=== PATIENT | female | born 1930 | race Caucasian/White ===

== ENCOUNTER 2017-01-24 14:39 | Inpatient (IN) | payer BC, MEDICARE ==
[~2017-01-24 14:39] MED LIST: AMLO5TAB96 PO; ASPI81 PO; CALCIUM/MAG PO; COUM3TAB PO; FLOR250C PO; GLIM2TAB PO; GUAI600; METF-324 PO; METH1TAB29 PO; MONT10TA2 PO; TAB-TAB PO; TOPR50TA PO; VITA100017 PO
[2017-01-24 14:44] VITALS: BP 122/60; PULSE 67; RESP 16; TEMP 97.6; O2SAT 95
[2017-01-24] MEDS ORDERED: ASPI-516 CHEW (15:35)
[2017-01-24] MEDS ORDERED: CANA300T PO (15:35)
[2017-01-24] MEDS ORDERED: METO25TA3 PO (15:35)
[2017-01-24] MEDS ORDERED: [UNRECOGNIZED DRUG - REMARK] PO (15:35)
[2017-01-24] MEDS ORDERED: MULT1TAB46 PO (15:35)
[2017-01-24] MEDS ORDERED: SODI1TAB PO (15:35)
--- NOTE | 2017-01-24 15:47 | PD ---
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 Patient reports pain for the past 2 weeks. She is a poor historian. She denies any fever, chills, nausea, or vomiting. States she went to Dr. Harris's office today and was seen by a lady in the office who asked them to return a later time so that the doctor could see the wound. When he saw her, he recommended she come to the emergency room for admission to medical service and infectious disease consultation. Patient has history of diabetes and hypertension. 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 PFSH Past Medical History Arthritis: Yes Cancer: Yes (COLON) Cardiac Catheterization: Yes Cardiovascular Problems: Yes (CARDIAC STENT) Chemotherapy: No Chest Pain: Yes Diabetes: Yes Patient Takes Glucophage: Yes (metformin) Diminished Hearing: Yes Endocrine: Yes Gastrointestinal Disorders: Yes GERD: Yes Genitourinary: Yes (BLADDER INCONTINENCE) Hiatal Hernia: Yes Hypertension: Yes Immune Disorder: Yes Implanted Vascular Access Dvce: Yes Musculoskeletal: Yes Neurologic: Yes Psychiatric: No Reproductive: No Respiratory: No Migraines: Yes Radiation Therapy: No Ulcer: Yes (HX) PNEUMOCCOCAL Vaccine (Year): 1 Menopausal: Yes Past Surgical History Abdominal Surgery: Yes (COLON RESECTION ) Body Medical Devices: CARDIAC STENT Gynecologic Surgery: Yes ( ) Joint Replacement: Yes (BEATRIZ KNEE; BEATRIZ WRIST ) Oral Surgery: Yes (ADENOIDECTOMY) Other Surgery: Yes (NECK SURGERY 2007) Social History Alcohol Use: No Tobacco Use: No Substance Use: No Allergies-Medications (Allergen,Severity, Reaction): Coded Allergies: ipratropium (Unverified Allergy, Severe, MOUTH SWELLIN; ALLERGIC TO ALL NUTS, 01/24/17) latex (Unverified Allergy, Severe, CAN'T REMEMBER/SEVERE REACTION PER DOCTOR, 01/24/17) shellfish derived (Verified Allergy, Severe, Anaphylaxis, 01/24/17) lactose (Unverified Allergy, Mild, DIGESTION PROBLEMS, 01/24/17) penicillin G (Unverified Allergy, Mild, RASH, 01/24/17) iodine (Verified Allergy, Unknown, 01/24/17) Reported Meds & Prescriptions Reported Meds & Active Scripts Active Reported Invokana (Canagliflozin) 300 Mg Tab 300 Mg PO DAILY Take before 1st meal of day. [antithyroid] 30 Mg PO DAILY Sodium Chloride 1 Gram Tab 1 Gm PO BID Multi Vitamin Daily (Multiple Vitamin) 1 Tab Tab 1 Tab PO DAILY Aspirin 81 Mg Chew 81 Mg CHEW DAILY Metoprolol Tartrate 25 Mg Tab 25 Mg PO BID Review of Systems Except as stated in HPI: all other systems reviewed are Neg Physical Exam Narrative GENERAL: Well-nourished, well-developed female in acute distress. Afebrile. Ambulatory. SKIN: Focused skin assessment warm/dry. There is a 3-4 cm skin tear at the intergluteal cleft with barrier cream in place. No surrounding erythema. HEAD: Normocephalic. EYES: No scleral icterus. No injection or drainage. NECK: Supple, trachea midline. No JVD or lymphadenopathy. CARDIOVASCULAR: Regular rate and rhythm without murmurs, gallops, or rubs. RESPIRATORY: Breath sounds equal bilaterally. No accessory muscle use. GENITOURINARY: Examined in the presence of a nurse. Normal external genitalia. There is a 3 cm abscess that spontaneously draining to the right labia majora. It is tender to palpation. No obvious lymphangitis. Data Data Last Documented VS Vital Signs Date Time Temp Pulse Resp B/P (MAP) Pulse Ox O2 Delivery O2 Flow Rate FiO2 01/24/17 16:59 98 Nasal Cannula 2.00 01/24/17 16:59 01/24/17 14:53 18 01/24/17 14:44 97.6 67 Orders Orders Complete Blood Count With Diff (01/24/17 15:52) Comprehensive Metabolic Panel (01/24/17 15:52) Lactic Acid Sepsis Protocol (01/24/17 15:52) Blood Culture (01/24/17 15:52) Wound Culture And Gram Stain (01/24/17 15:52) Blood Glucose (01/24/17 15:52) Ecg Monitoring (01/24/17 15:52) Iv Access Insert/Monitor (01/24/17 15:52) Oximetry (01/24/17 15:52) Oxygen Administration (01/24/17 15:52) Aztreonam Inj (Azactam Inj) (01/24/17 15:52) Metronidazole 500 Mg Inj (Flagyl 500 Mg (01/24/17 15:52) Vancomycin Inj (Vancomycin Inj) (01/24/17 15:52) Admit Order (Ed Use Only) (01/24/17 ) Film Painter / Telemetry LOCO.Q8H (01/24/17 18:03) Vital Signs (Adult) Q4H (01/24/17 18:03) Activity Oob With Assistance (01/24/17 18:03) Notify Dr: Other (01/24/17 18:03) Place In Observation (01/24/17 ) Vital Signs (Adult) Q4H (01/24/17 18:04) Activity Oob With Assistance (01/24/17 18:04) Film Painter / Telemetry .CONTINUOUS (01/24/17 18:04) Diet 1800 Ada Cons Carb (01/24/17 Dinner) Diet Heart Healthy (01/24/17 Dinner) Sodium Chloride 0.9% Flush (Ns Flush) (01/24/17 18:15) Sodium Chloride 0.9% Flush (Ns Flush) (01/24/17 21:00) Basic Metabolic Panel (Bmp) (01/25/17 06:00) Complete Blood Count With Diff (01/25/17 06:00) Pt Request For Service (01/24/17 18:04) Case Management Consult (01/24/17 18:04) Naloxone Inj (Narcan Inj) (01/24/17 18:15) Labs Laboratory Tests Test 01/24/17 16:35 White Blood Count 6.5 TH/MM3 Red Blood Count 4.82 MIL/MM3 Hemoglobin 11.1 GM/DL Hematocrit 34.7 % Mean Corpuscular Volume 71.9 FL Mean Corpuscular Hemoglobin 23.1 PG Mean Corpuscular Hemoglobin Concent 32.1 % Red Cell Distribution Width 17.8 % Platelet Count 255 TH/MM3 Mean Platelet Volume 7.6 FL Neutrophils (%) (Auto) 69.3 % Lymphocytes (%) (Auto) 18.2 % Monocytes (%) (Auto) 10.2 % Eosinophils (%) (Auto) 1.9 % Basophils (%) (Auto) 0.4 % Neutrophils # (Auto) 4.5 TH/MM3 Lymphocytes # (Auto) 1.2 TH/MM3 Monocytes # (Auto) 0.7 TH/MM3 Eosinophils # (Auto) 0.1 TH/MM3 Basophils # (Auto) 0.0 TH/MM3 CBC Comment DIFF FINAL Differential Comment Blood Urea Nitrogen 14 MG/DL Creatinine 0.83 MG/DL Random Glucose 98 MG/DL Total Protein 7.0 GM/DL Albumin 3.0 GM/DL Calcium Level 8.7 MG/DL Alkaline Phosphatase 102 U/L Aspartate Amino Transf (AST/SGOT) 19 U/L Alanine Aminotransferase (ALT/SGPT) 12 U/L Total Bilirubin 0.3 MG/DL Sodium Level 129 MEQ/L Potassium Level 4.7 MEQ/L Chloride Level 95 MEQ/L Carbon Dioxide Level 28.2 MEQ/L Anion Gap 6 MEQ/L Estimat Glomerular Filtration Rate 65 ML/MIN Lactic Acid Level 0.9 mmol/L MDM Medical Decision Making Medical Screen Exam Complete: Yes Emergency Medical Condition: Yes Medical Record Reviewed: Yes Differential Diagnosis Abscess, cellulitis, Bartholin's cyst, folliculitis Narrative Course 86-year-old female with history of diabetes, hyponatremia, and hypertension presents to the emergency room for evaluation of right labial abscess that started an unknown amount of time ago. Patient reports pain for the past 2 weeks but is a poor historian. She denies history of fever, chills, nausea, or vomiting. States she went to her RECYCLE WORKER today, Dr. Harris, who recommended she come to the emergency room for IV antibiotics. Physical exam is reassuring. Patient is resting comfortably. Vital signs stable. There is a 3 cm spontaneously draining abscess to the right labia majora. It is extremely tender to palpation. CBC is essentially unremarkable. Shows mild anemia. CMP shows hyponatremia which is chronic for patient. Lactic acid is 0.9. Wound culture of the draining wound was collected. I spoke to patient's RECYCLE WORKER who states he would like to have the patient admitted for IV antibiotics and infectious disease consultation given her multiple comorbidities. He will be happy to consult. States he will not be taking her to to the OR for incision and drainage. Patient is agreeable to plan. I spoke to the hospitalist on-call , Dr. Carpio, who agrees to admit this patient to her service. Patient's primary care physician, Dr. Ortiz, will take over care in the morning. Diagnosis Primary Impression: Vulvar abscess Condition: Stable Abbey Sparrow Jan 24, 2017 15:47
[2017-01-24] MEDS ORDERED: VANCOMYCIN INJ 1,000 MG in SODIUM CHLOR 0.9% 250 ML INJ 250 ML IV STA (15:52)
[2017-01-24] MEDS ORDERED: metroNIDAZOLE 500 MG INJ 100 ML IV STA (15:52)
[2017-01-24] MEDS ORDERED: AZTREONAM INJ 2,000 MG in SODIUM CHLORIDE 0.9% INJ 100 ML IV STA (15:52)
[2017-01-24 16:59] VITALS: O2SAT 98
[2017-01-24 17:13] LABS: AUTOMATED NEUTROPHIL # 4.5 TH/MM3 (1.8-7.7); BASOPHIL % 0.4 % (0.0-2.0); EOSINOPHIL # 0.1 TH/MM3 (0-0.4); EOSINOPHIL % 1.9 % (0.0-4.0); HEMATOCRIT 34.7 % (35.0-46.0); HEMO FLAGS DIFF FINAL; LYMPH % 18.2 % (9.0-44.0); LYMPHOCYTE # 1.2 TH/MM3 (1.0-4.8); MEAN CELL VOLUME 71.9 FL (80.0-100.0); MEAN CORPUSCULAR HEMOGLOBIN 23.1 PG (27.0-34.0); MEAN CORPUSCULAR HGB CONC 32.1 % (32.0-36.0); MONO % 10.2 % (0.0-8.0); NEUT % 69.3 % (16.0-70.0); PLATELET COUNT 255 TH/MM3 (150-450); RED BLOOD COUNT 4.82 MIL/MM3 (4.00-5.30); RED CELL DISTRIBUTION WIDTH 17.8 % (11.6-17.2); WHITE BLOOD COUNT 6.5 TH/MM3 (4.0-11.0)
[2017-01-24 17:32] LABS: ALT (GPT) 12 U/L (10-53); ANION GAP 6 MEQ/L (5-15); AST (GOT) 19 U/L (15-37); BICARBONATE 28.2 MEQ/L (21.0-32.0); BLOOD UREA NITROGEN 14 MG/DL (7-18); CHLORIDE 95 MEQ/L (98-107); GLOMERULAR FILTRATION RATE 65 ML/MIN (>89); POTASSIUM 4.7 MEQ/L (3.5-5.1); SODIUM (NA) 129 MEQ/L (136-145)
[2017-01-24 17:35] LABS: ALKALINE PHOSPHATASE 102 U/L (45-117); TOTAL BILIRUBIN ADULT 0.3 MG/DL (0.2-1.0)
[2017-01-24] MEDS ORDERED: SODIUM CHLORIDE 0.9% FLUSH 10 ML FLUSH IV FLUSH PRN (18:15)
[2017-01-24] MEDS ORDERED: NALOXONE HCL 0.4 MG/ML AMP IV PUSH PRN (18:15)
--- NOTE | 2017-01-24 18:49 | HHI.HP ---
[facility] Unknown Admission Diagnosis Vulvar Abscess Diagnoses: Travel History International Travel<30 Days: No Contact w/Intl Traveler <30 Da: No Traveled to Known Affected Are: No History of Present Illness History from patient, ER physician, medication, interfere medical records. About 40 minutes into my interview with the patient, patient's daughter also presented at the bedside and provided further history. Patient herself is a poor historian. She does carry the diagnosis of dementia. The daughter is the power of criminal defense attorney. However patient is able to give me details of her symptoms though. Patient initially stated that she was "given funny tea at the place I live" --- - she then later reported that that was Metamucil. The daughter stated that it was also metformin. had diarrhea for 3-4 weeks lost weight 50lbs in past several months cant count how many times diarrhea very black stool no loss of appetite but was sick and tired of cooking since - thats why losing weight Today though, patient was sent by her dredge pumper Dr. Harris She was having some anemia abscess which is draining and patient thought that he was supposed to be done surgery. She reports she was not on any antibiotics as an outpatient at the assisted living facility where she lives. Per ER physician, they have discussed at length with patient's dredge pumper over the phone. He would like the patient to be admitted under medical service for IV antibiotics since patient is an elderly lady who lives at an assisted living facility without nursing care or ability to give IV antibiotics. She is also a diabetic. Review of Systems ROS Limitations: Poor Historian Except as stated in HPI: all other systems reviewed are Neg Past Family Social History Past Medical History Hypertension Diabetes CAD. Status post cardiac stent and angiogram History of CVA COPD History of colon cancer status post surgery. No chemotherapy. 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 Past Surgical History Colon resection Coronary angiogram and stenting Bilateral knee and wrist surgeries Adenoidectomy Neck surgery in 2007 Allergies: Coded Allergies: ipratropium (Unverified Allergy, Severe, MOUTH SWELLIN; ALLERGIC TO ALL NUTS, 01/24/17) latex (Unverified Allergy, Severe, CAN'T REMEMBER/SEVERE REACTION PER DOCTOR, 01/24/17) shellfish derived (Verified Allergy, Severe, Anaphylaxis, 01/24/17) lactose (Unverified Allergy, Mild, DIGESTION PROBLEMS, 01/24/17) penicillin G (Unverified Allergy, Mild, RASH, 01/24/17) iodine (Verified Allergy, Unknown, 01/24/17) Family History None that she knows of Social History Lives at [facility] Denies any smoking/alcohol abuse/drug abuse. Physical Exam Vital Signs Vital Signs Date Time Temp Pulse Resp B/P (MAP) Pulse Ox O2 Delivery O2 Flow Rate FiO2 01/24/17 16:59 98 Nasal Cannula 2.00 01/24/17 16:59 98 Nasal Cannula 2.00 01/24/17 14:53 18 01/24/17 14:44 97.6 67 16 122/60 (80) 95 Room Air Physical Exam GENERAL: This is a well-nourished, well-developed patient, in no apparent distress. Very pleasant, originally from [facility]. SKIN: No rashes, ecchymoses or lesions. Cool and dry. HEAD: Atraumatic. Normocephalic. No temporal or scalp tenderness. EYES: No scleral icterus. No injection or drainage. ENT: Nose without bleeding, purulent drainage or septal hematoma. Airway patent. NECK: Trachea midline. No JVD . Supple, nontender, no meningeal signs. CARDIOVASCULAR: Regular rate and rhythm without murmurs, gallops, or rubs. RESPIRATORY: Clear to auscultation. Breath sounds equal bilaterally. No wheezes , rales, or rhonchi. GASTROINTESTINAL: Abdomen soft, non-tender, nondistended. No guarding : right labia majora with spontaneous drainage MUSCULOSKELETAL: Extremities without clubbing, cyanosis, or edema. . No calf tenderness. NEUROLOGICAL: Awake and alert. Motor and sensory grossly within normal limits. Normal speech. Laboratory Laboratory Tests Test 01/24/17 16:35 White Blood Count 6.5 Red Blood Count 4.82 Hemoglobin 11.1 Hematocrit 34.7 Mean Corpuscular Volume 71.9 Mean Corpuscular Hemoglobin 23.1 Mean Corpuscular Hemoglobin Concent 32.1 Red Cell Distribution Width 17.8 Platelet Count 255 Mean Platelet Volume 7.6 Neutrophils (%) (Auto) 69.3 Lymphocytes (%) (Auto) 18.2 Monocytes (%) (Auto) 10.2 Eosinophils (%) (Auto) 1.9 Basophils (%) (Auto) 0.4 Neutrophils # (Auto) 4.5 Lymphocytes # (Auto) 1.2 Monocytes # (Auto) 0.7 Eosinophils # (Auto) 0.1 Basophils # (Auto) 0.0 CBC Comment DIFF FINAL Differential Comment Blood Urea Nitrogen 14 Creatinine 0.83 Random Glucose 98 Total Protein 7.0 Albumin 3.0 Calcium Level 8.7 Alkaline Phosphatase 102 Aspartate Amino Transf (AST/SGOT) 19 Alanine Aminotransferase (ALT/SGPT) 12 Total Bilirubin 0.3 Sodium Level 129 Potassium Level 4.7 Chloride Level 95 Carbon Dioxide Level 28.2 Anion Gap 6 Estimat Glomerular Filtration Rate 65 Lactic Acid Level 0.9 Date/Time Source Procedure Growth Status 01/24/17 16:40 Blood Peripheral Aerobic Blood Culture Pending Received 01/24/17 16:40 Blood Peripheral Anaerobic Blood Culture Pending Received 01/24/17 16:30 Wound Other Gram Stain - Final Resulted 01/24/17 16:30 Wound Other Wound Culture Pending Resulted Result Diagram: 01/24/17 1635 01/24/17 1635 Caprini VTE Risk Assessment Caprini VTE Risk Assessment: Mod/High Risk (score >= 2) Caprini Risk Assessment Model Point Value = 1 Point Value = 2 Point Value = 3 Point Value = 5 Age 41-60 Minor surgery BMI > 25 kg/m2 Swollen legs Varicose veins or History of unexplained or recurrent spontaneous Oral contraceptives or hormone replacement Sepsis (< 1 month) Serious lung disease, including pneumonia (< 1 month) Abnormal pulmonary function Acute myocardial infarction Congestive heart failure (< 1 month) History of inflammatory bowel disease Medical patient at bed rest Age 61-74 Arthroscopic surgery Major open surgery (> 45 min) Laparoscopic surgery (> 45 min) Malignancy Confined to bed (> 72 hours) Immobilizing plaster cast Central venous access Age >= 75 History of VTE Family history of VTE Factor V Leiden Prothrombin [id number] Lupus anticoagulant Anticardiolipin antibodies Elevated serum homocysteine Heparin-induced thrombocytopenia Other congenital or acquired thrombophilia Stroke (< 1 month) Elective arthroplasty Hip, pelvis, or leg fracture Acute spinal cord injury (< 1 month) Prophylaxis Regimen Total Risk Factor Score Risk Level Prophylaxis Regimen 0-1 Low Early ambulation 2 Moderate Order ONE of the following: *Sequential Compression Device (SCD) *Heparin 5000 units SQ BID 3-4 Higher Order ONE of the following medications: *Heparin 5000 units SQ TID *Enoxaparin/Lovenox 40 mg SQ daily (WT < 150 kg, CrCl > 30 mL/min) *Enoxaparin/Lovenox 30 mg SQ daily (WT < 150 kg, CrCl > 10-29 mL/min) *Enoxaparin/Lovenox 30 mg SQ BID (WT < 150 kg, CrCl > 30 mL/min) AND/OR *Sequential Compression Device (SCD) 5 or more Highest Order ONE of the following medications: *Heparin 5000 units SQ TID (Preferred with Epidurals) *Enoxaparin/Lovenox 40 mg SQ daily (WT < 150 kg, CrCl > 30 mL/min) *Enoxaparin/Lovenox 30 mg SQ daily (WT < 150 kg, CrCl > 10-29 mL/min) *Enoxaparin/Lovenox 30 mg SQ BID (WT < 150 kg, CrCl > 30 mL/min) AND *Sequential Compression Device (SCD) Assessment and Plan Assessment and Plan Impression: Spontaneous draining right labia or abscess Diabetic elderly patient with poor outpatient follow-up Diarrhea. Likely medications induced. However worsening her abscess issues. Hypertension Diabetes CAD. Status post cardiac stent and angiogram History of CVA COPD History of colon cancer status post surgery. No chemotherapy. 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 For now, patient was given vancomycin/azactam/Flagyl in the ER. We will continue with levofloxacin/Flagyl. Follow renal function. Resume home meds. Nursing orders have been written to check whether patient is still on steroids at home and whether she is taking thyroid supplements. Fingersticks monitoring with sliding scale coverage. DVT prophylaxis on Lovenox. Discussed Condition With patient, daughter, ER nurse, ER Ruth Cm MD Jan 24, 2017 18:49
[2017-01-24] MEDS: SODIUM CHLORIDE 0.9% FLUSH 10 ML FLUSH IV FLUSH SCH (21:00)
[2017-01-24] MEDS: METOPROLOL TARTRATE 25 MG TAB PO SCH (21:00)
[2017-01-24] MEDS: SODIUM CHLORIDE 1 GRAM TAB PO SCH (21:00)
[2017-01-24 21:18] VITALS: BP 164/75; PULSE 65; RESP 15; TEMP 97.4; O2SAT 99
[2017-01-24] MEDS: metroNIDAZOLE 500 MG INJ 100 ML IV SCH (23:00)
[2017-01-25] VITALS (7 sets, daily range): BP systolic 118–165; BP diastolic 57–90; PULSE 61–87; RESP 16–18; TEMP 97.5–98.2; O2SAT 92–97
[2017-01-25] MEDS: metroNIDAZOLE 500 MG INJ 100 ML IV SCH ×2 (06:28→11:55)
[2017-01-25] MEDS: MULTIVITAMIN TAB PO SCH (09:00)
[2017-01-25] MEDS: SODIUM CHLORIDE 0.9% FLUSH 10 ML FLUSH IV FLUSH SCH ×2 (09:00→22:17)
[2017-01-25] MEDS ORDERED: LEVOFLOXACIN 750 MG PREMIX INJ 150 ML IV SCH (09:00)
[2017-01-25] MEDS: SODIUM CHLORIDE 1 GRAM TAB PO SCH ×2 (09:00→22:16)
[2017-01-25] MEDS: METOPROLOL TARTRATE 25 MG TAB PO SCH ×2 (09:00→22:16)
[2017-01-25] MEDS: ASPIRIN 81 MG CHEW TAB CHEW SCH (09:00)
[2017-01-25 11:07] LABS: BASOPHIL % 0.5 % (0.0-2.0); EOSINOPHIL # 0.1 TH/MM3 (0-0.4); EOSINOPHIL % 2.9 % (0.0-4.0); HEMATOCRIT 33.8 % (35.0-46.0); HEMO FLAGS DIFF FINAL; LYMPH % 23.4 % (9.0-44.0); LYMPHOCYTE # 1.2 TH/MM3 (1.0-4.8); MEAN CORPUSCULAR HEMOGLOBIN 23.2 PG (27.0-34.0); MEAN CORPUSCULAR HGB CONC 32.3 % (32.0-36.0); MONO % 11.9 % (0.0-8.0); NEUT % 61.3 % (16.0-70.0); PLATELET COUNT 225 TH/MM3 (150-450); RED BLOOD COUNT 4.69 MIL/MM3 (4.00-5.30); WHITE BLOOD COUNT 4.9 TH/MM3 (4.0-11.0)
[2017-01-25 11:28] LABS: BICARBONATE 26.8 MEQ/L (21.0-32.0); POTASSIUM 4.1 MEQ/L (3.5-5.1)
--- NOTE | 2017-01-25 12:43 | HHI.HP ---
History of Present Illness Service Medicine Primary Care Physician Unknown Admission Diagnosis Vulvar Abscess Diagnoses: (1) Vulvar abscess History of Present Illness Patient is a 86 year old female who was sent to the ER per MANAGER LANGUAGE Dr. Harris for vulvar abscess. Patient is currently a resident at a assisted living facility. Per ER physician note, they have discussed at length with patient's paper cone drying machine operator over the phone. He would like the patient to be admitted under medical service for IV antibiotics since patient is an elderly lady who lives at an assisted living facility without nursing care or ability to give IV antibiotics. She is also a diabetic. Review of Systems Respiratory: DENIES: Cough, Snoring, Wheezing, Sputum production, Shortness of breath Cardiovascular: DENIES: Chest pain, Palpitations Gastrointestinal: DENIES: Constipation, Diarrhea, Nausea, Vomiting Genitourinary: COMPLAINS OF: Vaginal discharge (abcess noted with drainage) Psychiatric: DENIES: Anxiety, Depression Past Family Social History Allergies: Coded Allergies: ipratropium (Unverified Allergy, Severe, MOUTH SWELLIN; ALLERGIC TO ALL NUTS, 01/24/17) latex (Unverified Allergy, Severe, CAN'T REMEMBER/SEVERE REACTION PER DOCTOR, 01/24/17) shellfish derived (Verified Allergy, Severe, Anaphylaxis, 01/24/17) lactose (Unverified Allergy, Mild, DIGESTION PROBLEMS, 01/24/17) penicillin G (Unverified Allergy, Mild, RASH, 01/24/17) iodine (Verified Allergy, Unknown, 01/24/17) Past Medical History Past Medical History Hypertension Diabetes CAD. Status post cardiac stent and angiogram History of CVA COPD History of colon cancer status post surgery. No chemotherapy. 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 Past Surgical History Past Surgical History Colon resection Coronary angiogram and stenting Bilateral knee and wrist surgeries Adenoidectomy Neck surgery in 2007 Active Ordered Medications Current Medications Medications (Trade) Dose Ordered Sig/Maddie Route Start Time Stop Time Status Last Admin (NS Flush) 2 ml UNSCH PRN IV FLUSH 01/24/17 18:15 (NS Flush) 2 ml BID IV FLUSH 01/24/17 21:00 01/25/17 09:00 (Narcan Inj) 0.4 mg UNSCH PRN IV PUSH 01/24/17 18:15 Levofloxacin/ Dextrose 150 ml @ 100 mls/hr Q24H IV 12/20/17 09:00 01/25/17 09:00 Metronidazole 100 ml @ 100 mls/hr Q6H IV 01/24/17 23:00 01/25/17 11:55 (Aspirin Chew) 81 mg DAILY CHEW 01/25/17 09:00 01/25/17 09:00 (Lopressor) 25 mg BID PO 01/24/17 21:00 01/25/17 09:00 (Sodium Chloride) 1 gm BID PO 01/24/17 21:00 01/25/17 09:00 Patient Own Medication PT OWN MED: Canagliflozin (Invoka... DAILY PO 01/25/17 09:00 Future Hold (Theragran) 1 tab DAILY PO 01/25/17 09:00 01/25/17 09:00 Social History Past Medical History Hypertension Diabetes CAD. Status post cardiac stent and angiogram History of CVA COPD Social History Lives at [facility] Denies any smoking/alcohol abuse/drug abuse. Physical Exam Vital Signs Vital Signs Date Time Temp Pulse Resp B/P (MAP) Pulse Ox O2 Delivery O2 Flow Rate FiO2 01/25/17 08:16 98.1 87 18 165/73 (103) 97 01/25/17 06:54 87 01/25/17 03:40 98.1 86 18 141/65 (90) 95 01/25/17 00:19 97.5 68 16 143/70 (94) 95 01/24/17 21:18 97.4 65 15 164/75 (104) 99 01/24/17 19:45 01/24/17 16:59 98 Nasal Cannula 2.00 01/24/17 16:59 98 Nasal Cannula 2.00 01/24/17 14:53 18 01/24/17 14:44 97.6 67 16 122/60 (80) 95 Room Air Physical Exam GENERAL: This is a well-nourished, well-developed patient, in no apparent distress. Very pleasant, originally from [place]. SKIN: No rashes, ecchymoses or lesions. Cool and dry. HEAD: Atraumatic. Normocephalic. No temporal or scalp tenderness. EYES: No scleral icterus. No injection or drainage. ENT: Nose without bleeding, purulent drainage or septal hematoma. Airway patent. NECK: Trachea midline. No JVD . Supple, nontender, no meningeal signs. CARDIOVASCULAR: Regular rate and rhythm without murmurs, gallops, or rubs. RESPIRATORY: Clear to auscultation. Breath sounds equal bilaterally. No wheezes , rales, or rhonchi. GASTROINTESTINAL: Abdomen soft, non-tender, nondistended. No guarding : right labia majora with spontaneous drainage MUSCULOSKELETAL: Extremities without clubbing, cyanosis, or edema. . No calf tenderness. NEUROLOGICAL: Awake and alert. Motor and sensory grossly within normal limits. Normal speech Laboratory Laboratory Tests Test 01/24/17 16:35 01/25/17 10:33 White Blood Count 6.5 4.9 Red Blood Count 4.82 4.69 Hemoglobin 11.1 10.9 Hematocrit 34.7 33.8 Mean Corpuscular Volume 71.9 72.0 Mean Corpuscular Hemoglobin 23.1 23.2 Mean Corpuscular Hemoglobin Concent 32.1 32.3 Red Cell Distribution Width 17.8 18.0 Platelet Count 255 225 Mean Platelet Volume 7.6 7.4 Neutrophils (%) (Auto) 69.3 61.3 Lymphocytes (%) (Auto) 18.2 23.4 Monocytes (%) (Auto) 10.2 11.9 Eosinophils (%) (Auto) 1.9 2.9 Basophils (%) (Auto) 0.4 0.5 Neutrophils # (Auto) 4.5 3.0 Lymphocytes # (Auto) 1.2 1.2 Monocytes # (Auto) 0.7 0.6 Eosinophils # (Auto) 0.1 0.1 Basophils # (Auto) 0.0 0.0 CBC Comment DIFF FINAL DIFF FINAL Differential Comment Blood Urea Nitrogen 14 16 Creatinine 0.83 0.79 Random Glucose 98 141 Total Protein 7.0 Albumin 3.0 Calcium Level 8.7 8.3 Alkaline Phosphatase 102 Aspartate Amino Transf (AST/SGOT) 19 Alanine Aminotransferase (ALT/SGPT) 12 Total Bilirubin 0.3 Sodium Level 129 131 Potassium Level 4.7 4.1 Chloride Level 95 98 Carbon Dioxide Level 28.2 26.8 Anion Gap 6 6 Estimat Glomerular Filtration Rate 65 69 Lactic Acid Level 0.9 Date/Time Source Procedure Growth Status 01/24/17 16:40 Blood Peripheral Aerobic Blood Culture - Preliminary NO GROWTH IN 1 DAY Resulted 01/24/17 16:40 Blood Peripheral Anaerobic Blood Culture - Preliminary NO GROWTH IN 1 DAY Resulted 01/24/17 16:30 Wound Other Gram Stain - Final Resulted 01/24/17 16:30 Wound Culture - Preliminary S. Aureus Mrsa Gram Negative Aaron Resulted Result Diagram: 01/25/17 1033 01/25/17 1033 Caprinrosas VTE Risk Assessment Caprini VTE Risk Assessment: Mod/High Risk (score >= 2) Caprini Risk Assessment Model Point Value = 1 Point Value = 2 Point Value = 3 Point Value = 5 Age 41-60 Minor surgery BMI > 25 kg/m2 Swollen legs Varicose veins or History of unexplained or recurrent spontaneous Oral contraceptives or hormone replacement Sepsis (< 1 month) Serious lung disease, including pneumonia (< 1 month) Abnormal pulmonary function Acute myocardial infarction Congestive heart failure (< 1 month) History of inflammatory bowel disease Medical patient at bed rest Age 61-74 Arthroscopic surgery Major open surgery (> 45 min) Laparoscopic surgery (> 45 min) Malignancy Confined to bed (> 72 hours) Immobilizing plaster cast Central venous access Age >= 75 History of VTE Family history of VTE Factor V Leiden Prothrombin [id number] Lupus anticoagulant Anticardiolipin antibodies Elevated serum homocysteine Heparin-induced thrombocytopenia Other congenital or acquired thrombophilia Stroke (< 1 month) Elective arthroplasty Hip, pelvis, or leg fracture Acute spinal cord injury (< 1 month) Prophylaxis Regimen Total Risk Factor Score Risk Level Prophylaxis Regimen 0-1 Low Early ambulation 2 Moderate Order ONE of the following: *Sequential Compression Device (SCD) *Heparin 5000 units SQ BID 3-4 Higher Order ONE of the following medications: *Heparin 5000 units SQ TID *Enoxaparin/Lovenox 40 mg SQ daily (WT < 150 kg, CrCl > 30 mL/min) *Enoxaparin/Lovenox 30 mg SQ daily (WT < 150 kg, CrCl > 10-29 mL/min) *Enoxaparin/Lovenox 30 mg SQ BID (WT < 150 kg, CrCl > 30 mL/min) AND/OR *Sequential Compression Device (SCD) 5 or more Highest Order ONE of the following medications: *Heparin 5000 units SQ TID (Preferred with Epidurals) *Enoxaparin/Lovenox 40 mg SQ daily (WT < 150 kg, CrCl > 30 mL/min) *Enoxaparin/Lovenox 30 mg SQ daily (WT < 150 kg, CrCl > 10-29 mL/min) *Enoxaparin/Lovenox 30 mg SQ BID (WT < 150 kg, CrCl > 30 mL/min) AND *Sequential Compression Device (SCD) Assessment and Plan Problem List: (1) Vulvar abscess ICD Codes: N76.4 - Abscess of vulva Status: Acute (2) Diabetes ICD Codes: E11.9 - Type 2 diabetes mellitus without complications (3) Hyponatremia ICD Codes: E87.1 - Hypo-osmolality and hyponatremia (4) HTN (hypertension) ICD Codes: I10 - Essential (primary) hypertension Assessment and Plan 01/25/17 Vulvar abscess; Wound culture positive for MRSA will consult ID. MANAGER LANGUAGE consulted Diabetes: BS AC and HS on invokona will add SS Hyponatremia: NA131 on replacement will monitor HTN: continue metoprolol I and the SENIOR SYSTEMS ARCHITECT have both examined this patient and reviewed this note and I agree with these findings and plan of care. Juan Ortiz DO Discharge Planning bettie Aissatou Mcneal Jan 25, 2017 12:43
--- NOTE | 2017-01-25 15:10 | PD.ID.CON ---
History of Present Illness Service ID Consult Requested By Dr Harris Reason for Consult R labial abscess, MRSA Primary Care Physician Unknown Diagnoses: History of Present Illness Patient is a 86 year old female who was sent to the ER per WASHTUB WORKER HELPER Dr. Harris for vulvar abscess. Patient is currently a resident at a assisted living facility with multiple med problems including DM Pt is afebrile and her vss are normal Her WBC is within nl limits Pt is a quite poor historian, she thinks the tender lump was boothering her for couple month Dr Ba unroofed the abscess and sent for clx, she thinks pain improved after I dw Dr Harris - office clx is growing MRSA Surfice clx was obtained [facility] and its growing MRSA and a GNB Past Family Social History Allergies: Coded Allergies: ipratropium (Unverified Allergy, Severe, MOUTH SWELLIN; ALLERGIC TO ALL NUTS, 01/24/17) latex (Unverified Allergy, Severe, CAN'T REMEMBER/SEVERE REACTION PER DOCTOR, 01/24/17) shellfish derived (Verified Allergy, Severe, Anaphylaxis, 01/24/17) lactose (Unverified Allergy, Mild, DIGESTION PROBLEMS, 01/24/17) penicillin G (Unverified Allergy, Mild, RASH, 01/24/17) iodine (Verified Allergy, Unknown, 01/24/17) Past Medical History Hypertension Diabetes CAD. Status post cardiac stent and angiogram History of CVA COPD History of colon cancer status post surgery. No chemotherapy. 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 Physical Exam Vital Signs Vital Signs Date Time Temp Pulse Resp B/P (MAP) Pulse Ox O2 Delivery O2 Flow Rate FiO2 01/25/17 14:23 97.5 61 16 120/60 (80) 93 01/25/17 12:30 97.5 61 18 118/57 (77) 92 01/25/17 08:16 98.1 87 18 165/73 (103) 97 01/25/17 06:54 87 01/25/17 03:40 98.1 86 18 141/65 (90) 95 01/25/17 00:19 97.5 68 16 143/70 (94) 95 01/24/17 21:18 97.4 65 15 164/75 (104) 99 01/24/17 19:45 01/24/17 16:59 98 Nasal Cannula 2.00 01/24/17 16:59 98 Nasal Cannula 2.00 Physical Exam CONSTITUTIONAL/GENERAL: This is an aelderly frail female patient, in no apparent distress. TUBES/LINES/DRAINS: SKIN: No jaundice, rashes, or lesions. Skin temperature appropriate. Not diaphoretic. HEAD: Atraumatic. Normocephalic. EYES: Pupils equal and round and reactive. Extraocular motions intact. No scleral icterus. No injection or drainage. Fundi not examined. ENT: Hearing grossly normal. Nose without bleeding or purulent drainage. Throat without visible erythema, exudates, masses, or lesions. NECK: Trachea midline. Supple, nontender. CARDIOVASCULAR: Regular rate and rhythm without murmurs, gallops, or rubs. No JVD. Peripheral pulses symmetric. RESPIRATORY/CHEST: Symmetric, unlabored respirations. Clear to auscultation. Breath sounds equal bilaterally. No wheezes, rales, or rhonchi. GASTROINTESTINAL: Abdomen soft, non-tender, nondistended. No hepato-splenomegaly , or palpable masses. No guarding. Bowel sounds present. GENITOURINARY: Without palpable bladder distension. Mildly edematous R labia with small temnder unroofed lesion, no purulence, white devitalised tissue in the wound bed MUSCULOSKELETAL: Extremities without clubbing, cyanosis, or edema. No joint tenderness or effusion noted. No calf tenderness. No mottling or clubbing. LYMPHATICS: No palpable cervical or supraclavicular adenopathy. Mildly assymteric inguinal nodes, with R> L NEUROLOGICAL: Awake and alert. Motor and sensory grossly within normal limits. Follows commands. Clear speech . Moves all extremities. PSYCHIATRIC: No obvious anxiety/depression. no apparent hallucinations or other psychotic thought process. Laboratory Laboratory Tests Test 01/24/17 16:35 01/25/17 10:33 White Blood Count 6.5 4.9 Red Blood Count 4.82 4.69 Hemoglobin 11.1 10.9 Hematocrit 34.7 33.8 Mean Corpuscular Volume 71.9 72.0 Mean Corpuscular Hemoglobin 23.1 23.2 Mean Corpuscular Hemoglobin Concent 32.1 32.3 Red Cell Distribution Width 17.8 18.0 Platelet Count 255 225 Mean Platelet Volume 7.6 7.4 Neutrophils (%) (Auto) 69.3 61.3 Lymphocytes (%) (Auto) 18.2 23.4 Monocytes (%) (Auto) 10.2 11.9 Eosinophils (%) (Auto) 1.9 2.9 Basophils (%) (Auto) 0.4 0.5 Neutrophils # (Auto) 4.5 3.0 Lymphocytes # (Auto) 1.2 1.2 Monocytes # (Auto) 0.7 0.6 Eosinophils # (Auto) 0.1 0.1 Basophils # (Auto) 0.0 0.0 CBC Comment DIFF FINAL DIFF FINAL Differential Comment Blood Urea Nitrogen 14 16 Creatinine 0.83 0.79 Random Glucose 98 141 Total Protein 7.0 Albumin 3.0 Calcium Level 8.7 8.3 Alkaline Phosphatase 102 Aspartate Amino Transf (AST/SGOT) 19 Alanine Aminotransferase (ALT/SGPT) 12 Total Bilirubin 0.3 Sodium Level 129 131 Potassium Level 4.7 4.1 Chloride Level 95 98 Carbon Dioxide Level 28.2 26.8 Anion Gap 6 6 Estimat Glomerular Filtration Rate 65 69 Lactic Acid Level 0.9 Date/Time Source Procedure Growth Status 01/24/17 16:40 Blood Peripheral Aerobic Blood Culture - Preliminary NO GROWTH IN 1 DAY Resulted 01/24/17 16:40 Blood Peripheral Anaerobic Blood Culture - Preliminary NO GROWTH IN 1 DAY Resulted 01/24/17 16:30 Wound Other Gram Stain - Final Resulted 01/24/17 16:30 Wound Culture - Preliminary S. Aureus Mrsa Gram Negative Aaron Resulted Result Diagram: 01/25/17 1033 01/25/17 1033 Assessment and Plan Assessment and Plan L labia abscess, MRSA - also growing GNB in surface clx from unroofed abscess, but not in office clx ? contam. Multiple med prob Frail Advanced age chanfe abx to teflaro dc flagyl, azacta, levaquine, vanco Discussed Condition With dalia RN Cheryl Baca Dr, MD Jan 25, 2017 15:10
--- NOTE | 2017-01-25 16:17 | MB ---
cc: RUTHANN WERNER D.O., R. JOHN MD DATE OF CONSULTATION 01/25/2017 REASON FOR CONSULTATION Vulvar abscess. HISTORY OF THE PRESENT ILLNESS Ms. Caballero is an 86-year-old white female para 1-0-1-1 who came to the office yesterday with a vulvar bump. On examination she had a right vulvar abscess that was mildly indurated, draining pus. She is also diabetic and living in an assisted living facility and it was felt she needed to be hospitalized. Because of her multiple medical problems I felt she needed to be managed by her medical doctor and I could consult, so they could take care of her hypertension, her diabetes. She was admitted to the hospital for IV antibiotics and culture of this abscess which this morning grew out MRSA. I have asked the infectious disease specialist, Dr. Otto to see her as well and help with the management of her antibiotics. PAST COMMERCIAL LEASING MANAGER HISTORY She is para 1-0-1-1. She has been menopausal for many years. Her last Pap was 10/2012 and it was negative. PAST MEDICAL HISTORY Remarkable for: 1. Crohn disease. 2. Rheumatoid arthritis. 3. Tuberculosis. 4. Hypertension. 5. Herpes. 6. Colon cancer. PAST SURGICAL HISTORY Remarkable for: 1. Partial colectomy in 1999. 2. Bilateral knee replacements. 3. Bilateral wrist replacements. 4. Bilateral hip replacement. SOCIAL HISTORY She is a . She does not drink alcohol, smoke cigarettes or use recreational drugs. FAMILY HISTORY Her family history, her mother, father had high cholesterol. Her mother had diabetes. ALLERGIES PENICILLIN AND LATEX, LACTOSE, SHELLFISH AND IODINE. REVIEW OF SYSTEMS She denies any headache. No shortness of breath. No chest pain. No abdominal pain. Her bowel function is normal. She has had this lump in her vulva for several weeks. It is not so painful. PHYSICAL EXAMINATION GENERAL: Well-developed, well-nourished female in no acute distress. She looks very comfortable. VITAL SIGNS: Her blood pressure is 118/57. Her temperature is 97.5. She has been afebrile the entire time. Her pulse is 61, respirations are 18. HEENT: Normocephalic, atraumatic. NECK: Supple. Trachea is midline. CHEST: Clear to auscultation and percussion. CARDIOVASCULAR: Heart has regular rate and rhythm without murmur. ABDOMEN: Her abdomen is soft and nontender. She has got a vertical abdominal scar which is well-healed. PELVIC: Her external genitalia, the right vulva has a small area of induration 1 cm x 1 cm. It is draining pus. There is a nice large hole into this abscess. It is not sure so tender. EXTREMITIES: No clubbing, cyanosis or edema. ASSESSMENT/PLAN 1. Vulvar abscess. This represents MRSA infection and she needs to be on adequate coverage. The hospitalist has already started her on antibiotics. I have asked Dr. Otto to see her, to manage the antibiotics. The sensitivity should be ready tomorrow. 2. Diabetes mellitus. We got to make sure that her blood sugar stays under control and that she does not get out of control due to this abscess. 3. Hypertension. Her blood pressure looks excellent today. I do not have her current list of medications, but hopefully her daughter will bring them into the hospital so we can continue her medications as directed. She is in the assisted living facility. I would advise we will check her sensitivities to the MRSA infection and send her home with p.o. antibiotics until that lesion has healed, as long as her diabetes and hypertension are under control. R. Nikhil Harris MD RJV/KK /2:20 PM /3:33 PM
[2017-01-25] MEDS: CEFTAROLINE INJ 600 MG in SODIUM CHLORIDE 0.9% INJ 100 ML IV SCH (17:51)
[2017-01-26] VITALS (10 sets, daily range): BP systolic 109–184; BP diastolic 57–90; PULSE 61–89; RESP 17–24; TEMP 97.5–98.5; O2SAT 97–99
[2017-01-26] MEDS: CEFTAROLINE INJ 600 MG in SODIUM CHLORIDE 0.9% INJ 100 ML IV SCH ×2 (06:48→19:37)
[2017-01-26 09:33] LABS: HEMATOCRIT 36.9 % (35.0-46.0); MEAN CELL VOLUME 71.7 FL (80.0-100.0); MEAN CORPUSCULAR HEMOGLOBIN 23.6 PG (27.0-34.0); MEAN CORPUSCULAR HGB CONC 32.9 % (32.0-36.0); PLATELET COUNT 247 TH/MM3 (150-450); RED BLOOD COUNT 5.15 MIL/MM3 (4.00-5.30); RED CELL DISTRIBUTION WIDTH 17.6 % (11.6-17.2); REVIEW FLAG FINAL
[2017-01-26] MEDS: SODIUM CHLORIDE 0.9% FLUSH 10 ML FLUSH IV FLUSH SCH ×2 (09:36→21:40)
[2017-01-26] MEDS: ASPIRIN 81 MG CHEW TAB CHEW SCH (09:37)
[2017-01-26] MEDS: METOPROLOL TARTRATE 25 MG TAB PO SCH ×2 (09:37→21:39)
[2017-01-26] MEDS: MULTIVITAMIN TAB PO SCH (09:38)
[2017-01-26] MEDS: SODIUM CHLORIDE 1 GRAM TAB PO SCH ×2 (09:38→21:39)
[2017-01-26 09:56] LABS: ANION GAP 9 MEQ/L (5-15); BICARBONATE 25.8 MEQ/L (21.0-32.0); BLOOD UREA NITROGEN 17 MG/DL (7-18); CHLORIDE 96 MEQ/L (98-107); GLOMERULAR FILTRATION RATE 73 ML/MIN (>89); POTASSIUM 3.9 MEQ/L (3.5-5.1); SODIUM (NA) 131 MEQ/L (136-145)
[2017-01-26 10:08] LABS: FREE T4 1.31 NG/DL (0.76-1.46)
--- NOTE | 2017-01-26 12:35 | HHI.PR ---
Subjective Remarks In bed, nurse at bedside, voices she does not want to take her medications. Objective Vital Signs Date Time Temp Pulse Resp B/P (MAP) Pulse Ox O2 Delivery O2 Flow Rate FiO2 01/26/17 12:25 98.4 66 22 129/64 (85) 97 01/26/17 08:38 97.5 74 24 136/83 (100) 97 01/26/17 05:45 97.9 74 20 184/90 (121) 97 01/26/17 01:36 97.8 72 18 165/86 (112) 97 01/25/17 23:01 98.2 75 18 153/90 (111) 96 01/25/17 14:23 97.5 61 16 120/60 (80) 93 Vital Signs Date Time Temp Pulse Resp B/P (MAP) Pulse Ox O2 Delivery O2 Flow Rate FiO2 01/26/17 12:25 98.4 66 22 129/64 (85) 97 01/26/17 08:38 97.5 74 24 136/83 (100) 97 01/26/17 05:45 97.9 74 20 184/90 (121) 97 01/26/17 01:36 97.8 72 18 165/86 (112) 97 01/25/17 23:01 98.2 75 18 153/90 (111) 96 01/25/17 14:23 97.5 61 16 120/60 (80) 93 I/O 01/25/17 01/25/17 01/25/17 01/26/17 01/26/17 01/26/17 07:00 15:00 23:00 07:00 15:00 23:00 Intake Total 480 ml Balance 480 ml Intake Oral 480 ml # Voids 2 Result Diagram: 01/26/17 0850 01/26/17 0850 Objective Remarks Physical Exam GENERAL: This is a well-nourished, well-developed patient, in no apparent distress. Very pleasant, originally from [place]. SKIN: No rashes, ecchymoses or lesions. Cool and dry. HEAD: Atraumatic. Normocephalic. No temporal or scalp tenderness. EYES: No scleral icterus. No injection or drainage. ENT: Nose without bleeding, purulent drainage or septal hematoma. Airway patent. NECK: Trachea midline. No JVD . Supple, nontender, no meningeal signs. CARDIOVASCULAR: Regular rate and rhythm without murmurs, gallops, or rubs. RESPIRATORY: Clear to auscultation. Breath sounds equal bilaterally. No wheezes , rales, or rhonchi. GASTROINTESTINAL: Abdomen soft, non-tender, nondistended. No guarding : right labia majora with spontaneous drainage MUSCULOSKELETAL: Extremities without clubbing, cyanosis, or edema. . No calf tenderness. NEUROLOGICAL: Awake and alert. Motor and sensory grossly within normal limits. Normal speech Medications and IVs Teflaro Iv q12 Assessment and Plan Assessment and Plan 03/28/16 Vulvar abscess; Wound culture positive for MRSA will consult ID. PAVER consulted Diabetes: BS AC and HS on invokona will add SS Hyponatremia: NA131 on replacement will monitor HTN: continue metoprolol 01/26/17- Vulvar abscess - Followed By ID, MRSA, contact isolation, Tefalor Q12 DM- BS controlled, A1c pending Hyponatremia- Na 131 today, on Na tab HTN- On metoprolol will add prn. Mariel Luque Jan 26, 2017 12:35
--- NOTE | 2017-01-26 12:49 | HHI.IDPN ---
Subjective Subjective Remarks pt is doing good no c/o Grew MRSA, Proteus both S to Bactrim Allergies: Coded Allergies: ipratropium (Unverified Allergy, Severe, MOUTH SWELLIN; ALLERGIC TO ALL NUTS, 01/24/17) latex (Unverified Allergy, Severe, CAN'T REMEMBER/SEVERE REACTION PER DOCTOR, 01/24/17) shellfish derived (Verified Allergy, Severe, Anaphylaxis, 01/24/17) lactose (Unverified Allergy, Mild, DIGESTION PROBLEMS, 01/24/17) penicillin G (Unverified Allergy, Mild, RASH, 01/24/17) iodine (Verified Allergy, Unknown, 01/24/17) Objective . Vital Signs Date Time Temp Pulse Resp B/P (MAP) Pulse Ox O2 Delivery O2 Flow Rate FiO2 01/26/17 12:25 98.4 66 22 129/64 (85) 97 01/26/17 08:38 97.5 74 24 136/83 (100) 97 01/26/17 05:45 97.9 74 20 184/90 (121) 97 01/26/17 01:36 97.8 72 18 165/86 (112) 97 01/25/17 23:01 98.2 75 18 153/90 (111) 96 01/25/17 14:23 97.5 61 16 120/60 (80) 93 . Laboratory Tests Test 01/24/17 16:35 01/25/17 10:33 01/26/17 08:50 White Blood Count 6.5 TH/MM3 4.9 TH/MM3 6.0 TH/MM3 Red Blood Count 4.82 MIL/MM3 4.69 MIL/MM3 5.15 MIL/MM3 Hemoglobin 11.1 GM/DL 10.9 GM/DL 12.1 GM/DL Hematocrit 34.7 % 33.8 % 36.9 % Mean Corpuscular Volume 71.9 FL 72.0 FL 71.7 FL Mean Corpuscular Hemoglobin 23.1 PG 23.2 PG 23.6 PG Mean Corpuscular Hemoglobin Concent 32.1 % 32.3 % 32.9 % Red Cell Distribution Width 17.8 % 18.0 % 17.6 % Platelet Count 255 TH/MM3 225 TH/MM3 247 TH/MM3 Mean Platelet Volume 7.6 FL 7.4 FL 7.4 FL Neutrophils (%) (Auto) 69.3 % 61.3 % Lymphocytes (%) (Auto) 18.2 % 23.4 % Monocytes (%) (Auto) 10.2 % 11.9 % Eosinophils (%) (Auto) 1.9 % 2.9 % Basophils (%) (Auto) 0.4 % 0.5 % Neutrophils # (Auto) 4.5 TH/MM3 3.0 TH/MM3 Lymphocytes # (Auto) 1.2 TH/MM3 1.2 TH/MM3 Monocytes # (Auto) 0.7 TH/MM3 0.6 TH/MM3 Eosinophils # (Auto) 0.1 TH/MM3 0.1 TH/MM3 Basophils # (Auto) 0.0 TH/MM3 0.0 TH/MM3 CBC Comment DIFF FINAL DIFF FINAL Differential Comment Laboratory Tests Test 01/24/17 16:35 01/25/17 10:33 01/26/17 08:50 Blood Urea Nitrogen 14 MG/DL 16 MG/DL 17 MG/DL Creatinine 0.83 MG/DL 0.79 MG/DL 0.76 MG/DL Random Glucose 98 MG/DL 141 MG/DL 82 MG/DL Total Protein 7.0 GM/DL Albumin 3.0 GM/DL Calcium Level 8.7 MG/DL 8.3 MG/DL 8.7 MG/DL Alkaline Phosphatase 102 U/L Aspartate Amino Transf (AST/SGOT) 19 U/L Alanine Aminotransferase (ALT/SGPT) 12 U/L Total Bilirubin 0.3 MG/DL Sodium Level 129 MEQ/L 131 MEQ/L 131 MEQ/L Potassium Level 4.7 MEQ/L 4.1 MEQ/L 3.9 MEQ/L Chloride Level 95 MEQ/L 98 MEQ/L 96 MEQ/L Carbon Dioxide Level 28.2 MEQ/L 26.8 MEQ/L 25.8 MEQ/L Anion Gap 6 MEQ/L 6 MEQ/L 9 MEQ/L Estimat Glomerular Filtration Rate 65 ML/MIN 69 ML/MIN 73 ML/MIN Lactic Acid Level 0.9 mmol/L 25-Hydroxy Vitamin D Total 50.5 ng/ML Free Thyroxine 1.31 NG/DL Free Triiodothyronine (T3) pg/dL 2.10 PG/ML Thyroid Stimulating Hormone 3rd Gen 1.250 uIU/ML Microbiology Date/Time Source Procedure Growth Status 01/24/17 16:40 Blood Peripheral Aerobic Blood Culture - Preliminary NO GROWTH IN 2 DAYS Resulted 01/24/17 16:40 Blood Peripheral Anaerobic Blood Culture - Preliminary NO GROWTH IN 2 DAYS Resulted 01/24/17 16:35 Blood Peripheral Aerobic Blood Culture - Preliminary NO GROWTH IN 2 DAYS Resulted 01/24/17 16:35 Blood Peripheral Anaerobic Blood Culture - Preliminary NO GROWTH IN 2 DAYS Resulted 01/24/17 16:30 Wound Other Gram Stain - Final Complete 01/24/17 16:30 Wound Culture - Final S. Aureus Mrsa Proteus Mirabilis Complete Physical Exam CONSTITUTIONAL/GENERAL: no apparent distress. TUBES/LINES/DRAINS: SKIN: No jaundice, rashes, or lesions. GASTROINTESTINAL: Abdomen soft, non-tender, nondistended. No hepato- splenomegaly, or palpable masses. No guarding. Bowel sounds present. GENITOURINARY: Without palpable bladder distension. R labia with minimal edema, no erythema or pain Minimal drainage MUSCULOSKELETAL: Extremities without clubbing, cyanosis, or edema. NEUROLOGICAL: Awake and alert. Motor and sensory grossly within normal limits. Follows commands. Clear speech . Moves all extremities. PSYCHIATRIC: No obvious anxiety/depression. no apparent hallucinations or other psychotic thought process. Assessment & Plan Remarks L labia abscess, MRSA and Proteus - also growing GNB in surface clx from unroofed abscess, but not in office clx ? contam. Multiple med prob Frail Advanced age chanfe abx to Bactrim DS 1 PO BID x7 days OK to dc home dw Dr Steven Otto,Cheryl Holden MD Jan 26, 2017 12:49
[2017-01-26] MEDS ORDERED: BACT800T5 PO (12:59)
[2017-01-26 14:16] LABS: HEMOGLOBIN A1a 1.4 %; HEMOGLOBIN A1b 0.9 %; HEMOGLOBIN Ao 84.9 %; HEMOGLOBIN LA1C 1.9 %; HEMOGLOBIN P3 3.9 %
--- NOTE | 2017-01-26 17:55 | HHI.PR ---
Subjective Remarks Pt is sleeping now Objective Vital Signs Date Time Temp Pulse Resp B/P (MAP) Pulse Ox O2 Delivery O2 Flow Rate FiO2 01/26/17 16:02 98.5 62 22 139/67 (91) 97 01/26/17 12:25 98.4 66 22 129/64 (85) 97 01/26/17 08:38 97.5 74 24 136/83 (100) 97 01/26/17 05:45 97.9 74 20 184/90 (121) 97 01/26/17 01:36 97.8 72 18 165/86 (112) 97 01/25/17 23:01 98.2 75 18 153/90 (111) 96 I/O 01/25/17 01/25/17 01/25/17 01/26/17 01/26/17 01/26/17 07:00 15:00 23:00 07:00 15:00 23:00 Intake Total 480 ml Balance 480 ml Intake Oral 480 ml # Voids 2 Result Diagram: 01/26/17 0850 01/26/17 0850 Other Results resting comfortably in bed..sleeping Assessment and Plan Problem List: (1) Vulvar abscess ICD Codes: N76.4 - Abscess of vulva Status: Acute Assessment and Plan Vulvar abscess with MRSA. ID suggested bactrim and I will order this. May go home tomorrow if tolerating Bactrim. Will d/c IV antibiotics tomorrow if doing well. Tate Harris MD Jan 26, 2017 17:55
[2017-01-26] MEDS: SULFAMETHOXAZOLE-TRIMETHOPRIM DS 800-160 MG TAB PO SCH (21:39)
[2017-01-27 03:30] VITALS: BP 133/62; PULSE 68; RESP 16; TEMP 97.7; O2SAT 97
[2017-01-27 04:00] VITALS: PULSE 75
[2017-01-27] MEDS: CEFTAROLINE INJ 600 MG in SODIUM CHLORIDE 0.9% INJ 100 ML IV SCH (05:01)
[2017-01-27 07:06] VITALS: PULSE 75
[2017-01-27 07:55] VITALS: BP 151/72; PULSE 73; RESP 22; TEMP 98.6; O2SAT 96
[2017-01-27] MEDS: SODIUM CHLORIDE 0.9% FLUSH 10 ML FLUSH IV FLUSH SCH (09:13)
[2017-01-27] MEDS: SODIUM CHLORIDE 1 GRAM TAB PO SCH (09:14)
[2017-01-27] MEDS: ASPIRIN 81 MG CHEW TAB CHEW SCH (09:14)
[2017-01-27] MEDS: MULTIVITAMIN TAB PO SCH (09:14)
[2017-01-27] MEDS: SULFAMETHOXAZOLE-TRIMETHOPRIM DS 800-160 MG TAB PO SCH (09:14)
[2017-01-27] MEDS: METOPROLOL TARTRATE 25 MG TAB PO SCH (09:18)
--- NOTE | 2017-01-27 11:07 | HHI.DS ---
Discharge Summary Admission Date Jan 24, 2017 at 18:05 Admitting Diagnosis Vulvar Abscess CBC/BMP: 01/26/17 0850 01/26/17 0850 Significant Findings Laboratory Tests Test 01/24/17 16:35 01/25/17 10:33 01/26/17 08:50 Hemoglobin 11.1 GM/DL (11.6-15.3) 10.9 GM/DL (11.6-15.3) Hematocrit 34.7 % (35.0-46.0) 33.8 % (35.0-46.0) Mean Corpuscular Volume 71.9 FL (80.0-100.0) 72.0 FL (80.0-100.0) 71.7 FL (80.0-100.0) Mean Corpuscular Hemoglobin 23.1 PG (27.0-34.0) 23.2 PG (27.0-34.0) 23.6 PG (27.0-34.0) Red Cell Distribution Width 17.8 % (11.6-17.2) 18.0 % (11.6-17.2) 17.6 % (11.6-17.2) Monocytes (%) (Auto) 10.2 % (0.0-8.0) 11.9 % (0.0-8.0) Albumin 3.0 GM/DL (3.4-5.0) Sodium Level 129 MEQ/L (136-145) 131 MEQ/L (136-145) 131 MEQ/L (136-145) Chloride Level 95 MEQ/L (98-107) 96 MEQ/L (98-107) Estimat Glomerular Filtration Rate 65 ML/MIN (>89) 69 ML/MIN (>89) 73 ML/MIN (>89) Random Glucose 141 MG/DL (74-106) Calcium Level 8.3 MG/DL (8.5-10.1) Free Triiodothyronine (T3) pg/dL 2.10 PG/ML (2.18-3.98) PE at Discharge GENERAL: Well-nourished, well-developed patient. SKIN: Warm and dry. HEAD: Normocephalic. EYES: No scleral icterus. No injection or drainage. NECK: Supple, trachea midline. No JVD or lymphadenopathy. CARDIOVASCULAR: Regular rate and rhythm without murmurs, gallops, or rubs. RESPIRATORY: Breath sounds equal bilaterally. No accessory muscle use. GASTROINTESTINAL: Abdomen soft, non-tender, nondistended. EXTREMITIES: No cyanosis, or edema. NEUROLOGICAL: Awake, alert, and oriented x 3. Non-focal. Labia erythematous but immproved Hospital Course pt admitted with vulvar abscess open and draining , MRSA cultured, ID and FLOW SPECIALIST consulted pt ultimately treated with bactrim ds vulva improved will dc home fu clyde xenia and myself julianne Discharge Disposition: [facility] Discharge Instructions DIET: Follow Instructions for: As Tolerated, No Restrictions Activities you can perform: Regular-No Restrictions New Medications: Sulfamethoxazole-Trimethoprim (Bactrim DS) 800-160 Mg Tab 1 TAB PO BID for Infection for 7 Days, #14 TAB 0 Refills Additional Information Inpatient Medications Aspirin (Aspirin Chew) 81 mg DAILY CHEW Last administered on 01/27/17 09:14; Start 01/25/17 at 09:00 Aztreonam 2000 mg/ Sodium Chloride 100 ml @ 200 mls/hr ONCE STAT IV Last administered on 01/24/17 17:59; Start 01/24/17 at 15:52; Stop 01/25/17 at 15 :01; Status DC Ceftaroline Fosamil 600 mg/ Sodium Chloride 100 ml @ 100 mls/hr Q12H IV Last administered on 01/27/17 05:01; Start 01/25/17 at 18:00 Levofloxacin/ Dextrose 150 ml @ 100 mls/hr Q24H IV Last administered on 09:00; Start 01/25/17 at 09:00; Stop 01/25/17 at 15:01; Status DC Metoprolol Tartrate (Lopressor) 25 mg BID PO Last administered on 01/27/17 09 :18; Start 01/24/17 at 21:00 Metronidazole 100 ml @ 100 mls/hr Q6H IV Last administered on 01/25/17 11:55 ; Start 01/24/17 at 23:00; Stop 01/25/17 at 15:01; Status DC Multivitamins (Theragran) 1 tab DAILY PO Last administered on 01/27/17 09:14 ; Start 01/25/17 at 09:00 Naloxone HCl (Narcan Inj) 0.4 mg UNSCH PRN IV PUSH SEE LABEL COMMENTS; Start 01/24/17 at 18:15 Patient Own Medication PT OWN MED: Canagliflozin (Invoka... DAILY PO ; Start at 09:00; Status Future Hold Sodium Chloride (NS Flush) 2 ml BID IV FLUSH Last administered on 01/27/17 09 :13; Start 01/24/17 at 21:00 Sodium Chloride (Sodium Chloride) 1 gm BID PO Last administered on 01/27/17 09:14; Start 01/24/17 at 21:00 Trimethoprim/ Sulfamethoxazole (Bactrim Ds 800-160 Mg) 1 tab Q12HR PO Last administered on 01/27/17 09:14; Start 01/26/17 at 21:00 Vancomycin HCl 1000 mg/Sodium Chloride 250 ml @ 250 mls/hr ONCE STAT IV Last administered on 01/24/17 17:30; Start 01/24/17 at 15:52; Stop 01/24/17 at 16 :51; Status DC Juan Ortiz DO Jan 27, 2017 11:07
[2017-01-27 11:45] VITALS: BP 107/64; PULSE 66; RESP 24; TEMP 98.3; O2SAT 96
== END 2017-01-27 14:16 | DRG 758 ==
LOC: NEPC 14:39 → NEDA 18:05 → NEPFCDU 20:03 → OBSVTOIN 01-25 15:08
PROVIDERS: ADMIT Family Medicine; ATTEND Family Medicine
DX: N76.4 Abscess of vulva (principal); E27.40 Unspecified adrenocortical insufficiency; F03.90 Unspecified dementia, unspecified severity, without behavioral disturbance, psychotic disturbance, mood disturbance, and anxiety; B95.62 Methicillin resistant Staphylococcus aureus infection as the cause of diseases classified elsewhere; I10 Essential (primary) hypertension; E11.9 Type 2 diabetes mellitus without complications; E87.1 Hypo-osmolality and hyponatremia; Z79.84 Long term (current) use of oral hypoglycemic drugs; I25.10 Atherosclerotic heart disease of native coronary artery without angina pectoris; Z95.5 Presence of coronary angioplasty implant and graft; R32 Unspecified urinary incontinence; J44.9 Chronic obstructive pulmonary disease, unspecified; Z85.038 Personal history of other malignant neoplasm of large intestine; Z86.73 Personal history of transient ischemic attack (TIA), and cerebral infarction without residual deficits; H91.90 Unspecified hearing loss, unspecified ear; Z79.82 Long term (current) use of aspirin; Z96.653 Presence of artificial knee joint, bilateral; Z96.643 Presence of artificial hip joint, bilateral; Z96.632 Presence of left artificial wrist joint; Z96.631 Presence of right artificial wrist joint
CPT/HCPCS: 80048; 80053; 82306; 83036; 83605; 84439; 84443; 84481; 85025; 85027; 86403; 87040; 87070; 87077; 87147; 87186; 96365; 96376; G0378; G8987-GP; G8988-GP; J0712; J1956; J3370; J7050

== ENCOUNTER 2017-10-27 16:42 | Inpatient (IN) ==
--- NOTE | 2017-10-27 17:44 | ED ---
HPI General Chief complaint: Recheck/Abnormal Lab/Rx Stated complaint: Left foot doctor sent Time Seen by Provider: 10/27/17 17:08 Source: patient, family and old records reviewed Mode of arrival: ambulatory Limitations: no limitations History of Present Illness HPI narrative: 87-year-old woman presents emergency department sent from her electric meter installer helper for evaluation and admission for diabetic foot wound. She saw her electric meter installer helper today. She has had a wound on her left foot for the past week or so. Worsening pain redness and swelling. Saw a electric meter installer helper today and states that it was probing to bone, was sent for admission, labs, IV antibiotics, MRI. No fevers. No nausea vomiting. No chest pain or trouble breathing. She otherwise had been feeling generally well and healthy. Is no aggravating or alleviating factors. Pain is confined to the foot and the toe, with no radiation up into theleg. Related Data Home Medications Medication Instructions Recorded Confirmed Unable to Obtain Home Meds 10/27/17 10/27/17 Allergies Allergy/AdvReac Type Severity Reaction Status Date / Time ipratropium Allergy Severe MOUTH Verified 10/27/17 17:39 SWELLIN; ALLERGIC TO ALL NUTS latex Allergy Severe CAN'T Verified 10/27/17 17:39 REMEMBER/SEVERE REACTION PER DOCTOR shellfish derived Allergy Severe Anaphylaxis Verified 10/27/17 17:39 lactose Allergy Mild DIGESTION Verified 10/27/17 17:39 PROBLEMS penicillin G Allergy Mild RASH Verified 10/27/17 17:39 iodine Allergy Unknown Anaphylaxis Verified 10/27/17 17:39 Review of Systems ROS: all other systems reviewed are negative [facility] Medical History Medical History Diabetes type 2, controlled (Acute) HTN (hypertension) (Acute) Rheumatoid arthritis (Acute) Surgical History Surgical History History of bilateral knee replacement (Acute) History of hip surgery (Acute) Social History Social History Smoking Status: Never smoker How Often Do You Have a Drink Containing Alcohol: Never Recent Out of Country Travel within the Last 8 Weeks: No Immunization History Tetanus Immunization: Unsure Hx Influenza Vaccine This Season: No Exam Narrative Exam Narrative: GENERAL: 87-year-old woman, well-appearing, nontoxic. SKIN: Focused skin assessment warm/dry. HEAD: Atraumatic. Normocephalic. EYES: Pupils equal and round. No scleral icterus. No injection or drainage. ENT: No nasal bleeding or discharge. Mucous membranes pink and moist. NECK: Trachea midline. No JVD. CARDIOVASCULAR: Regular rate and rhythm. No murmur appreciated. RESPIRATORY: No accessory muscle use. Clear to auscultation. Breath sounds equal bilaterally. GASTROINTESTINAL: Abdomen soft, non-tender, nondistended. Hepatic and splenic margins not palpable. MUSCULOSKELETAL: No obvious deformities. Left foot is erythematous and red especially about the dorsum up to about the midfoot. Small ulcer on the dorsum of the left third toe. Purulent drainage coming from the ulceration. NEUROLOGICAL: Awake and alert. No obvious cranial nerve deficits. Motor grossly within normal limits. Normal speech. PSYCHIATRIC: Appropriate mood and affect; insight and judgment normal. Course Initial Documented Vital Signs Temperature 97.3 F L 10/27/17 16:51 Pulse Rate 86 10/27/17 16:51 Respiratory Rate 17 10/27/17 16:51 Blood Pressure 143/71 H 10/27/17 16:51 Pulse Oximetry 97 10/27/17 16:51 Last Documented Vital Signs Temperature 97.3 F L 10/27/17 16:51 Pulse Rate 86 10/27/17 16:51 Respiratory Rate 17 10/27/17 16:51 Blood Pressure 143/71 H 10/27/17 16:51 Pulse Oximetry 97 10/27/17 16:51 Medical Decision Making [facility] Narrative Medical decision making narrative: 87-year-old woman with diabetic foot infection, reportedly probing to bone, sent by podiatry for admission IV antibiotics MRI. We will plan on admission to medicine, labs ordered, antibiotics ordered. Patient is penicillin allergic. MRI ordered. Spoke with Dr. Abad. Will consult on patient. Spoke with Dr. Eldridge. Will admit patient. Medical Screen Exam Complete: Yes Emergency Medical Condition: Yes Lab Data Result diagrams: 10/27/17 17:30 10/27/17 17:30 Lab Results 10/27/17 Range/Units 17:30 WBC 6.8 (4.0-11.0) th/mm3 RBC 5.31 H (4.00-5.30) mil/mm3 Hgb 14.1 (11.6-15.3) gm/dL Hct 42.2 (35.0-46.0) % MCV 79.5 L (80.0-100.0) fL MCH 26.6 L (27.0-34.0) pg MCHC 33.5 (32.0-36.0) % RDW 15.6 (11.6-17.2) % Plt Count 245 (150-450) th/mm3 MPV 7.8 (7.0-11.0) fL Neut % (Auto) 71.2 H (16.0-70.0) % Lymph % (Auto) 15.3 (9.0-44.0) % Pacific % (Auto) 11.2 H (0.0-8.0) % Eos % (Auto) 1.9 (0.0-4.0) % Baso % (Auto) 0.4 (0.0-2.0) % Neut # (Auto) 4.8 (1.8-7.7) th/mm3 Lymph # (Auto) 1.0 (1.0-4.8) th/mm3 [place] # (Auto) 0.8 (0.0-0.9) th/mm3 Eos # (Auto) 0.1 (0.0-0.4) th/mm3 Baso # (Auto) 0.0 (0.0-0.2) th/mm3 WBC Differential . Differential Comment Auto diff final Discharge Plan Discharge Disposition Patient Disposition: 30 Still Patient Physicians Team ED Provider: Amadeo Adams Rxs /Orders / Referrals /Forms Prescriptions: No Action Unable to Obtain Home Meds RF: 0 Discharge Interventions Interventions: Vital Signs Last Done: 10/27/17 16:51 Status ED Status: With Doctor
[2017-10-27] MEDS ORDERED: Vancomycin Inj 1 GM/200 ML PIGGYBACK IV.SIG SCH (18:00)
[2017-10-27 18:03] LABS: Baso % (Auto) 0.4 % (0.0-2.0); Eos # (Auto) 0.1 th/mm3 (0.0-0.4); Eos % (Auto) 1.9 % (0.0-4.0); Hematocrit 42.2 % (35.0-46.0); Hemoglobin 14.1 gm/dL (11.6-15.3); Lymph % (Auto) 15.3 % (9.0-44.0); Mean Corpuscular HGB Conc 33.5 % (32.0-36.0); Mean Corpuscular Hemoglobin 26.6 pg (27.0-34.0); Mean Corpuscular Volume 79.5 fL (80.0-100.0); Mean Platelet Volume 7.8 fL (7.0-11.0); Mono # (Auto) 0.8 th/mm3 (0.0-0.9); Mono % (Auto) 11.2 % (0.0-8.0); Neut # (Auto) 4.8 th/mm3 (1.8-7.7); Neut % (Auto) 71.2 % (16.0-70.0); Platelet Count 245 th/mm3 (150-450); Red Blood Count 5.31 mil/mm3 (4.00-5.30); Red Cell Distribution Width 15.6 % (11.6-17.2); White Blood Count 6.8 th/mm3 (4.0-11.0)
[2017-10-27] MEDS ORDERED: Vancomycin Consult Pharmacy OTHER PRN (18:20)
[2017-10-27] MEDS ORDERED: Dextrose 50% in Water 50 ML Vial IV.PUSH PRN (18:22)
[2017-10-27] MEDS ORDERED: Naloxone Inj 0.4 MG/ML Vial IV.PUSH PRN (18:23)
[2017-10-27] MEDS ORDERED: Morphine Sulfate Inj 2 MG/ML Vial IV.PUSH PRN (18:23)
[2017-10-27] MEDS ORDERED: Morphine Inj 4 MG/ML Vial IV.PUSH PRN ×2 (18:23)
[2017-10-27] MEDS ORDERED: Bisacodyl 10 MG Supp RECTAL PRN (18:24)
[2017-10-27] MEDS ORDERED: Vancomycin Consult Pharmacy 1 EACH OTHER SCH (18:30)
[2017-10-27 18:39] LABS: Erythrocyte Sedimentation Rate 25 mm/hr (0-30)
[2017-10-27 18:49] LABS: Albumin 3.5 g/dL (3.4-5.0); Anion Gap 10 meq/L (5-15); Aspartate Aminotransferase 28 U/L (15-37); Blood Urea Nitrogen 18 mg/dL (7-18); Carbon Dioxide 26.3 meq/L (21.0-32.0); Chloride 96 meq/L (98-107); Glomerular Filtration Rate 75 mL/min (>89); Glucose,Random 97 mg/dL (74-106); Potassium 4.3 meq/L (3.5-5.1); Sodium 132 meq/L (136-145)
[2017-10-27 18:52] LABS: Alanine Aminotransferase 19 U/L (10-53); Alkaline Phosphatase 120 U/L (45-117)
[2017-10-27 18:53] LABS: Bilirubin,Urine Negative (Negative); Clarity,Urine Clear (Clear); Color,Urine Yellow (Yellw/Straw); Glucose,Urine (UA) 500 or Greater mg/dL (Negative); Leukocyte Esterase,Urine Negative (Negative); Nitrite,Urine Negative (Negative); Specific Gravity,Urine 1.022 (1.002-1.035)
--- NOTE | 2017-10-27 19:09 | XR ---
EXAM DATE: 10/27/2017 6:31 PM EDT AGE/SEX: 87 years / Female INDICATIONS: Fever. CLINICAL DATA: This is the patient's initial encounter. Patient reports that signs and symptoms have been present for 1 day and indicates a pain score of 0/10. MEDICAL/SURGICAL HISTORY: None. None. COMPARISON: [facility] – [place], 04/14/2011. . FINDINGS: No lung consolidation. Minimal basilar atelectasis. Cardiomegaly. Tortuous aorta. No pneumothorax. CONCLUSION: Minimal basilar atelectasis or scarring. No effusion or pneumothorax. Electronically signed by: Juan Carlos Troy MD 10/27/2017 7:08 PM EDT
--- NOTE | 2017-10-27 19:58 | MR ---
EXAM DATE: 10/27/2017 7:53 PM EDT AGE/SEX: 87 years / Female INDICATIONS: Osteomyelitis. Second toe swelling for three weeks. CLINICAL DATA: This is the patient's initial encounter. Patient reports that signs and symptoms have been present for 3 weeks and indicates a pain score of 9/10. MEDICAL/SURGICAL HISTORY: Carcinoma, colon. Hypertension. Diabetes mellitus type II. Coronary artery stent. Knee sx, Wrist sx. COMPARISON: No prior exams available for comparison. TECHNIQUE: Multiplanar, multisequence MRI examination was performed without contrast and after th e intravenous administration of 6 ml Gadavist (gadobutrol) single exam dose. FINDINGS: There is marrow edema and marrow enhancement in the proximal and middle phalanx predominantly of the second toe with surrounding cellulitis, characteristic of osteomyelitis. No discrete or drainable abs cess. Edematous changes present in the forefoot. No other areas of osteomyelitis identified. CONCLUSION: 1. Osteomyelitis of the second toe, predominantly involving the proximal and middle phalanx. Angie ding cellulitis. Electronically signed by: Juan Carlos Troy MD 10/27/2017 7:57 PM EDT
[2017-10-27] MEDS ORDERED: Vancomycin Inj 1,500 MG in Sodium Chlor 0.9% Inj 500 ML IV.SIG ONE (20:00)
[2017-10-27] MEDS: Senna/Docusate Sodium 8.6/50 MG Tablet PO SCH (21:44)
[2017-10-27] MEDS: Sod Chloride 0.9% Inj 1,000 ML IV.CONT SCH (21:45)
[2017-10-27] MEDS: Insulin NovoLOG Aspart Correctional Sugar Inj SQ SCH (21:51)
[2017-10-27] MEDS ORDERED: Gadobutrol PF 7.5 MMOL/7.5 ML Vial (for RAD) IV.SIG ONE (22:18)
--- NOTE | 2017-10-27 22:31 | MP ---
cc: Mer Waterman DPM DATE OF OPERATION: 10/27/2017 REASON FOR CONSULTATION: Left second digit osteomyelitis. HISTORY OF PRESENT ILLNESS: The patient is an 87-year-old female who was seen by Dr. Hay on 10/27/2017 for a left foot wound which demonstrated probing and was sent to the ER for admission. Denies nausea, vomiting, fever, diarrhea or chills. REVIEW OF SYSTEMS: Negative as per HPI. PAST MEDICAL HISTORY: DM, HTN, RA. PAST SURGICAL HISTORY: Bilateral knees, history of hip surgery. SOCIAL HISTORY: Denies smoking, alcohol or illicit drugs. PHYSICAL EXAMINATION: Left foot is erythematous, red. The left dorsal PIP joint is ulcerated, probes to bone. There is some forefoot erythema. LABORATORY DATA: WBC 6.8, RBC 5.31, H and H 14.1 and 42.2. ESR 25. Left foot MRI which indicates osteomyelitis of the left second digit involving the proximal and middle phalanx of the left foot . ASSESSMENT: 1. Diabetes mellitus. 2. Left second digit osteomyelitis. PLAN: My plan is to complete a blood flow study with this patient and discuss with the patient and her family members consideration for a left second digit amputation versus IV antibiotics. We will possibly plan for surgical intervention of the second digit amputation on 10/29/2017, but we will obviously discuss this with both the patient and her family in detail on 10/28/2017. Mer Waterman DPM SR/lashanda , 09:52 PM , 09:59 PM
--- NOTE | 2017-10-27 23:30 | P.HPIM ---
History of Present Illness Service: [facility] . Primary Care Physician: Dr. Juan Ortiz Chief Complaint: Sent by podiatry for suspected left foot osteomyelitis History of Present Illness: Ms. Caballero is an 87 year-old female with type 2 diabetes mellitus, hypertension, and rheumatoid arthritis who was sent to the ER following an office visit with Dr. Hay, mottler machine feeder, for evaluation of suspected osteomyelitis. Left foot MRI performed in the ER shows osteomyelitis of the left second toe involving the proximal and middle phalanx with surrounding cellulitis. The patient was initially admitted to [facility] as there was some confusion or misinformation regarding the patient's primary care physician (who is actually Dr. Ortiz). I placed a call to Dr. Ortiz to notify him of the patient's admission. He states he will assume care in the morning. I saw the patient in her hospital room. She is complaining of pain "all over". She was medicated for pain immediately prior to my arrival and, therefore, the medication has not had time to be effective. She will alert her nurse if it is not. The wound on her left foot has been present for the past week and has developed worsening erythema and edema. The patient denies any fevers, chills, chest pain, shortness of breath, nausea, vomiting, or diarrhea. . Inpatient Certification: I certify that the inpatient services were ordered in accordance with Medicare regulations governing the order. This includes certification that hospital inpatient services are reasonable and necessary and in the case of services not specified as inpatient-only under 42 CFR 419.22(n), that they are appropriately provided as inpatient services in accordance to with the 2-midnight benchmark under 43 CFR 412.3(e) Estimated Total Length of Stay (Days): 5 Plans for Post Hospital Care: Not yet determined Review of Systems All other systems reviewed negative except as stated in HPI PMFSH - History History Provided By: Patient - Medical History Medical History: Medical History (Last Reviewed 10/27/17 @ 23:06 by MAXWELL Mathew) Diabetes type 2, controlled HTN (hypertension) Rheumatoid arthritis - Surgical History Surgical History: Surgical History (Last Reviewed 10/27/17 @ 23:27 by MAXWELL Mathew) History of bilateral knee replacement History of hip surgery - Family History Family History: Family History (Last Updated 10/27/17 @ 23:24 by MAXWELL Mathew) Other Family history unobtainable - Tobacco History Second Hand Smoke Exposure: No Smoking Status: Never smoker - Alcohol History How Often Do You Have a Drink Containing Alcohol: Never - Substance Use History Substance History: No History of Abuse - Travel History Recent Travel Out of the Country Within the Last 8 Weeks: No - Immunization History Tetanus Immunization: Unsure Hx Influenza Vaccine This Season: Yes Medications and Allergies Active Medications: Active Medications Acetaminophen (Tylenol) 650 mg PO Q6H PRN PRN Reason: PAIN SCALE 1 TO 2 Hydrocodone Bitart/Acetaminophen (Barnett 5/325) 1 tab PO Q4H PRN PRN Reason: PAIN SCALE 3 TO 5 Hydrocodone Bitart/Acetaminophen (Barnett 10/325) 1 tab PO Q4H PRN PRN Reason: PAIN SCALE 6 TO 10 Last Admin: 10/27/17 21:12 Dose: 1 tab Al Hydroxide/Mg Hydroxide (Milk Of Magnesia Liq) 30 ml PO Q12H PRN PRN Reason: Mild Constipation Bisacodyl (Dulcolax Supp) 10 mg RECTAL DAILY PRN PRN Reason: SEVERE CONSITIPATION Clonidine HCl (Catapres) 0.1 mg PO Q6H PRN PRN Reason: HYPERTENSION Dextrose (D50w Vial) 50 ml IV.PUSH UNSCH PRN PRN Reason: PER HYPOGLYCEMIA PROTOCOL Glucagon (Glucagon Inj) 1 mg OTHER PRN PRN PRN Reason: for Hypoglycemia Protocol Levofloxacin/Dextrose (Levaquin 750 Mg Premix Inj) 150 mls @ 100 mls/hr IV.SIG Q24H [facility] Metronidazole/Sodium Chloride (Flagyl 500 Mg Inj) 100 mls @ 100 mls/hr IV.SIG Q8H [facility] Pharmacy Profile Note (Vancomycin Consult Pharmacy) 0 mls @ 0 mls/hr OTHER UNSCH [facility] Sodium Chloride (Ns Inj) 1,000 mls @ 75 mls/hr IV.CONT .[id number] [facility] Last Admin: 10/27/17 21:45 Dose: Not Given Insulin Aspart (Novolog Insulin Correctional Sugar Inj) 0 unit SQ ACHS AND 3AM [facility]; Protocol Last Admin: 10/27/17 21:51 Dose: Not Given Lactulose (Lactulose Liq) 30 ml PO DAILY PRN PRN Reason: SEVERE CONSITIPATION Morphine Sulfate (Morphine Inj) 2 mg IV.PUSH Q3H PRN PRN Reason: PAIN 3-5; IF UABLE TO TAKE PO Morphine Sulfate (Morphine Inj) 4 mg IV.PUSH Q3H PRN PRN Reason: PAIN 6-10;IF UNABLE TO TAKE PO Morphine Sulfate (Morphine Inj) 4 mg IV.PUSH Q3H PRN PRN Reason: BREAKTHROUGH PAIN Naloxone HCl (Narcan Inj) 0.4 mg IV.PUSH UNSCH PRN PRN Reason: SEE LABEL COMMENTS Ondansetron HCl (Zofran Inj) 4 mg IV.PUSH Q6H PRN PRN Reason: NAUSEA OR VOMITING Senna/Docusate Sodium (Mariia-Colace) 1 tab PO BID [facility] Last Admin: 10/27/17 21:44 Dose: Not Given Sennosides (Senokot) 17.2 mg PO Q12H PRN PRN Reason: Moderate Constipation Allergies Allergy/AdvReac Type Severity Reaction Status Date / Time ipratropium Allergy Severe MOUTH Verified 10/27/17 17:39 SWELLIN; ALLERGIC TO ALL NUTS latex Allergy Severe CAN'T Verified 10/27/17 17:39 REMEMBER/SEVERE REACTION PER DOCTOR shellfish derived Allergy Severe Anaphylaxis Verified 10/27/17 17:39 lactose Allergy Mild DIGESTION Verified 10/27/17 17:39 PROBLEMS penicillin G Allergy Mild RASH Verified 10/27/17 17:39 iodine Allergy Unknown Anaphylaxis Verified 10/27/17 17:39 Home Medications Medication Instructions Recorded Confirmed Type Jardiance 10 mg DAILY 10/27/17 10/27/17 History Vitamin C 1,000 mg DAILY 10/27/17 10/27/17 History Vitamin D3 Complete 2,000 mcg BID 10/27/17 10/27/17 History aspirin 8 mg DAILY 10/27/17 10/27/17 History metoprolol tartrate 12.5 mg HS 10/27/17 10/27/17 History multivitamin DAILY 10/27/17 History sodium chloride 1 gm BID 10/27/17 10/27/17 History thyroid (pork) 30 mg BID 10/27/17 10/27/17 History Exam Vital signs: Vital Signs 10/27/17 16:51 Temperature 97.3 F L Pulse Rate 86 Respiratory Rate 17 Blood Pressure 143/71 H Pulse Oximetry 97 Intake & Output 10/27/17 10/27/17 10/28/17 06:59 18:59 06:59 Intake Total 150 / 150 Balance 150 / 150 Weight 61.235 kg 58.2 kg Intake: IV 150 / 150 Levaquin 750 mg Premix Inj 150 150 / 150 ML @ 100 mls/hr IV.SIG ONCE ONE Rx#:[id number] Other: Weight On Admission 58.2 kg Narrative: GENERAL: This is a well-nourished, well-developed elderly female patient, in no apparent distress. SKIN: Left second toe pink with small yellow area of erosion on middle phalanx. HEAD: Atraumatic. Normocephalic. EYES: No scleral icterus. No injection or drainage. ENT: Nose without bleeding, purulent drainage. NECK: Trachea midline. No JVD. CARDIOVASCULAR: Regular rate and rhythm without murmurs, gallops, or rubs. RESPIRATORY: Breath sounds diminished at bases but equal bilaterally. No wheezes , rales, or rhonchi. GASTROINTESTINAL: Abdomen soft, non-tender, nondistended. No guarding. MUSCULOSKELETAL: Extremities without clubbing, cyanosis, or edema. No calf tenderness. NEUROLOGICAL: Awake and alert. Normal speech. . Results - Labs CBC & Chem 7: 10/27/17 17:30 10/27/17 17:30 Labs: Short CBC 10/27/17 Range/Units 17:30 WBC 6.8 (4.0-11.0) th/mm3 Hgb 14.1 (11.6-15.3) gm/dL Hct 42.2 (35.0-46.0) % Plt Count 245 (150-450) th/mm3 BMP 10/27/17 17:30 Sodium 132 L Potassium 4.3 Chloride 96 L Carbon Dioxide 26.3 BUN 18 Creatinine 0.74 Calcium 9.0 Liver Function 10/27/17 Range/Units 17:30 Total Bilirubin 0.4 (0.2-1.0) mg/dL AST 28 (15-37) U/L ALT 19 (10-53) U/L Alkaline Phosphatase 120 H (45-117) U/L Albumin 3.5 (3.4-5.0) g/dL Urine 10/27/17 Range/Units 18:15 Urine Color Yellow (Yellw/Straw) Urine Clarity Clear (Clear) Urine pH 5.0 (5.0-8.5) Ur Specific [place] 1.022 (1.002-1.035) Urine Protein Negative (Neg-Trace) mg/dL Urine Glucose (UA) 500 or greater (Negative) mg/dL - Imaging Impressions Foot MRI 10/27/17 17:28 CONCLUSION: 1. Osteomyelitis of the second toe, predominantly involving the proximal and middle phalanx. Surrounding cellulitis. Chest X-Ray 10/27/17 17:30 CONCLUSION: Minimal basilar atelectasis or scarring. No effusion or pneumothorax. Caprini VTE Risk Assessment Caprini VTE Risk Assessment: Moderate/High Risk (score >= 2) Caprini Risk Assessment Model: Point Value = 1 Point Value = 2 Point Value = 3 Point Value = 5 Age 41-60 Minor surgery BMI > 25 kg/m2 Swollen legs Varicose veins or History of unexplained or recurrent spontaneous Oral contraceptives or hormone replacement Sepsis (< 1 month) Serious lung disease, including pneumonia (< 1 month) Abnormal pulmonary function Acute myocardial infarction Congestive heart failure (< 1 month) History of inflammatory bowel disease Medical patient at bed rest Age 61-74 Arthroscopic surgery Major open surgery (> 45 min) Laparoscopic surgery (> 45 min) Malignancy Confined to bed (> 72 hours) Immobilizing plaster cast Central venous access Age >= 75 History of VTE Family history of VTE Factor V Leiden Prothrombin [id number] Lupus anticoagulant Anticardiolipin antibodies Elevated serum homocysteine Heparin-induced thrombocytopenia Other congenital or acquired thrombophilia Stroke (< 1 month) Elective arthroplasty Hip, pelvis, or leg fracture Acute spinal cord injury (< 1 month) Prophylaxis Regimen: Total Risk Factor Score Risk Level Prophylaxis Regimen 0-1 Low Early ambulation 2 Moderate Order ONE of the following: *Sequential Compression Device (SCD) *Heparin 5000 units SQ BID 3-4 Higher Order ONE of the following medications: *Heparin 5000 units SQ TID *Enoxaparin/Lovenox 40 mg SQ daily (WT < 150 kg, CrCl > 30 mL/min) *Enoxaparin/Lovenox 30 mg SQ daily (WT < 150 kg, CrCl > 10-29 mL/min) *Enoxaparin/Lovenox 30 mg SQ BID (WT < 150 kg, CrCl > 30 mL/min) AND/OR *Sequential Compression Device (SCD) 5 or more Highest Order ONE of the following medications: *Heparin 5000 units SQ TID (Preferred with Epidurals) *Enoxaparin/Lovenox 40 mg SQ daily (WT < 150 kg, CrCl > 30 mL/min) *Enoxaparin/Lovenox 30 mg SQ daily (WT < 150 kg, CrCl > 10-29 mL/min) *Enoxaparin/Lovenox 30 mg SQ BID (WT < 150 kg, CrCl > 30 mL/min) AND *Sequential Compression Device (SCD) Assessment and Plan - Plan Ms. Caballero is an 87 year-old female with type 2 diabetes mellitus, hypertension, and rheumatoid arthritis who was sent to the ER following an office visit with Dr. Hay, mottler machine feeder, for evaluation of suspected osteomyelitis. Left foot MRI performed in the ER shows osteomyelitis of the left second toe involving the proximal and middle phalanx with surrounding cellulitis. The patient was initially admitted to [facility] as there was some confusion or misinformation regarding the patient's primary care physician (who is actually Dr. Ortiz). Left second toe osteomyelitis and cellulitis -Antibiotics: IV Levaquin, Metronidazole, and Vancomycin -Podiatry consulted - patient seen by Dr. Olivia, appreciate recommendations - plans to discuss surgical options with family tomorrow -Analgesia: As needed Barnett 5/325-10/325 p.o. per pain scale and as needed IV morphine for breakthrough pain and per pain scale if unable to take oral medications - prn bowel regimen ordered for constipation Type 2 Diabetes Mellitus -We will hold home Jardiance for now -Accu-Cheks before meals and at bedtime with low-dose NovoLog sliding scale coverage -PRN Hypoglycemia protocol -Monitor trends and blood glucose readings and adjust treatments as indicated Hypothyroidism -Continue home [place] Thyroid -check TSH in a.m., follow results Hyponatremia, chronic -Sodium 132 on admission, appears stable when compared to prior labs -Continue home sodium supplementation -Monitor labs DVT prophylaxis - SCDs Care will transfer to Dr. Ortiz 10/28 in a.m. - I have called the admitting office to change the EMR to reflect Dr. Ortiz as the PCP. Discussed Condition With: Dr. Loredo, Dr. Ortiz, patient, and RN H&P: Quality - VTE Deep Vein Thrombosis/Pulmonary Embolism Present on Admission: No
[2017-10-28] MEDS: Metoprolol Tartrate 25 MG Tablet PO SCH ×2 (01:19→20:37)
[2017-10-28] MEDS: Insulin NovoLOG Aspart Correctional Sugar Inj SQ SCH ×5 (03:05→20:38)
[2017-10-28 05:18] LABS: Baso % (Auto) 0.4 % (0.0-2.0); Eos # (Auto) 0.1 th/mm3 (0.0-0.4); Eos % (Auto) 1.2 % (0.0-4.0); Hematocrit 38.6 % (35.0-46.0); Hemoglobin 12.6 gm/dL (11.6-15.3); Lymph # (Auto) 0.8 th/mm3 (1.0-4.8); Lymph % (Auto) 13.3 % (9.0-44.0); Mean Corpuscular HGB Conc 32.5 % (32.0-36.0); Mean Corpuscular Volume 79.8 fL (80.0-100.0); Mean Platelet Volume 7.5 fL (7.0-11.0); Mono # (Auto) 0.6 th/mm3 (0.0-0.9); Mono % (Auto) 9.7 % (0.0-8.0); Neut # (Auto) 4.4 th/mm3 (1.8-7.7); Neut % (Auto) 75.4 % (16.0-70.0); Platelet Count 222 th/mm3 (150-450); Red Blood Count 4.84 mil/mm3 (4.00-5.30); Red Cell Distribution Width 15.1 % (11.6-17.2); White Blood Count 5.8 th/mm3 (4.0-11.0)
[2017-10-28 05:22] LABS: INR 1.2 Ratio; Prothrombin Time 12.5 sec (9.8-11.6)
[2017-10-28 05:42] LABS: Aspartate Aminotransferase 18 U/L (15-37); Chloride 96 meq/L (98-107); Glomerular Filtration Rate Greater Than 89 mL/min (>89); Glucose,Random 99 mg/dL (74-106); Phosphorus 3.1 mg/dL (2.5-4.9); Potassium 3.9 meq/L (3.5-5.1); Sodium 135 meq/L (136-145)
[2017-10-28 05:51] LABS: Alanine Aminotransferase 14 U/L (10-53); Albumin 2.9 g/dL (3.4-5.0); Alkaline Phosphatase 102 U/L (45-117); Anion Gap 13 meq/L (5-15); Blood Urea Nitrogen 12 mg/dL (7-18); Calcium 8.1 mg/dL (8.5-10.1); Carbon Dioxide 25.9 meq/L (21.0-32.0); Magnesium 1.6 mg/dL (1.5-2.5); Thyroid Stimulating Hormone 0.909 uIU/mL (0.358-3.740); Total Protein 7.2 g/dL (6.4-8.2)
[2017-10-28] MEDS: Sod Chloride 0.9% Inj 1,000 ML IV.CONT SCH ×2 (07:50→21:35)
[2017-10-28] MEDS: Ascorbic Acid 500 MG Tablet PO SCH (08:01)
[2017-10-28] MEDS: Sodium Chloride 1 GM Tablet PO SCH ×2 (08:01→20:37)
[2017-10-28] MEDS: Senna/Docusate Sodium 8.6/50 MG Tablet PO SCH ×2 (08:01→20:37)
--- NOTE | 2017-10-28 10:53 | P.HPFP ---
History of Present Illness Primary Care Physician: Juan Ortiz DO Chief Complaint: Sent by podiatry for suspected left foot osteomyelitis History of Present Illness: Ms. Caballero is an 87 year-old female with type 2 diabetes mellitus, hypertension, and rheumatoid arthritis who was sent to the ER following an office visit with Dr. 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 Left foot MRI performed in the ER shows osteomyelitis of the left second toe involving the proximal and middle phalanx with surrounding cellulitis. The patient was initially admitted to [facility] as there was some confusion or misinformation regarding the patient's primary care physician (who is actually Dr. Ortiz). I placed a call to Dr. Ortiz to notify him of the patient's admission. He states he will assume care in the morning. I saw the patient in her hospital room. She is complaining of pain "all over". She was medicated for pain immediately prior to my arrival and, therefore, the medication has not had time to be effective. She will alert her nurse if it is not. The wound on her left foot has been present for the past week and has developed worsening erythema and edema. The patient denies any fevers, chills, chest pain, shortness of breath, nausea, vomiting, or diarrhea. . - Diagnosis (1) Type 2 diabetes mellitus (2) Hypertension associated with diabetes (3) Hypothyroid Inpatient Certification: I certify that the inpatient services were ordered in accordance with Medicare regulations governing the order. This includes certification that hospital inpatient services are reasonable and necessary and in the case of services not specified as inpatient-only under 42 CFR 419.22(n), that they are appropriately provided as inpatient services in accordance to with the 2-midnight benchmark under 43 CFR 412.3(e) Estimated Total Length of Stay (Days): 5 Plans for Post Hospital Care: Not yet determined Review of Systems Constitutional: Reports weakness Eyes: Denies discharge Ears, Nose, Mouth, and Throat: Denies abnormal hearing, Denies dizziness Cardiovascular: Denies chest pain, Denies excessive sweating Respiratory: Denies chest congestion, Denies cough, Denies pain on inspiration Gastrointestinal: Denies abdominal pain, Denies black, tarry stools Genitourinary: Denies difficulty urinating, Denies painful urination Musculoskeletal: Reports muscle weakness, Reports other (reddness and pain left foot) Skin/Breast: Reports new lesions Neurologic: Reports sensory deficit, Reports weakness Psychiatric: Denies anxiety Endocrine: Denies cold intolerance Hematologic/Lymphatic: Denies easy bleeding Allergic/Immunologic: Denies GI upset with certain foods PMFSH - History History Provided By: Patient - Medical / Surgical Hx Neg / Unobtainable Medical Problems Denied: Yes - Medical History Medical History: Medical History (Last Reviewed 10/28/17 @ 10:45 by Ricky Venegas) Diabetes type 2, controlled HTN (hypertension) Rheumatoid arthritis - Surgical History Surgical History: Surgical History (Last Reviewed 10/28/17 @ 10:45 by Ricky Venegas) History of bilateral knee replacement History of hip surgery - Family History Family History: Family History (Last Reviewed 10/28/17 @ 10:45 by Ricky Venegas) Other Family history unobtainable - Tobacco History Second Hand Smoke Exposure: No Tobacco Use In Past 30 Days: No Smoking Status: Never smoker - Alcohol History How Often Do You Have a Drink Containing Alcohol: Never - Substance Use History Substance History: No History of Abuse - Travel History History of Recent Travel: No Recent Travel in the [place] Within the Last 8 Weeks: No Recent Travel Out of the Country Within the Last 8 Weeks: No - Immunization History Tetanus Immunization: Unsure Hx Influenza Vaccine This Season: Yes Medications and Allergies Active Medications: Active Medications Acetaminophen (Tylenol) 650 mg PO Q6H PRN PRN Reason: PAIN SCALE 1 TO 2 Hydrocodone Bitart/Acetaminophen ([place] 5/325) 1 tab PO Q4H PRN PRN Reason: PAIN SCALE 3 TO 5 Hydrocodone Bitart/Acetaminophen ([place] 10/325) 1 tab PO Q4H PRN PRN Reason: PAIN SCALE 6 TO 10 Last Admin: 10/27/17 21:12 Dose: 1 tab Al Hydroxide/Mg Hydroxide (Milk Of Magnesia Liq) 30 ml PO Q12H PRN PRN Reason: Mild Constipation Ascorbic Acid (Vitamin C) 1,000 mg PO DAILY [facility] Last Admin: 10/28/17 08:01 Dose: 1,000 mg Bisacodyl (Dulcolax Supp) 10 mg RECTAL DAILY PRN PRN Reason: SEVERE CONSITIPATION Clonidine HCl (Catapres) 0.1 mg PO Q6H PRN PRN Reason: HYPERTENSION Last Admin: 10/28/17 07:54 Dose: 0.1 mg Dextrose (D50w Vial) 50 ml IV.PUSH UNSCH PRN PRN Reason: PER HYPOGLYCEMIA PROTOCOL Glucagon (Glucagon Inj) 1 mg OTHER PRN PRN PRN Reason: for Hypoglycemia Protocol Levofloxacin/Dextrose (Levaquin 750 Mg Premix Inj) 150 mls @ 100 mls/hr IV.SIG Q24H [facility] Metronidazole/Sodium Chloride (Flagyl 500 Mg Inj) 100 mls @ 100 mls/hr IV.SIG Q8H [facility] Last Admin: 10/28/17 09:34 Dose: 100 mls/hr Pharmacy Profile Note (Vancomycin Consult Pharmacy) 0 mls @ 0 mls/hr OTHER UNSCH [facility] Sodium Chloride (Ns Inj) 1,000 mls @ 75 mls/hr IV.CONT .[id number] [facility] Last Admin: 10/28/17 07:50 Dose: 75 mls/hr Vancomycin HCl 1,000 mg/ (Sodium Chloride) 250 mls @ 250 mls/hr IV.SIG Q24H [facility] Insulin Aspart (Novolog Insulin Correctional Sugar Inj) 0 unit SQ ACHS AND 3AM [facility]; Protocol Last Admin: 10/28/17 08:01 Dose: Not Given Lactulose (Lactulose Liq) 30 ml PO DAILY PRN PRN Reason: SEVERE CONSITIPATION Metoprolol Tartrate (Lopressor) 12.5 mg PO HS [facility] Last Admin: 10/28/17 01:19 Dose: 12.5 mg Miscellaneous Information ([facility] Ordered Lab Info) 0 each OTHER ONCE ONE Stop: 10/30/17 21:46 Morphine Sulfate (Morphine Inj) 2 mg IV.PUSH Q3H PRN PRN Reason: PAIN 3-5; IF UABLE TO TAKE PO Morphine Sulfate (Morphine Inj) 4 mg IV.PUSH Q3H PRN PRN Reason: PAIN 6-10;IF UNABLE TO TAKE PO Morphine Sulfate (Morphine Inj) 4 mg IV.PUSH Q3H PRN PRN Reason: BREAKTHROUGH PAIN Naloxone HCl (Narcan Inj) 0.4 mg IV.PUSH UNSCH PRN PRN Reason: SEE LABEL COMMENTS Ondansetron HCl (Zofran Inj) 4 mg IV.PUSH Q6H PRN PRN Reason: NAUSEA OR VOMITING Senna/Docusate Sodium (Mariia-Colace) 1 tab PO BID [facility] Last Admin: 10/28/17 08:01 Dose: Not Given Sennosides (Senokot) 17.2 mg PO Q12H PRN PRN Reason: Moderate Constipation Sodium Chloride (Sodium Chloride) 1 gm PO BID [facility] Last Admin: 10/28/17 08:01 Dose: 1 gm Thyroid ([place] Thyroid) 30 mg PO BID [facility] Last Admin: 10/28/17 08:01 Dose: 30 mg Vitamin D (Vitamin D3) 2,000 unit PO BID [facility] Last Admin: 10/28/17 08:01 Dose: 2,000 unit Allergies Allergy/AdvReac Type Severity Reaction Status Date / Time ipratropium Allergy Severe MOUTH Verified 10/27/17 17:39 SWELLIN; ALLERGIC TO ALL NUTS latex Allergy Severe CAN'T Verified 10/27/17 17:39 REMEMBER/SEVERE REACTION PER DOCTOR shellfish derived Allergy Severe Anaphylaxis Verified 10/27/17 17:39 lactose Allergy Mild DIGESTION Verified 10/27/17 17:39 PROBLEMS penicillin G Allergy Mild RASH Verified 10/27/17 17:39 iodine Allergy Unknown Anaphylaxis Verified 10/27/17 17:39 Home Medications Medication Instructions Recorded Confirmed Type Jardiance 10 mg DAILY 10/27/17 10/27/17 History Vitamin C 1,000 mg DAILY 10/27/17 10/27/17 History Vitamin D3 Complete 2,000 mcg BID 10/27/17 10/27/17 History aspirin 8 mg DAILY 10/27/17 10/27/17 History metoprolol tartrate 12.5 mg HS 10/27/17 10/27/17 History multivitamin DAILY 10/27/17 History sodium chloride 1 gm BID 10/27/17 10/27/17 History thyroid (pork) 30 mg BID 10/27/17 10/27/17 History Exam Vital signs: Vital Signs 10/27/17 16:51 10/27/17 20:00 10/28/17 00:00 Temperature 97.3 F L 98.1 F 97.5 F L Pulse Rate 86 79 72 Respiratory Rate 17 20 20 Blood Pressure 143/71 H 144/82 H 104/59 L Pulse Oximetry 97 90 L 97 10/28/17 04:00 Temperature 97.4 F L Pulse Rate 76 Respiratory Rate 20 Blood Pressure 142/64 H Pulse Oximetry 94 L Intake & Output 10/27/17 10/28/17 10/28/17 18:59 06:59 18:59 Intake Total 1005 / 1005 Output Total 450 / 450 Balance 555 / 555 Weight 61.235 kg 58.2 kg Intake: IV 765 / 765 Levaquin 750 mg Premix Inj 150 150 / 150 ML @ 100 mls/hr IV.SIG ONCE ONE Rx#:[id number] Vancomycin Inj 1,500 MG In NS 515 / 515 Inj 500 ML @ 250 mls/hr IV.SIG ONCE ONE Rx#:[id number] Flagyl 500 MG Inj 100 ML @ 100 100 / 100 mls/hr IV.SIG Q8H [facility] Rx#: [id number] Oral 240 / 240 Output: Urine 450 / 450 Other: Date of Last Bowel Movement 10/27/17 Weight On Admission 58.2 kg - Constitutional no acute distress - Routine HEENT Exam Head: Present: normocephalic, atraumatic Eye: Present: PERRL ENT: Present: mucous membranes moist - Routine Neck Exam Present: supple, full ROM - Routine Respiratory Exam Present: CTA bilaterally - Routine Cardiovascular Exam Present: RRR, S1, S2 - Routine Abdominal Exam Present: soft, normoactive bowel sounds - Routine Extremities Exam Comments: dressing intact left foot. - Routine Skin Exam Present: intact - Routine Neurological Exam Present: alert, oriented X3 Results - Labs Result diagrams: 10/28/17 04:13 10/28/17 04:13 Abnormal lab results 10/27/17 10/27/17 10/28/17 Range/Units 17:30 17:30 04:13 RBC 5.31 H (4.00-5.30) mil/mm3 MCV 79.5 L 79.8 L (80.0-100.0) fL MCH 26.6 L 26.0 L (27.0-34.0) pg Neut % (Auto) 71.2 H 75.4 H (16.0-70.0) % [place] % (Auto) 11.2 H 9.7 H (0.0-8.0) % Lymph # (Auto) 0.8 L (1.0-4.8) th/mm3 PT (9.8-11.6) sec Sodium 132 L (136-145) meq/L Chloride 96 L (98-107) meq/L Estimated GFR 75 L (>89) mL/min Calcium (8.5-10.1) mg/dL Alkaline Phosphatase 120 H (45-117) U/L Albumin (3.4-5.0) g/dL 10/28/17 10/28/17 Range/Units 04:13 04:13 RBC (4.00-5.30) mil/mm3 MCV (80.0-100.0) fL MCH (27.0-34.0) pg Neut % (Auto) (16.0-70.0) % [place] % (Auto) (0.0-8.0) % Lymph # (Auto) (1.0-4.8) th/mm3 PT 12.5 H (9.8-11.6) sec Sodium 135 L (136-145) meq/L Chloride 96 L (98-107) meq/L Estimated GFR (>89) mL/min Calcium 8.1 L D (8.5-10.1) mg/dL Alkaline Phosphatase (45-117) U/L Albumin 2.9 L D (3.4-5.0) g/dL Short CBC 10/27/17 10/28/17 Range/Units 17:30 04:13 WBC 6.8 5.8 (4.0-11.0) th/mm3 Hgb 14.1 12.6 (11.6-15.3) gm/dL Hct 42.2 38.6 (35.0-46.0) % Plt Count 245 222 (150-450) th/mm3 BMP 10/27/17 10/28/17 17:30 04:13 Sodium 132 L 135 L Potassium 4.3 3.9 Chloride 96 L 96 L Carbon Dioxide 26.3 25.9 BUN 18 12 Creatinine 0.74 0.58 Calcium 9.0 8.1 L D Liver Function 10/27/17 10/28/17 Range/Units 17:30 04:13 Total Bilirubin 0.4 0.5 (0.2-1.0) mg/dL AST 28 18 (15-37) U/L ALT 19 14 (10-53) U/L Alkaline Phosphatase 120 H 102 (45-117) U/L Albumin 3.5 2.9 L D (3.4-5.0) g/dL Urine 10/27/17 Range/Units 18:15 Urine Color Yellow (Yellw/Straw) Urine Clarity Clear (Clear) Urine pH 5.0 (5.0-8.5) Ur Specific Leon 1.022 (1.002-1.035) Urine Protein Negative (Neg-Trace) mg/dL Urine Glucose (UA) 500 or greater (Negative) mg/dL - Imaging Impressions Foot MRI 10/27/17 17:28 CONCLUSION: 1. Osteomyelitis of the second toe, predominantly involving the proximal and middle phalanx. Surrounding cellulitis. Chest X-Ray 10/27/17 17:30 CONCLUSION: Minimal basilar atelectasis or scarring. No effusion or pneumothorax. Caprini VTE Risk Assessment Caprini VTE Risk Assessment: Moderate/High Risk (score >= 2) Caprini Risk Assessment Model: Point Value = 1 Point Value = 2 Point Value = 3 Point Value = 5 Age 41-60 Minor surgery BMI > 25 kg/m2 Swollen legs Varicose veins or History of unexplained or recurrent spontaneous Oral contraceptives or hormone replacement Sepsis (< 1 month) Serious lung disease, including pneumonia (< 1 month) Abnormal pulmonary function Acute myocardial infarction Congestive heart failure (< 1 month) History of inflammatory bowel disease Medical patient at bed rest Age 61-74 Arthroscopic surgery Major open surgery (> 45 min) Laparoscopic surgery (> 45 min) Malignancy Confined to bed (> 72 hours) Immobilizing plaster cast Central venous access Age >= 75 History of VTE Family history of VTE Factor V Leiden Prothrombin [id number] Lupus anticoagulant Anticardiolipin antibodies Elevated serum homocysteine Heparin-induced thrombocytopenia Other congenital or acquired thrombophilia Stroke (< 1 month) Elective arthroplasty Hip, pelvis, or leg fracture Acute spinal cord injury (< 1 month) Prophylaxis Regimen: Total Risk Factor Score Risk Level Prophylaxis Regimen 0-1 Low Early ambulation 2 Moderate Order ONE of the following: *Sequential Compression Device (SCD) *Heparin 5000 units SQ BID 3-4 Higher Order ONE of the following medications: *Heparin 5000 units SQ TID *Enoxaparin/Lovenox 40 mg SQ daily (WT < 150 kg, CrCl > 30 mL/min) *Enoxaparin/Lovenox 30 mg SQ daily (WT < 150 kg, CrCl > 10-29 mL/min) *Enoxaparin/Lovenox 30 mg SQ BID (WT < 150 kg, CrCl > 30 mL/min) AND/OR *Sequential Compression Device (SCD) 5 or more Highest Order ONE of the following medications: *Heparin 5000 units SQ TID (Preferred with Epidurals) *Enoxaparin/Lovenox 40 mg SQ daily (WT < 150 kg, CrCl > 30 mL/min) *Enoxaparin/Lovenox 30 mg SQ daily (WT < 150 kg, CrCl > 10-29 mL/min) *Enoxaparin/Lovenox 30 mg SQ BID (WT < 150 kg, CrCl > 30 mL/min) AND *Sequential Compression Device (SCD) Assessment and Plan - Assessment (1) Type 2 diabetes mellitus Code(s): E11.9 - Type 2 diabetes mellitus without complications Status: Chronic Plan: Cont home regimen and monitor closely and adjust therapy as needed. (2) Hypertension associated with diabetes Code(s): E11.59 - Type 2 diabetes mellitus with other circulatory complications ; I10 - Essential (primary) hypertension Status: Chronic Plan: Cont home meds and monitor. Adjust therapy as needed to maintain control. (3) Hypothyroid Code(s): E03.9 - Hypothyroidism, unspecified Status: Acute Plan: Cont home meds and F/U pending labs. - Assessment and Plan Osteo left foot sent to hospital per POD instructions. On antibiotics and POD consult pending. Discussed Condition With: Patient and daughter. H&P: Quality - VTE Deep Vein Thrombosis/Pulmonary Embolism Present on Admission: No (1) Type 2 diabetes mellitus Qualifiers: Diabetes mellitus complication status: with skin complications Diabetes mellitus complication detail: with foot ulcer
[2017-10-28 11:45] LABS: Hemoglobin A1c 5.8 % (4.3-6.0)
--- NOTE | 2017-10-28 11:57 | ECHRPT ---
EXAM DATE: 10/28/2017 11:53 AM EDT AGE/SEX: 87 years / Female INDICATIONS: Left 2nd digit osteomyelitis CLINICAL DATA: This is the patient's initial encounter. Patient reports that signs and symptoms have been present for 1 week and indicates a pain score of 2/10. MEDICAL/SURGICAL HISTORY: . rheumatoid arthritis, diabetes type II controlled, hypertension . bilateral knee surgery, hip surgery COMPARISON: . TECHNIQUE: Four-cuff ankle and brachial pressures were obtained. Pulse cuff waveform tracings of the ankles were recorded, and ankle-brachial indices were calculated. PRESSURES (mmHg): Brachial (arm) : RIGHT: iv site, LEFT: 151 Ankle : RIGHT: 127, LEFT: 120 RED : RIGHT: 0.84, LEFT: 0.79 TBI : RIGHT: 0.42, LEFT: 0.31 FINDINGS: Pulsed-Cuff Waveform: Diminished pulse wave tracings. CONCLUSION: 1. Significant vascular disease TBI 0.4 on the right and 0.3 and the left. 2. RED 0.8 on the right and 0.8 on the left. Electronically signed by: Jose Luis Phipps MD 10/28/2017 11:55 AM EDT
--- NOTE | 2017-10-28 14:27 | ECG ---
Date Performed: 10/27/2017 Time Performed: 17:52:50 PTAGE: 87 years EKG: Probable Sinus rhythm with PAC's Cannot entirely exclude Atrial Fibrillation RIGHT BUNDLE BRANCH BLOCK LEFT ANTERIOR FASCI CULAR BLOCK POSSIBLE SEPTAL MYOCARDIAL INFARCTION ABNORMAL ECG INTERPRETATION BASED ON A DEFAULT AGE OF 40 YEARS PREVIOUS TRACING : 04/14/2011 14.58 Since the previous tracing, no significant change not ed DOCTOR: Rajesh Brumfield Interpretating Date/Time 10/28/2017 14:25:31
[2017-10-28] MEDS: Vancomycin Inj 1,000 MG in Sodium Chlor 0.9% Inj 250 ML IV.SIG SCH (21:36)
--- NOTE | 2017-10-29 00:31 | P.PNPOD ---
Subjective Interval history: Left 2nd digit OM Seen at bedside this am. Physical Exam Vital signs: Vital Signs 10/28/17 04:00 10/28/17 08:00 10/28/17 12:00 Temperature 97.4 F L 97.9 F Pulse Rate 76 108 H 71 Respiratory Rate 20 18 Blood Pressure 142/64 H 223/122 H Pulse Oximetry 94 L 97 10/28/17 16:00 10/28/17 20:00 Temperature 97.4 F L 97.6 F Pulse Rate 102 H 98 H Respiratory Rate 18 16 Blood Pressure 217/105 H 127/63 Pulse Oximetry 95 95 Intake & Output 10/28/17 10/28/17 10/29/17 06:59 18:59 06:59 Intake Total 1005 / 1005 200 / 200 Output Total 450 / 450 Balance 555 / 555 200 / 200 Weight 58.2 kg Intake: IV 765 / 765 200 / 200 Levaquin 750 mg Premix Inj 150 150 / 150 ML @ 100 mls/hr IV.SIG ONCE ONE Rx#:[id number] Vancomycin Inj 1,500 MG In NS 515 / 515 Inj 500 ML @ 250 mls/hr IV.SIG ONCE ONE Rx#:[id number] Flagyl 500 MG Inj 100 ML @ 100 100 / 100 200 / 200 mls/hr IV.SIG Q8H [facility] Rx#: [id number] Oral 240 / 240 0 / 0 Output: Urine 450 / 450 Other: # Voids 2 Date of Last Bowel Movement 10/27/17 10/28/17 # Bowel Movements 0 Weight On Admission 58.2 kg Narrative: Left FF decreased edema and erythema compared to admission. + drainage at the 2nd digit. NVS unchanged. Medications and Allergies Active Medications: Active Medications Acetaminophen (Tylenol) 650 mg PO Q6H PRN PRN Reason: PAIN SCALE 1 TO 2 Hydrocodone Bitart/Acetaminophen ([place] 5/325) 1 tab PO Q4H PRN PRN Reason: PAIN SCALE 3 TO 5 Hydrocodone Bitart/Acetaminophen ([place] 10/325) 1 tab PO Q4H PRN PRN Reason: PAIN SCALE 6 TO 10 Last Admin: 10/28/17 12:20 Dose: 1 tab Al Hydroxide/Mg Hydroxide (Milk Of Magnesia Liq) 30 ml PO Q12H PRN PRN Reason: Mild Constipation Ascorbic Acid (Vitamin C) 1,000 mg PO DAILY [facility] Last Admin: 10/28/17 08:01 Dose: 1,000 mg Bisacodyl (Dulcolax Supp) 10 mg RECTAL DAILY PRN PRN Reason: SEVERE CONSITIPATION Clonidine HCl (Catapres) 0.1 mg PO Q6H PRN PRN Reason: HYPERTENSION Last Admin: 10/28/17 07:54 Dose: 0.1 mg Dextrose (D50w Vial) 50 ml IV.PUSH UNSCH PRN PRN Reason: PER HYPOGLYCEMIA PROTOCOL Glucagon (Glucagon Inj) 1 mg OTHER PRN PRN PRN Reason: for Hypoglycemia Protocol Levofloxacin/Dextrose (Levaquin 750 Mg Premix Inj) 150 mls @ 100 mls/hr IV.SIG Q24H [facility] Metronidazole/Sodium Chloride (Flagyl 500 Mg Inj) 100 mls @ 100 mls/hr IV.SIG Q8H [facility] Last Infusion: 10/28/17 18:53 Dose: Infused Pharmacy Profile Note (Vancomycin Consult Pharmacy) 0 mls @ 0 mls/hr OTHER UNSCH [facility] Sodium Chloride (Ns Inj) 1,000 mls @ 75 mls/hr IV.CONT .[id number] [facility] Last Admin: 10/28/17 21:35 Dose: Not Given Vancomycin HCl 1,000 mg/ (Sodium Chloride) 250 mls @ 250 mls/hr IV.SIG Q24H [facility] Last Admin: 10/28/17 21:36 Dose: 250 mls/hr Insulin Aspart (Novolog Insulin Correctional Sugar Inj) 0 unit SQ ACHS AND 3AM [facility]; Protocol Last Admin: 10/28/17 20:38 Dose: Not Given Lactulose (Lactulose Liq) 30 ml PO DAILY PRN PRN Reason: SEVERE CONSITIPATION Metoprolol Tartrate (Lopressor) 12.5 mg PO HS [facility] Last Admin: 10/28/17 20:37 Dose: 12.5 mg Miscellaneous Information ([facility] [place] Ordered Lab Info) 0 each OTHER ONCE ONE Stop: 10/30/17 21:46 Morphine Sulfate (Morphine Inj) 2 mg IV.PUSH Q3H PRN PRN Reason: PAIN 3-5; IF UABLE TO TAKE PO Morphine Sulfate (Morphine Inj) 4 mg IV.PUSH Q3H PRN PRN Reason: PAIN 6-10;IF UNABLE TO TAKE PO Morphine Sulfate (Morphine Inj) 4 mg IV.PUSH Q3H PRN PRN Reason: BREAKTHROUGH PAIN Naloxone HCl (Narcan Inj) 0.4 mg IV.PUSH UNSCH PRN PRN Reason: SEE LABEL COMMENTS Ondansetron HCl (Zofran Inj) 4 mg IV.PUSH Q6H PRN PRN Reason: NAUSEA OR VOMITING Senna/Docusate Sodium (Mariia-Colace) 1 tab PO BID [facility] Last Admin: 10/28/17 20:37 Dose: Not Given Sennosides (Senokot) 17.2 mg PO Q12H PRN PRN Reason: Moderate Constipation Sodium Chloride (Sodium Chloride) 1 gm PO BID [facility] Last Admin: 10/28/17 20:37 Dose: 1 gm Thyroid ([place] Thyroid) 30 mg PO BID [facility] Last Admin: 10/28/17 20:37 Dose: 30 mg Vitamin D (Vitamin D3) 2,000 unit PO BID [facility] Last Admin: 10/28/17 20:38 Dose: 1,000 unit Allergies Allergy/AdvReac Type Severity Reaction Status Date / Time ipratropium Allergy Severe MOUTH Verified 10/27/17 17:39 SWELLIN; ALLERGIC TO ALL NUTS latex Allergy Severe CAN'T Verified 10/27/17 17:39 REMEMBER/SEVERE REACTION PER DOCTOR shellfish derived Allergy Severe Anaphylaxis Verified 10/27/17 17:39 lactose Allergy Mild DIGESTION Verified 10/27/17 17:39 PROBLEMS penicillin G Allergy Mild RASH Verified 10/27/17 17:39 iodine Allergy Unknown Anaphylaxis Verified 10/27/17 17:39 Home Medications Medication Instructions Recorded Confirmed Type Jardiance 10 mg DAILY 10/27/17 10/27/17 History Vitamin C 1,000 mg DAILY 10/27/17 10/27/17 History Vitamin D3 Complete 2,000 mcg BID 10/27/17 10/27/17 History aspirin 8 mg DAILY 10/27/17 10/27/17 History metoprolol tartrate 12.5 mg HS 10/27/17 10/27/17 History multivitamin DAILY 10/27/17 History sodium chloride 1 gm BID 10/27/17 10/27/17 History thyroid (pork) 30 mg BID 10/27/17 10/27/17 History Results - Labs CBC & Chem 7: 10/28/17 04:13 10/28/17 04:13 Laboratory Results - last 24 hr 10/28/17 10/28/17 10/28/17 04:13 04:13 04:13 WBC 5.8 RBC 4.84 Hgb 12.6 Hct 38.6 MCV 79.8 L MCH 26.0 L MCHC 32.5 RDW 15.1 Plt Count 222 MPV 7.5 Neut % (Auto) 75.4 H Lymph % (Auto) 13.3 [place] % (Auto) 9.7 H Eos % (Auto) 1.2 Baso % (Auto) 0.4 Neut # (Auto) 4.4 Lymph # (Auto) 0.8 L [place] # (Auto) 0.6 Eos # (Auto) 0.1 Baso # (Auto) 0.0 WBC Differential . Differential Comment Auto diff final PT 12.5 H INR 1.2 Sodium Potassium Chloride Carbon Dioxide Anion Gap BUN Creatinine Estimated GFR POC Glucose Random Glucose Hemoglobin A1c 5.8 Calcium Phosphorus Magnesium Total Bilirubin AST ALT Alkaline Phosphatase Total Protein Albumin TSH Free T4 10/28/17 10/28/17 10/28/17 04:13 04:13 17:44 WBC RBC Hgb Hct MCV MCH MCHC RDW Plt Count MPV Neut % (Auto) Lymph % (Auto) [place] % (Auto) Eos % (Auto) Baso % (Auto) Neut # (Auto) Lymph # (Auto) [place] # (Auto) Eos # (Auto) Baso # (Auto) WBC Differential Differential Comment PT INR Sodium 135 L Potassium 3.9 Chloride 96 L Carbon Dioxide 25.9 Anion Gap 13 BUN 12 Creatinine 0.58 Estimated GFR Greater than 89 POC Glucose 87 Random Glucose 99 Hemoglobin A1c Calcium 8.1 L D Phosphorus 3.1 Magnesium 1.6 Total Bilirubin 0.5 AST 18 ALT 14 Alkaline Phosphatase 102 Total Protein 7.2 D Albumin 2.9 L D TSH 0.909 Free T4 1.19 Microbiology 10/27/17 17:30 Blood - Peripheral Aerobic Blood Culture - Preliminary No growth in 1 day 10/27/17 17:30 Blood - Peripheral Anaerobic Blood Culture - Preliminary No growth in 1 day 10/27/17 17:35 Blood - Peripheral Aerobic Blood Culture - Preliminary No growth in 1 day 10/27/17 17:35 Blood - Peripheral Anaerobic Blood Culture - Preliminary No growth in 1 day - Imaging Impressions Extremity Arterial Study 10/27/17 00:00 CONCLUSION: 1. Significant vascular disease TBI 0.4 on the right and 0.3 and the left. 2. RED 0.8 on the right and 0.8 on the left. Assessment and Plan - Assessment (1) Osteomyelitis of toe of left foot Code(s): M86.9 - Osteomyelitis, unspecified Status: Acute - Plan Improved on IV abx Plan to discuss with family IV abx vs 2nd digit amputation. Continue with Betadine daily left 2nd digit
[2017-10-29] MEDS: Insulin NovoLOG Aspart Correctional Sugar Inj SQ SCH ×5 (03:03→22:43)
[2017-10-29] MEDS: Sodium Chloride 1 GM Tablet PO SCH ×2 (09:49→22:43)
[2017-10-29] MEDS: Ascorbic Acid 500 MG Tablet PO SCH (09:49)
[2017-10-29] MEDS: Senna/Docusate Sodium 8.6/50 MG Tablet PO SCH ×2 (09:50→22:43)
[2017-10-29] MEDS: Sod Chloride 0.9% Inj 1,000 ML IV.CONT SCH ×2 (10:30→23:32)
--- NOTE | 2017-10-29 11:04 | P.PNFP ---
Subjective Interval history: Podiatry suggests amputation of digit verses prison antibiotics. Family and patient to decide. Results - Labs Result diagrams: 10/28/17 04:13 10/29/17 06:02 Abnormal lab results 10/29/17 Range/Units 06:02 Estimated GFR 73 L (>89) mL/min BMP 10/29/17 06:02 Creatinine 0.75 - Imaging Impressions Extremity Arterial Study 10/27/17 00:00 CONCLUSION: 1. Significant vascular disease TBI 0.4 on the right and 0.3 and the left. 2. RED 0.8 on the right and 0.8 on the left. Physical Exam Vital signs: Vital Signs 10/28/17 12:00 10/28/17 16:00 10/28/17 20:00 Temperature 97.4 F L 97.6 F Pulse Rate 71 102 H 98 H Respiratory Rate 18 16 Blood Pressure 217/105 H 127/63 Pulse Oximetry 95 95 10/29/17 00:00 10/29/17 04:00 10/29/17 08:00 Temperature 98.1 F 97.9 F 97.2 F L Pulse Rate 89 104 H 77 Respiratory Rate 18 20 18 Blood Pressure 171/91 H 162/87 H 213/107 H Pulse Oximetry 94 L 93 L 98 10/29/17 10:25 Temperature Pulse Rate Respiratory Rate Blood Pressure Pulse Oximetry 98 Intake & Output 10/28/17 10/29/17 10/29/17 18:59 06:59 18:59 Intake Total 200 / 200 350 / 350 Balance 200 / 200 350 / 350 Weight 58.7 kg Intake: IV 200 / 200 350 / 350 Vancomycin Inj 1,000 MG In NS 250 / 250 Inj 250 ML @ 250 mls/hr IV.SIG Q24H [facility] Rx#:[id number] Flagyl 500 MG Inj 100 ML @ 100 200 / 200 100 / 100 mls/hr IV.SIG Q8H [facility] Rx#: [id number] Oral 0 / 0 Other: # Voids 2 Date of Last Bowel Movement 10/28/17 # Bowel Movements 0 - Constitutional no acute distress - Routine HEENT Exam Head: Present: normocephalic Eye: Present: PERRL ENT: Present: mucous membranes moist - Routine Neck Exam Present: supple, full ROM - Routine Respiratory Exam Present: distant breath sounds - Routine Cardiovascular Exam Present: RRR, S1, S2 - Routine Abdominal Exam Present: soft - Routine Extremities Exam Comments: D/C from second digit but erythema is improved overnight. - Routine Skin Exam Present: erythema - Routine Neurological Exam Present: alert, oriented X3 - Detailed Neurological Exam: Coma Scale Eye Opening: Spontaneous Verbal Response: Oriented Motor Response: Obey commands Prashant Coma Scale Total: 15 - Routine Psychiatric Exam Present: normal affect Assessment and Plan - Assessment (1) Type 2 diabetes mellitus Code(s): E11.9 - Type 2 diabetes mellitus without complications Status: Chronic Plan: Cont home regimen and monitor closely and adjust therapy as needed. (2) Hypertension associated with diabetes Code(s): E11.59 - Type 2 diabetes mellitus with other circulatory complications ; I10 - Essential (primary) hypertension Status: Chronic Plan: Cont home meds and monitor. Adjust therapy as needed to maintain control. (3) Hypothyroid Code(s): E03.9 - Hypothyroidism, unspecified Status: Acute Plan: Cont home meds and F/U. - Assessment and Plan Osteo left foot sent to hospital per POD instructions. 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 (1) Type 2 diabetes mellitus Qualifiers: Diabetes mellitus complication status: with skin complications Diabetes mellitus complication detail: with foot ulcer
--- NOTE | 2017-10-29 13:57 | P.PNPOD ---
Subjective Interval history: Left 2nd digit OM Physical Exam Vital signs: Vital Signs 10/28/17 16:00 10/28/17 20:00 10/29/17 00:00 Temperature 97.4 F L 97.6 F 98.1 F Pulse Rate 102 H 98 H 89 Respiratory Rate 18 16 18 Blood Pressure 217/105 H 127/63 171/91 H Pulse Oximetry 95 95 94 L 10/29/17 04:00 10/29/17 08:00 10/29/17 10:25 Temperature 97.9 F 97.2 F L Pulse Rate 104 H 77 Respiratory Rate 20 18 Blood Pressure 162/87 H 213/107 H Pulse Oximetry 93 L 98 98 Intake & Output 10/28/17 10/29/17 10/29/17 18:59 06:59 18:59 Intake Total 200 / 200 350 / 350 Balance 200 / 200 350 / 350 Weight 58.7 kg Intake: IV 200 / 200 350 / 350 Vancomycin Inj 1,000 MG In NS 250 / 250 Inj 250 ML @ 250 mls/hr IV.SIG Q24H [facility] Rx#:[id number] Flagyl 500 MG Inj 100 ML @ 100 200 / 200 100 / 100 mls/hr IV.SIG Q8H [facility] Rx#: [id number] Oral 0 / 0 Other: # Voids 2 Date of Last Bowel Movement 10/28/17 # Bowel Movements 0 Narrative: LLE Significant decrease in edema and erythema. + drainage to the left IPJ + probing to joint. + POP NVS intact. Medications and Allergies Active Medications: Active Medications Acetaminophen (Tylenol) 650 mg PO Q6H PRN PRN Reason: PAIN SCALE 1 TO 2 Hydrocodone Bitart/Acetaminophen ([place] 5/325) 1 tab PO Q4H PRN PRN Reason: PAIN SCALE 3 TO 5 Hydrocodone Bitart/Acetaminophen ([place] 10/325) 1 tab PO Q4H PRN PRN Reason: PAIN SCALE 6 TO 10 Last Admin: 10/29/17 09:48 Dose: 1 tab Al Hydroxide/Mg Hydroxide (Milk Of Magnesia Liq) 30 ml PO Q12H PRN PRN Reason: Mild Constipation Ascorbic Acid (Vitamin C) 1,000 mg PO DAILY [facility] Last Admin: 10/29/17 09:49 Dose: 1,000 mg Bisacodyl (Dulcolax Supp) 10 mg RECTAL DAILY PRN PRN Reason: SEVERE CONSITIPATION Clonidine HCl (Catapres) 0.1 mg PO Q6H PRN PRN Reason: HYPERTENSION Last Admin: 10/29/17 09:49 Dose: 0.1 mg Dextrose (D50w Vial) 50 ml IV.PUSH UNSCH PRN PRN Reason: PER HYPOGLYCEMIA PROTOCOL Glucagon (Glucagon Inj) 1 mg OTHER PRN PRN PRN Reason: for Hypoglycemia Protocol Levofloxacin/Dextrose (Levaquin 750 Mg Premix Inj) 150 mls @ 100 mls/hr IV.SIG Q24H [facility] Metronidazole/Sodium Chloride (Flagyl 500 Mg Inj) 100 mls @ 100 mls/hr IV.SIG Q8H [facility] Last Admin: 10/29/17 10:10 Dose: 100 mls/hr Pharmacy Profile Note (Vancomycin Consult Pharmacy) 0 mls @ 0 mls/hr OTHER UNSCH [facility] Sodium Chloride (Ns Inj) 1,000 mls @ 75 mls/hr IV.CONT .[id number] [facility] Last Admin: 10/28/17 21:35 Dose: Not Given Vancomycin HCl 1,000 mg/ (Sodium Chloride) 250 mls @ 250 mls/hr IV.SIG Q24H [facility] Last Infusion: 10/29/17 00:36 Dose: Infused Insulin Aspart (Novolog Insulin [facility] Sugar Inj) 0 unit SQ ACHS AND 3AM [facility]; Protocol Last Admin: 10/29/17 08:00 Dose: Not Given Lactulose (Lactulose Liq) 30 ml PO DAILY PRN PRN Reason: SEVERE CONSITIPATION Metoprolol Tartrate (Lopressor) 12.5 mg PO HS [facility] Last Admin: 10/28/17 20:37 Dose: 12.5 mg Miscellaneous Information ([facility] Ordered Lab Info) 0 each OTHER ONCE ONE Stop: 10/30/17 21:46 Morphine Sulfate (Morphine Inj) 2 mg IV.PUSH Q3H PRN PRN Reason: PAIN 3-5; IF UABLE TO TAKE PO Morphine Sulfate (Morphine Inj) 4 mg IV.PUSH Q3H PRN PRN Reason: PAIN 6-10;IF UNABLE TO TAKE PO Morphine Sulfate (Morphine Inj) 4 mg IV.PUSH Q3H PRN PRN Reason: BREAKTHROUGH PAIN Naloxone HCl (Narcan Inj) 0.4 mg IV.PUSH UNSCH PRN PRN Reason: SEE LABEL COMMENTS Ondansetron HCl (Zofran Inj) 4 mg IV.PUSH Q6H PRN PRN Reason: NAUSEA OR VOMITING Senna/Docusate Sodium (Mariia-Colace) 1 tab PO BID [facility] Last Admin: 10/29/17 09:50 Dose: Not Given Sennosides (Senokot) 17.2 mg PO Q12H PRN PRN Reason: Moderate Constipation Sodium Chloride (Sodium Chloride) 1 gm PO BID [facility] Last Admin: 10/29/17 09:49 Dose: 1 gm Thyroid ([place] Thyroid) 30 mg PO BID [facility] Last Admin: 10/29/17 09:49 Dose: 30 mg Vitamin D (Vitamin D3) 2,000 unit PO BID [facility] Last Admin: 10/29/17 09:49 Dose: 2,000 unit Allergies Allergy/AdvReac Type Severity Reaction Status Date / Time ipratropium Allergy Severe MOUTH Verified 10/27/17 17:39 SWELLIN; ALLERGIC TO ALL NUTS latex Allergy Severe CAN'T Verified 10/27/17 17:39 REMEMBER/SEVERE REACTION PER DOCTOR shellfish derived Allergy Severe Anaphylaxis Verified 10/27/17 17:39 lactose Allergy Mild DIGESTION Verified 10/27/17 17:39 PROBLEMS penicillin G Allergy Mild RASH Verified 10/27/17 17:39 iodine Allergy Unknown Anaphylaxis Verified 10/27/17 17:39 Home Medications Medication Instructions Recorded Confirmed Type Jardiance 10 mg DAILY 10/27/17 10/27/17 History Vitamin C 1,000 mg DAILY 10/27/17 10/27/17 History Vitamin D3 Complete 2,000 mcg BID 10/27/17 10/27/17 History aspirin 8 mg DAILY 10/27/17 10/27/17 History metoprolol tartrate 12.5 mg HS 10/27/17 10/27/17 History multivitamin DAILY 10/27/17 History sodium chloride 1 gm BID 10/27/17 10/27/17 History thyroid (pork) 30 mg BID 10/27/17 10/27/17 History Results - Labs CBC & Chem 7: 10/28/17 04:13 10/29/17 06:02 Laboratory Results - last 24 hr 10/28/17 10/29/17 10/29/17 17:44 06:02 07:50 Creatinine 0.75 Estimated GFR 73 L POC Glucose 87 88 10/29/17 13:21 Creatinine Estimated GFR POC Glucose 83 Microbiology 10/27/17 17:30 Blood - Peripheral Aerobic Blood Culture - Preliminary No growth in 2 days 10/27/17 17:30 Blood - Peripheral Anaerobic Blood Culture - Preliminary No growth in 2 days 10/27/17 17:35 Blood - Peripheral Aerobic Blood Culture - Preliminary No growth in 2 days 10/27/17 17:35 Blood - Peripheral Anaerobic Blood Culture - Preliminary No growth in 2 days Assessment and Plan - Assessment (1) Osteomyelitis of toe of left foot Code(s): M86.9 - Osteomyelitis, unspecified Status: Acute - Plan Improved on IV abx Discussed with daughter Milana Caballero on 10/29/17 at 12.20 Recommended IV abx x 6 weeks. f/u with [facility] with in 1 week of d/c.
[2017-10-29] MEDS: Metoprolol Tartrate 25 MG Tablet PO SCH (22:43)
[2017-10-29] MEDS: Vancomycin Inj 1,000 MG in Sodium Chlor 0.9% Inj 250 ML IV.SIG SCH (22:44)
[2017-10-30] MEDS: Insulin NovoLOG Aspart Correctional Sugar Inj SQ SCH ×5 (02:07→20:19)
[2017-10-30] MEDS: Sodium Chloride 1 GM Tablet PO SCH ×2 (09:42→20:18)
[2017-10-30] MEDS: Ascorbic Acid 500 MG Tablet PO SCH (09:42)
[2017-10-30] MEDS: Senna/Docusate Sodium 8.6/50 MG Tablet PO SCH ×2 (09:42→20:19)
--- NOTE | 2017-10-30 12:31 | P.PNFP ---
Subjective Interval history: No complaints Slept well denies pain Voices she has decided against amputation of 2nd left toe Results - Labs Result diagrams: 10/28/17 04:13 10/29/17 06:02 Abnormal lab results 10/29/17 10/29/17 Range/Units 17:12 20:26 POC Glucose 66 L 137 H (68-110) mg/dl Physical Exam Vital signs: Vital Signs 10/29/17 16:00 10/29/17 20:00 10/30/17 00:00 Temperature 97.1 F L 97.6 F 97.1 F L Pulse Rate 63 81 64 Respiratory Rate 18 18 18 Blood Pressure 160/105 H 201/95 H 120/62 Pulse Oximetry 100 96 10/30/17 04:00 10/30/17 08:00 10/30/17 11:36 Temperature 98.1 F 98.2 F Pulse Rate 74 70 Respiratory Rate 16 15 Blood Pressure 159/72 H 176/82 H Pulse Oximetry 95 96 96 Intake & Output 10/29/17 10/30/17 10/30/17 18:59 06:59 18:59 Intake Total 220 / 220 240 / 240 100 / 100 Balance 220 / 220 240 / 240 100 / 100 Weight 54.1 kg Intake: IV 100 / 100 100 / 100 Flagyl 500 MG Inj 100 ML @ 100 100 / 100 100 / 100 mls/hr IV.SIG Q8H [facility] Rx#: [id number] Oral 120 / 120 240 / 240 Other: # Voids 1 # Incontinent Voids 4 # Bowel Movements 0 - Constitutional no acute distress - Routine HEENT Exam ENT: Present: mucous membranes moist - Routine Neck Exam Present: supple - Routine Respiratory Exam Present: CTA bilaterally - Routine Cardiovascular Exam Present: S1, S2 - Routine Abdominal Exam Present: soft, normoactive bowel sounds - Routine Extremities Exam Present: pulses intact - Routine Skin Exam Present: dry, warm Comments: dressing to left 2nd toe - Routine Neurological Exam Present: alert - Routine Psychiatric Exam Present: cooperative Assessment and Plan - Assessment (1) Type 2 diabetes mellitus Code(s): E11.9 - Type 2 diabetes mellitus without complications Status: Chronic Plan: Cont home regimen and monitor closely and adjust therapy as needed. (2) Hypertension associated with diabetes Code(s): E11.59 - Type 2 diabetes mellitus with other circulatory complications ; I10 - Essential (primary) hypertension Status: Chronic Plan: Cont home meds and monitor. Adjust therapy as needed to maintain control. (3) Hypothyroid Code(s): E03.9 - Hypothyroidism, unspecified Status: Acute Plan: Cont home meds and F/U. - Assessment and Plan Osteo left foot sent to hospital per POD instructions. 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 10/30/17- Patient voices that they have decided to go with 6 weeks of antibiotics , as wound is responding per podiatry notes. Will plan for DC once Antibiotics arranges. (1) Type 2 diabetes mellitus Qualifiers: Diabetes mellitus complication status: with skin complications Diabetes mellitus complication detail: with foot ulcer
[2017-10-30 13:52] LABS: Hematocrit 41.1 % (35.0-46.0); Hemoglobin 13.5 gm/dL (11.6-15.3); Mean Corpuscular HGB Conc 32.9 % (32.0-36.0); Mean Corpuscular Hemoglobin 26.3 pg (27.0-34.0); Mean Corpuscular Volume 79.9 fL (80.0-100.0); Mean Platelet Volume 7.3 fL (7.0-11.0); Platelet Count 219 th/mm3 (150-450); Red Blood Count 5.15 mil/mm3 (4.00-5.30); White Blood Count 5.5 th/mm3 (4.0-11.0)
[2017-10-30 14:21] LABS: Anion Gap 12 meq/L (5-15); Blood Urea Nitrogen 15 mg/dL (7-18); Calcium 8.5 mg/dL (8.5-10.1); Carbon Dioxide 24.6 meq/L (21.0-32.0); Chloride 101 meq/L (98-107); Glomerular Filtration Rate Greater Than 89 mL/min (>89); Glucose,Random 90 mg/dL (74-106); Potassium 3.7 meq/L (3.5-5.1); Sodium 138 meq/L (136-145)
[2017-10-30] MEDS: Sod Chloride 0.9% Inj 1,000 ML IV.CONT SCH (15:19)
[2017-10-30] MEDS: Metoprolol Tartrate 25 MG Tablet PO SCH (20:17)
[2017-10-30] MEDS ORDERED: Pharmacy Ordered Lab Info OTHER ONE (21:45)
[2017-10-30] MEDS: Vancomycin Inj 1,000 MG in Sodium Chlor 0.9% Inj 250 ML IV.SIG SCH (21:59)
[2017-10-31] MEDS: Sod Chloride 0.9% Inj 1,000 ML IV.CONT SCH ×2 (03:46→17:02)
[2017-10-31] MEDS: Insulin NovoLOG Aspart Correctional Sugar Inj SQ SCH ×5 (03:47→21:10)
[2017-10-31 06:44] LABS: Glomerular Filtration Rate Greater Than 89 mL/min (>89)
[2017-10-31] MEDS: Sodium Chloride 1 GM Tablet PO SCH ×2 (08:48→21:10)
[2017-10-31] MEDS: Senna/Docusate Sodium 8.6/50 MG Tablet PO SCH ×2 (08:48→21:10)
[2017-10-31] MEDS: Ascorbic Acid 500 MG Tablet PO SCH (08:48)
--- NOTE | 2017-10-31 09:20 | P.PNFP ---
Subjective Interval history: Afebrile, Denies CP, SOB, NV/Diarrhea denies pain Results - Labs Result diagrams: 10/30/17 13:33 10/31/17 04:59 Abnormal lab results 10/30/17 10/30/17 10/30/17 Range/Units 13:33 17:44 21:45 MCV 79.9 L (80.0-100.0) fL MCH 26.3 L (27.0-34.0) pg POC Glucose 143 H (68-110) mg/dl Vancomycin Trough 4.0 L (5.0-10.0) mcg/mL Short CBC 10/30/17 Range/Units 13:33 WBC 5.5 (4.0-11.0) th/mm3 Hgb 13.5 (11.6-15.3) gm/dL Hct 41.1 (35.0-46.0) % Plt Count 219 (150-450) th/mm3 BMP 10/30/17 10/31/17 13:33 04:59 Sodium 138 Potassium 3.7 Chloride 101 Carbon Dioxide 24.6 BUN 15 Creatinine 0.61 0.50 Calcium 8.5 Physical Exam Vital signs: Vital Signs 10/30/17 11:36 10/30/17 12:00 10/30/17 16:00 Temperature 98.2 F 98.0 F Pulse Rate 69 75 Respiratory Rate 16 16 Blood Pressure 188/88 H 182/91 H Pulse Oximetry 96 95 96 10/30/17 20:00 10/30/17 20:25 10/31/17 00:00 Temperature 98 F 97.5 F L Pulse Rate 95 H 154 H 66 Respiratory Rate 16 18 Blood Pressure 168/94 H 156/82 H Pulse Oximetry 96 94 L 10/31/17 04:00 Temperature 98.1 F Pulse Rate 84 Respiratory Rate 15 Blood Pressure 166/95 H Pulse Oximetry 94 L Intake & Output 10/30/17 10/31/17 10/31/17 18:59 06:59 18:59 Intake Total 200 / 200 590 / 590 Balance 200 / 200 590 / 590 Weight 56.9 kg Intake: IV 200 / 200 350 / 350 Vancomycin Inj 1,000 MG In NS 250 / 250 Inj 250 ML @ 250 mls/hr IV.SIG Q24H [facility] Rx#:[id number] Flagyl 500 MG Inj 100 ML @ 100 200 / 200 100 / 100 mls/hr IV.SIG Q8H [facility] Rx#: [id number] Oral 240 / 240 Other: # Incontinent Voids 3 5 - Constitutional no acute distress - Routine HEENT Exam Eye: Present: PERRL ENT: Present: mucous membranes moist - Routine Respiratory Exam Present: CTA bilaterally - Routine Cardiovascular Exam Present: S1, S2 - Routine Abdominal Exam Present: soft, normoactive bowel sounds - Routine Skin Exam Present: dry, warm Comments: Dressing to left foot - Routine Neurological Exam Present: alert - Routine Psychiatric Exam Present: cooperative Assessment and Plan - Assessment (1) Type 2 diabetes mellitus Code(s): E11.9 - Type 2 diabetes mellitus without complications Status: Chronic Plan: Cont home regimen and monitor closely and adjust therapy as needed. (2) Hypertension associated with diabetes Code(s): E11.59 - Type 2 diabetes mellitus with other circulatory complications ; I10 - Essential (primary) hypertension Status: Chronic Plan: Cont home meds and monitor. Adjust therapy as needed to maintain control. (3) Hypothyroid Code(s): E03.9 - Hypothyroidism, unspecified Status: Acute Plan: Cont home meds and F/U. - Assessment and Plan Osteo left foot sent to hospital per POD instructions. On antibiotics and POD suggeests decision per family/patient regarding amputation of digit vs snf antibiotics. 10/30/17- Patient voices that they have decided to go with 6 weeks of antibiotics , as wound is responding per podiatry notes. Will plan for DC once Antibiotics arranges. 10/31/17- Uneventful night reported, VSS afebrile. BS <150 last 24h. Will need 6 wks of antibiotics, currently on Levaquin, Flagyl and vanco. Will consult ID for further recommendations. [facility], may need snf placement for IV antibiotics. Will await for ID rec's. Discussed with Case art and RN (1) Type 2 diabetes mellitus Qualifiers: Diabetes mellitus complication status: with skin complications Diabetes mellitus complication detail: with foot ulcer
--- NOTE | 2017-10-31 17:35 | P.CONID ---
History of Present Illness Service: ID Consult date: 10/31/17 Requesting Physician: Mariel Luque Reason for Consult: osteomyelitis antibiotic reccommendation/ duration Primary Care Provider: Juan Ortiz DO Family Provider: UNKNOWN Chief Complaint: Sent by podiatry for suspected left foot osteomyelitis History of Present Illness: pt has advanced dementia and unable to provide any history Apparently she is an 87 yo diabetic female was brought in last Monday for persistent /worsening ulceration of L 2nd toe the ulcer, swelling and redness was preesent forabout 1 week or so - per records NO fever or leukocytosis TBI was markedly reduced on vasc study wihth 0.3 ratio on L and 0.4 on the R POdiaatrist evasluated the pt and recommended amputation Review of Systems unobtainable due to mental condition PMFSH - History History Provided By: Patient - Medical / Surgical Hx Neg / Unobtainable Medical Problems Denied: Yes - Medical History Medical History: Medical History (Last Reviewed 10/31/17 @ 19:50 by Cheryl Otto MD) Diabetes type 2, controlled HTN (hypertension) Rheumatoid arthritis - Surgical History Surgical History: Surgical History (Last Reviewed 10/31/17 @ 19:50 by Cheryl Otto MD) History of bilateral knee replacement History of hip surgery - Family History Family History: Family History (Last Reviewed 10/31/17 @ 19:50 by Cheryl Otto MD) Other Family history unobtainable - Social History I have reviewed the patient's Social History: Yes - Tobacco History Second Hand Smoke Exposure: No Tobacco Use In Past 30 Days: No Smoking Status: Never smoker - Alcohol History How Often Do You Have a Drink Containing Alcohol: Never - Substance Use History Substance History: No History of Abuse - Travel History History of Recent Travel: No Recent Travel in the [place] Within the Last 8 Weeks: No Recent Travel Out of the Country Within the Last 8 Weeks: No - Immunization History Tetanus Immunization: Unsure Hx Influenza Vaccine This Season: Yes Medications and Allergies Active Medications: Active Medications Acetaminophen (Tylenol) 650 mg PO Q6H PRN PRN Reason: PAIN SCALE 1 TO 2 Hydrocodone Bitart/Acetaminophen (Spreckels 5/325) 1 tab PO Q4H PRN PRN Reason: PAIN SCALE 3 TO 5 Hydrocodone Bitart/Acetaminophen (Spreckels 10/325) 1 tab PO Q4H PRN PRN Reason: PAIN SCALE 6 TO 10 Last Admin: 10/29/17 09:48 Dose: 1 tab Al Hydroxide/Mg Hydroxide (Milk Of Magnesia Liq) 30 ml PO Q12H PRN PRN Reason: Mild Constipation Ascorbic Acid (Vitamin C) 1,000 mg PO DAILY [facility] Last Admin: 10/31/17 08:48 Dose: 1,000 mg Bisacodyl (Dulcolax Supp) 10 mg RECTAL DAILY PRN PRN Reason: SEVERE CONSITIPATION Clonidine HCl (Catapres) 0.1 mg PO Q6H PRN PRN Reason: HYPERTENSION Last Admin: 10/31/17 16:17 Dose: 0.1 mg Dextrose (D50w Vial) 50 ml IV.PUSH UNSCH PRN PRN Reason: PER HYPOGLYCEMIA PROTOCOL Glucagon (Glucagon Inj) 1 mg OTHER PRN PRN PRN Reason: for Hypoglycemia Protocol Levofloxacin/Dextrose (Levaquin 750 Mg Premix Inj) 150 mls @ 100 mls/hr IV.SIG Q24H [facility] Last Admin: 10/31/17 17:03 Dose: 100 mls/hr Metronidazole/Sodium Chloride (Flagyl 500 Mg Inj) 100 mls @ 100 mls/hr IV.SIG Q8H [facility] Last Infusion: 10/31/17 11:12 Dose: Infused Pharmacy Profile Note (Vancomycin Consult Pharmacy) 0 mls @ 0 mls/hr OTHER UNSCH [facility] Sodium Chloride (Ns Inj) 1,000 mls @ 75 mls/hr IV.CONT .[id number] [facility] Last Admin: 10/31/17 17:02 Dose: 75 mls/hr Vancomycin HCl 1,000 mg/ (Sodium Chloride) 250 mls @ 250 mls/hr IV.SIG Q24H [facility] Last Infusion: 10/30/17 23:28 Dose: Infused Insulin Aspart (Novolog Insulin Correctional Sugar Inj) 0 unit SQ ACHS AND 3AM [facility]; Protocol Last Admin: 10/31/17 12:00 Dose: Not Given Lactulose (Lactulose Liq) 30 ml PO DAILY PRN PRN Reason: SEVERE CONSITIPATION Metoprolol Tartrate (Lopressor) 12.5 mg PO HS [facility] Last Admin: 10/30/17 20:17 Dose: 12.5 mg Miscellaneous Information ([facility] Ordered Lab Info) 0 each OTHER ONCE ONE Stop: 11/02/17 21:46 Morphine Sulfate (Morphine Inj) 2 mg IV.PUSH Q3H PRN PRN Reason: PAIN 3-5; IF UABLE TO TAKE PO Morphine Sulfate (Morphine Inj) 4 mg IV.PUSH Q3H PRN PRN Reason: PAIN 6-10;IF UNABLE TO TAKE PO Morphine Sulfate (Morphine Inj) 4 mg IV.PUSH Q3H PRN PRN Reason: BREAKTHROUGH PAIN Naloxone HCl (Narcan Inj) 0.4 mg IV.PUSH UNSCH PRN PRN Reason: SEE LABEL COMMENTS Ondansetron HCl (Zofran Inj) 4 mg IV.PUSH Q6H PRN PRN Reason: NAUSEA OR VOMITING Senna/Docusate Sodium (Mariia-Colace) 1 tab PO BID [facility] Last Admin: 10/31/17 08:48 Dose: 1 tab Sennosides (Senokot) 17.2 mg PO Q12H PRN PRN Reason: Moderate Constipation Sodium Chloride (Sodium Chloride) 1 gm PO BID [facility] Last Admin: 10/31/17 08:48 Dose: 1 gm Thyroid ([place] Thyroid) 30 mg PO BID [facility] Last Admin: 10/31/17 08:48 Dose: 30 mg Vitamin D (Vitamin D3) 2,000 unit PO BID [facility] Last Admin: 10/31/17 08:47 Dose: 2,000 unit Allergies Allergy/AdvReac Type Severity Reaction Status Date / Time ipratropium Allergy Severe MOUTH Verified 10/27/17 17:39 SWELLIN; ALLERGIC TO ALL NUTS latex Allergy Severe CAN'T Verified 10/27/17 17:39 REMEMBER/SEVERE REACTION PER DOCTOR shellfish derived Allergy Severe Anaphylaxis Verified 10/27/17 17:39 lactose Allergy Mild DIGESTION Verified 10/27/17 17:39 PROBLEMS penicillin G Allergy Mild RASH Verified 10/27/17 17:39 iodine Allergy Unknown Anaphylaxis Verified 10/27/17 17:39 Home Medications Medication Instructions Recorded Confirmed Type Jardiance 10 mg DAILY 10/27/17 10/27/17 History Vitamin C 1,000 mg DAILY 10/27/17 10/27/17 History Vitamin D3 Complete 2,000 mcg BID 10/27/17 10/27/17 History aspirin 8 mg DAILY 10/27/17 10/27/17 History metoprolol tartrate 12.5 mg HS 10/27/17 10/27/17 History multivitamin DAILY 10/27/17 History sodium chloride 1 gm BID 10/27/17 10/27/17 History thyroid (pork) 30 mg BID 10/27/17 10/27/17 History Exam Vital signs: Vital Signs 10/30/17 20:00 10/30/17 20:25 10/31/17 00:00 Temperature 98 F 97.5 F L Pulse Rate 95 H 154 H 66 Respiratory Rate 16 18 Blood Pressure 168/94 H 156/82 H Pulse Oximetry 96 94 L 10/31/17 04:00 10/31/17 08:00 10/31/17 12:00 Temperature 98.1 F 98.2 F 98.2 F Pulse Rate 84 77 75 Respiratory Rate 15 20 20 Blood Pressure 166/95 H 191/93 H 191/87 H Pulse Oximetry 94 L 95 98 Intake & Output 10/30/17 10/31/17 10/31/17 18:59 06:59 18:59 Intake Total 200 / 200 740 / 740 1100 / 1100 Balance 200 / 200 740 / 740 1100 / 1100 Weight 56.9 kg Intake: IV 200 / 200 500 / 500 1100 / 1100 NS Inj 1,000 ML @ 75 mls/hr IV. 1000 / 1000 CONT .[id number] [facility] Rx#:[id number] Levaquin 750 mg Premix Inj 150 150 / 150 ML @ 100 mls/hr IV.SIG Q24H [facility] Rx#:[id number] Vancomycin Inj 1,000 MG In NS 250 / 250 Inj 250 ML @ 250 mls/hr IV.SIG Q24H [facility] Rx#:[id number] Flagyl 500 MG Inj 100 ML @ 100 200 / 200 100 / 100 100 / 100 mls/hr IV.SIG Q8H [facility] Rx#: [id number] Oral 240 / 240 Other: # Incontinent Voids 3 5 - Constitutional no acute distress, average body habitus - Routine HEENT Exam Head: Present: normocephalic, atraumatic Eye: Present: EOMI, PERRL ENT: Present: mucous membranes moist, oropharynx clear - Routine Neck Exam Present: supple. Absent: JVD - Routine Respiratory Exam Present: CTA bilaterally. Absent: accessory muscle use, decreased breath sounds , respiratory distress, rhonchi - Routine Cardiovascular Exam Present: RRR, S1, S2. Absent: murmur, gallop, rubs - Routine Abdominal Exam Present: soft, normoactive bowel sounds. Absent: tenderness, distended, organomegaly, mass - Routine Extremities Exam Absent: cyanosis, clubbing, edema Comments: pedal pulses non palpanble L 2nd toe sausage shaped, erythematous, small ulcer on dstal phalanx with no s/ o healing, no granulations hammer toes deformities b/l feet - Routine Skin Exam Present: intact, dry, warm. Absent: rash - Routine Neurological Exam Present: alert, moving all extremities. Absent: oriented X3 (self only) - Routine Psychiatric Exam Present: unable to assess Results - Labs CBC & Chem 7: 10/30/17 13:33 10/31/17 04:59 Labs: Laboratory Results - last 24 hr 10/30/17 10/30/17 10/31/17 17:44 21:45 04:23 Creatinine Estimated GFR POC Glucose 143 H 96 Vancomycin Trough 4.0 L 10/31/17 10/31/17 10/31/17 04:59 08:50 12:51 Creatinine 0.50 Estimated GFR Greater than 89 POC Glucose 83 108 Vancomycin Trough - Imaging Impressions Foot MRI 10/27/17 17:28 CONCLUSION: 1. Osteomyelitis of the second toe, predominantly involving the proximal and middle phalanx. Surrounding cellulitis. Assessment and Plan - Plan DFI, osteomyelitis 2nd L toe Underlying PVD cont vancomycin dc levaquine start azactam consult vascular: neither toe amputatin nor antibiotic s will result in good outcome without correction if feasible of underlying vascular issues dalia HAND
[2017-10-31] MEDS: Vancomycin Inj 1,000 MG in Sodium Chlor 0.9% Inj 250 ML IV.SIG SCH (21:08)
[2017-10-31] MEDS: Acetaminophen 325 MG Tablet PO PRN (21:09)
[2017-10-31] MEDS: Metoprolol Tartrate 25 MG Tablet PO SCH (21:09)
[2017-11-01] MEDS ORDERED: Sodium Chloride 0.9% 2 ML Flush PRN IV.FLUSH (00:41)
[2017-11-01] MEDS: Aztreonam Inj 2 GM in Sodium Chloride 0.9% Inj 100 ML IV.SIG SCH ×3 (02:15→17:59)
[2017-11-01] MEDS: Insulin NovoLOG Aspart Correctional Sugar Inj SQ SCH ×5 (03:49→22:01)
[2017-11-01] MEDS: Sod Chloride 0.9% Inj 1,000 ML IV.CONT SCH ×2 (05:41→18:40)
--- NOTE | 2017-11-01 08:12 | P.PNFP ---
Subjective Interval history: Seen this am Afebrile, denies cp, sob Dressing C/D/I left foot Results - Labs Result diagrams: 10/30/17 13:33 10/31/17 04:59 Abnormal lab results 10/31/17 Range/Units 18:24 POC Glucose 122 H (68-110) mg/dl Laboratory Results - last 12 hr 10/31/17 11/01/17 21:08 01:47 POC Glucose 99 87 - Imaging Impressions Foot MRI 10/27/17 17:28 CONCLUSION: 1. Osteomyelitis of the second toe, predominantly involving the proximal and middle phalanx. Surrounding cellulitis. Physical Exam Vital signs: Vital Signs 10/31/17 12:00 10/31/17 16:00 10/31/17 20:00 Temperature 98.2 F 98.0 F 97.3 F L Pulse Rate 72 79 93 H Respiratory Rate 20 20 21 Blood Pressure 191/87 H 199/95 H 168/82 H Pulse Oximetry 98 95 97 11/01/17 00:00 11/01/17 03:59 11/01/17 04:00 Temperature 97.3 F L 97.1 F L Pulse Rate 68 68 91 H Respiratory Rate 20 20 Blood Pressure 153/72 H 146/68 H Pulse Oximetry 97 96 Intake & Output 10/31/17 11/01/17 11/01/17 18:59 06:59 18:59 Intake Total 1100 / 1100 1670 / 1670 Balance 1100 / 1100 1670 / 1670 Weight 56.2 kg Intake: IV 1100 / 1100 1550 / 1550 NS Inj 1,000 ML @ 75 mls/hr IV. 1000 / 1000 1000 / 1000 CONT .[id number] [facility] Rx#:[id number] Azactam Inj 2 GM In NS Inj 100 100 / 100 ML @ 200 mls/hr IV.SIG Q8H [facility] Rx#:[id number] Vancomycin Inj 1,000 MG In NS 250 / 250 Inj 250 ML @ 250 mls/hr IV.SIG Q24H [facility] Rx#:[id number] Flagyl 500 MG Inj 100 ML @ 100 100 / 100 200 / 200 mls/hr IV.SIG Q8H [facility] Rx#: [id number] Oral 120 / 120 Other: # Voids 2 # Incontinent Voids 2 - Constitutional no acute distress - Routine HEENT Exam Eye: Present: PERRL ENT: Present: mucous membranes moist - Routine Neck Exam Present: supple - Routine Respiratory Exam Present: CTA bilaterally - Routine Cardiovascular Exam Present: S1, S2 - Routine Abdominal Exam Present: soft, normoactive bowel sounds - Routine Extremities Exam Present: pulses intact Comments: left pedal pulse faint, marked w. pen - Routine Skin Exam Present: dry, warm - Routine Psychiatric Exam Present: cooperative Assessment and Plan - Assessment (1) Type 2 diabetes mellitus Code(s): E11.9 - Type 2 diabetes mellitus without complications Status: Chronic Plan: Cont home regimen and monitor closely and adjust therapy as needed. (2) Hypertension associated with diabetes Code(s): E11.59 - Type 2 diabetes mellitus with other circulatory complications ; I10 - Essential (primary) hypertension Status: Chronic Plan: Cont home meds and monitor. Adjust therapy as needed to maintain control. (3) Hypothyroid Code(s): E03.9 - Hypothyroidism, unspecified Status: Acute Plan: Cont home meds and F/U. - Assessment and Plan Osteo left foot sent to hospital per POD instructions. On antibiotics and POD suggeests decision per family/patient regarding amputation of digit vs tube maker antibiotics. 10/30/17- Patient voices that they have decided to go with 6 weeks of antibiotics , as wound is responding per podiatry notes. Will plan for DC once Antibiotics arranges. 10/31/17- Uneventful night reported, VSS afebrile. BS <150 last 24h. Will need 6 wks of antibiotics, currently on Levaquin, Flagyl and vanco. Will consult ID for further recommendations. She resides in [place], may need snf placement for IV antibiotics. Will await for ID rec's. Discussed with Case art and RN 11/01/17- See by ID recommends vascular consult, VSS afebrile. Bs well controlled.Levaquin DC, cont vanco start azactam. will cont to follow rec's PT activity ordered. (1) Type 2 diabetes mellitus Qualifiers: Diabetes mellitus complication status: with skin complications Diabetes mellitus complication detail: with foot ulcer
[2017-11-01] MEDS: Ascorbic Acid 500 MG Tablet PO SCH (09:13)
[2017-11-01] MEDS: Sodium Chloride 1 GM Tablet PO SCH ×2 (09:13→22:07)
[2017-11-01] MEDS: Senna/Docusate Sodium 8.6/50 MG Tablet PO SCH ×2 (09:13→22:08)
[2017-11-01] MEDS: Sodium Chloride 0.9% 2 ML Flush BID IV.FLUSH SCH ×2 (09:14→22:31)
[2017-11-01] MEDS ORDERED: MORPHINE SULFATE 10 MG/10 ML ONE (12:49)
[2017-11-01] MEDS ORDERED: Tetracaine PF 1% Inj 20 MG/2 ML Ampul ONE (13:01)
[2017-11-01] MEDS: Vancomycin Inj 1,000 MG in Sodium Chlor 0.9% Inj 250 ML IV.SIG SCH (22:08)
[2017-11-01] MEDS: Metoprolol Tartrate 25 MG Tablet PO SCH (22:31)
[2017-11-02] MEDS: Aztreonam Inj 2 GM in Sodium Chloride 0.9% Inj 100 ML IV.SIG SCH ×3 (00:29→17:00)
[2017-11-02] MEDS: Insulin NovoLOG Aspart Correctional Sugar Inj SQ SCH ×5 (04:43→20:24)
[2017-11-02 07:52] LABS: Baso % (Auto) 0.2 % (0.0-2.0); Eos # (Auto) 0.1 th/mm3 (0.0-0.4); Hematocrit 42.6 % (35.0-46.0); Hemoglobin 14.2 gm/dL (11.6-15.3); Lymph # (Auto) 0.7 th/mm3 (1.0-4.8); Lymph % (Auto) 10.3 % (9.0-44.0); Mean Corpuscular HGB Conc 33.4 % (32.0-36.0); Mean Corpuscular Hemoglobin 26.5 pg (27.0-34.0); Mean Corpuscular Volume 79.2 fL (80.0-100.0); Mean Platelet Volume 7.2 fL (7.0-11.0); Mono # (Auto) 0.6 th/mm3 (0.0-0.9); Mono % (Auto) 8.3 % (0.0-8.0); Neut # (Auto) 5.5 th/mm3 (1.8-7.7); Neut % (Auto) 80.2 % (16.0-70.0); Platelet Count 208 th/mm3 (150-450); Red Blood Count 5.38 mil/mm3 (4.00-5.30); Red Cell Distribution Width 14.7 % (11.6-17.2); White Blood Count 6.9 th/mm3 (4.0-11.0)
[2017-11-02] MEDS: Sod Chloride 0.9% Inj 1,000 ML IV.CONT SCH ×2 (08:06→21:30)
[2017-11-02] MEDS: Senna/Docusate Sodium 8.6/50 MG Tablet PO SCH ×2 (08:07→20:25)
[2017-11-02] MEDS: Sodium Chloride 0.9% 2 ML Flush BID IV.FLUSH SCH ×2 (08:07→20:26)
[2017-11-02] MEDS: Sodium Chloride 1 GM Tablet PO SCH ×2 (08:07→20:25)
[2017-11-02] MEDS: Ascorbic Acid 500 MG Tablet PO SCH (08:07)
[2017-11-02 08:16] LABS: Anion Gap 9 meq/L (5-15); Blood Urea Nitrogen 7 mg/dL (7-18); Calcium 8.4 mg/dL (8.5-10.1); Carbon Dioxide 28.2 meq/L (21.0-32.0); Chloride 95 meq/L (98-107); Glomerular Filtration Rate Greater Than 89 mL/min (>89); Glucose,Random 118 mg/dL (74-106); Sodium 132 meq/L (136-145)
--- NOTE | 2017-11-02 08:41 | MB ---
cc: Heather Branch MD DATE: 11/01/2017 CONSULTING PHYSICIAN: Dr. Branch. REASON FOR CONSULTATION: Ischemia of the left foot and left second toe gangrenous ulcer. HISTORY OF PRESENT DISEASE: This is an 87-year-old lady who is demented and significant functional decline presents to the hospital with worsening ulceration of the left second toe; swelling and redness for about a week over the dorsum of the left foot; question any vascular implications. In the process of workup, the patient had an arterial study with 0.3 on the right and 0.4 on the left RED. PAST MEDICAL HISTORY: Diabetes mellitus, hypertension, rheumatoid arthritis, advanced dementia. PAST SURGICAL HISTORY: Bilateral knee surgery and right hip surgery. MEDICATIONS: Can be found in the record. SOCIAL HISTORY: The patient does not smoke, does not drink. She is an [facility] resident; is advanced stages of dementia and functional decline; essentially bedridden or able to sit, but not able to walk. PHYSICAL EXAMINATION: GENERAL: Reveals an unfortunate elderly lady. HEENT: Normocephalic. No trauma to the head. Pupils equal, reactive. Extraocular muscles appear to be intact. The patient is talking, but is very hard to understand and sentences are incomplete. NECK: Bilateral carotid pulses. No bruits. CHEST: Bilateral breath sounds, decreased at the lower lung field consistent with a senile emphysema. HEART: Regular rate and rhythm. ABDOMEN: Soft. Active bowel sounds. No rebound, masses or guarding. EXTREMITIES: The patient has palpable femoral pulses, dopplerable popliteal pulses very weak; on the right side posterior tibial dopplerable; on the left side weak posterior tibial dopplerable. Feet that essentially warm. There is indeed gangrene of the second toe on the left foot with ulceration. IMPRESSION AND RECOMMENDATIONS: The patient with advanced stage of dementia and vascular ultrasound ankle brachial indexes consistent with diffuse vascular disease. In better circumstances this patient would be a candidate for angiogram and some sort of endovascular possible intervention. In this particular situation, this lady is a functional decline, is bedridden and therefore she will be subjected to a minimum, if any, procedures. I agree with toe amputation, but further treatment should be conservative and the patient will not need an angiogram; she should not be subjected to surgical interventions other than most emergent things. I thank you very much for referral. MD EVANGELINA Alcantar/madeline/nicolas , 03:29 PM , 03:37 PM
--- NOTE | 2017-11-02 08:54 | P.PNFP ---
Subjective Interval history: Seen this am she is alert appears comfortable Dressing to Left foot C/D/I Results - Labs Result diagrams: 11/02/17 07:05 11/02/17 07:05 Abnormal lab results 11/01/17 11/02/17 11/02/17 Range/Units 20:10 04:42 07:05 RBC 5.38 H (4.00-5.30) mil/mm3 MCV 79.2 L (80.0-100.0) fL MCH 26.5 L (27.0-34.0) pg Neut % (Auto) 80.2 H (16.0-70.0) % Carbon % (Auto) 8.3 H (0.0-8.0) % Lymph # (Auto) 0.7 L (1.0-4.8) th/mm3 Sodium (136-145) meq/L Potassium (3.5-5.1) meq/L Chloride (98-107) meq/L Creatinine (0.50-1.00) mg/dL POC Glucose 140 H 113 H (68-110) mg/dl Random Glucose (74-106) mg/dL Calcium (8.5-10.1) mg/dL 11/02/17 11/02/17 Range/Units 07:05 07:28 RBC (4.00-5.30) mil/mm3 MCV (80.0-100.0) fL MCH (27.0-34.0) pg Neut % (Auto) (16.0-70.0) % Carbon % (Auto) (0.0-8.0) % Lymph # (Auto) (1.0-4.8) th/mm3 Sodium 132 L (136-145) meq/L Potassium 3.0 L (3.5-5.1) meq/L Chloride 95 L (98-107) meq/L Creatinine 0.39 L (0.50-1.00) mg/dL POC Glucose 119 H (68-110) mg/dl Random Glucose 118 H (74-106) mg/dL Calcium 8.4 L (8.5-10.1) mg/dL Short CBC 11/02/17 Range/Units 07:05 WBC 6.9 (4.0-11.0) th/mm3 Hgb 14.2 (11.6-15.3) gm/dL Hct 42.6 (35.0-46.0) % Plt Count 208 (150-450) th/mm3 BMP 11/02/17 07:05 Sodium 132 L Potassium 3.0 L Chloride 95 L Carbon Dioxide 28.2 BUN 7 Creatinine 0.39 L Calcium 8.4 L - Imaging Impressions Foot MRI 10/27/17 00:00 CONCLUSION: 1. Osteomyelitis of the second toe, predominantly involving the proximal and middle phalanx. Surrounding cellulitis. Foot MRI 10/27/17 17:28 CONCLUSION: 1. Osteomyelitis of the second toe, predominantly involving the proximal and middle phalanx. Surrounding cellulitis. Physical Exam Vital signs: Vital Signs 11/01/17 12:00 11/01/17 16:00 11/01/17 20:00 Temperature 98.4 F 97.8 F 98.1 F Pulse Rate 79 85 90 Respiratory Rate 20 20 20 Blood Pressure 179/97 H 188/95 H 142/80 H Pulse Oximetry 96 98 97 11/01/17 20:19 11/01/17 23:49 11/02/17 00:00 Temperature 97.8 F Pulse Rate 89 98 H 92 H Respiratory Rate 20 Blood Pressure Pulse Oximetry 96 11/02/17 00:38 11/02/17 03:56 11/02/17 04:00 Temperature 98.0 F Pulse Rate 76 84 Respiratory Rate 20 Blood Pressure 196/98 H Pulse Oximetry 96 11/02/17 04:50 Temperature Pulse Rate Respiratory Rate Blood Pressure 198/96 H Pulse Oximetry Intake & Output 11/01/17 11/02/17 11/02/17 18:59 06:59 18:59 Intake Total 1300 / 1300 550 / 550 1000 / 1000 Balance 1300 / 1300 550 / 550 1000 / 1000 Weight 56.1 kg Intake: IV 1300 / 1300 550 / 550 1000 / 1000 NS Inj 1,000 ML @ 75 mls/hr IV. 1000 / 1000 1000 / 1000 CONT .[id number] [facility] Rx#:[id number] Azactam Inj 2 GM In NS Inj 100 200 / 200 100 / 100 ML @ 200 mls/hr IV.SIG Q8H [facility] Rx#:[id number] Vancomycin Inj 1,000 MG In NS 250 / 250 Inj 250 ML @ 250 mls/hr IV.SIG Q24H [facility] Rx#:[id number] Flagyl 500 MG Inj 100 ML @ 100 100 / 100 200 / 200 mls/hr IV.SIG Q8H [facility] Rx#: [id number] Other: # Incontinent Voids 4 - Constitutional no acute distress - Routine HEENT Exam Eye: Present: PERRL ENT: Present: mucous membranes moist - Routine Neck Exam Present: supple - Routine Respiratory Exam Present: CTA bilaterally - Routine Cardiovascular Exam Present: S1, S2 - Routine Abdominal Exam Present: soft, normoactive bowel sounds - Routine Extremities Exam Comments: left foot faint pedal pulse warm - Routine Skin Exam Present: dry, warm - Routine Neurological Exam Present: alert - Routine Psychiatric Exam Present: cooperative Assessment and Plan - Assessment (1) Type 2 diabetes mellitus Code(s): E11.9 - Type 2 diabetes mellitus without complications Status: Chronic Plan: Cont home regimen and monitor closely and adjust therapy as needed. (2) Hypertension associated with diabetes Code(s): E11.59 - Type 2 diabetes mellitus with other circulatory complications ; I10 - Essential (primary) hypertension Status: Chronic Plan: Cont home meds and monitor. Adjust therapy as needed to maintain control. (3) Hypothyroid Code(s): E03.9 - Hypothyroidism, unspecified Status: Acute Plan: Cont home meds and F/U. - Assessment and Plan Osteo left foot sent to hospital per POD instructions. 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 10/30/17- Patient voices that they have decided to go with 6 weeks of antibiotics , as wound is responding per podiatry notes. Will plan for DC once Antibiotics arranges. 10/31/17- Uneventful night reported, VSS afebrile. BS <150 last 24h. Will need 6 wks of antibiotics, currently on Levaquin, Flagyl and vanco. Will consult ID for further recommendations. [facility], may need snf placement for IV antibiotics. Will await for ID rec's. Discussed with Case art and RN 11/01/17- See by ID recommends vascular consult, VSS afebrile. Bs well controlled.Levaquin DC, cont vanco start azactam. will cont to follow rec's PT activity ordered. 11/02/17- Seen this am she is alert, labs show Potassium 3.0, will replace. Vss afebrile. Seen by vascular, he does not recommends conservative management , with only emergent surgical intervention related to functional decline. Family to decide between amputation or iv antibiotics. Will likely beed snf placement for deconditioning. (1) Type 2 diabetes mellitus Qualifiers: Diabetes mellitus complication status: with skin complications Diabetes mellitus complication detail: with foot ulcer
[2017-11-02] MEDS ORDERED: amLODIPine 10 MG Tablet PO ONE (18:15)
[2017-11-02] MEDS: Metoprolol Tartrate 25 MG Tablet PO SCH (20:25)
--- NOTE | 2017-11-02 21:02 | P.PNVS ---
Subjective Subjective/Hospital Course: 11/02/2017 As noted in my original consultation, the patient with advanced stage of dementia and vascular ultrasound ankle brachial indexes consistent with diffuse vascular disease. In better circumstances this patient would be a candidate for angiogram and some sort of endovascular possible intervention. In this particular situation, this lady is a functional decline, is bedridden and therefore she will be subjected to a minimum, if any, procedures. I agree with toe amputation, but further treatment should be conservative and the patient will not need an angiogram; she should not be subjected to surgical interventions other than most emergent lifesaving issues Objective Vital Signs / I&O: Vital Signs 11/01/17 23:49 11/02/17 00:00 11/02/17 00:38 Temperature 97.8 F Pulse Rate 98 H 92 H Respiratory Rate 20 Blood Pressure 196/98 H Pulse Oximetry 96 11/02/17 03:56 11/02/17 04:00 11/02/17 04:50 Temperature 98.0 F Pulse Rate 76 84 Respiratory Rate 20 Blood Pressure 198/96 H Pulse Oximetry 96 11/02/17 08:00 11/02/17 12:00 11/02/17 16:00 Temperature 97.9 F 97.8 F 97.9 F Pulse Rate 90 73 90 Respiratory Rate 18 18 18 Blood Pressure 194/93 H 176/92 H 208/95 H Pulse Oximetry 94 L 95 92 L Intake & Output 11/02/17 11/02/17 11/03/17 06:59 18:59 06:59 Intake Total 550 / 550 1420 / 1420 100 / 100 Balance 550 / 550 1420 / 1420 100 / 100 Weight 56.1 kg Intake: IV 550 / 550 1300 / 1300 100 / 100 NS Inj 1,000 ML @ 75 mls/hr IV. 1000 / 1000 CONT .[id number] [facility] Rx#:[id number] Azactam Inj 2 GM In NS Inj 100 100 / 100 200 / 200 ML @ 200 mls/hr IV.SIG Q8H [facility] Rx#:[id number] Vancomycin Inj 1,000 MG In NS 250 / 250 Inj 250 ML @ 250 mls/hr IV.SIG Q24H [facility] Rx#:[id number] Flagyl 500 MG Inj 100 ML @ 100 200 / 200 100 / 100 100 / 100 mls/hr IV.SIG Q8H [facility] Rx#: [id number] Oral 120 / 120 Other: # Voids 1 # Bowel Movements 1 Laboratory Results - last 24 hr 11/02/17 11/02/17 11/02/17 04:42 07:05 07:05 WBC 6.9 RBC 5.38 H Hgb 14.2 Hct 42.6 MCV 79.2 L MCH 26.5 L MCHC 33.4 RDW 14.7 Plt Count 208 MPV 7.2 Neut % (Auto) 80.2 H Lymph % (Auto) 10.3 Evans % (Auto) 8.3 H Eos % (Auto) 1.0 Baso % (Auto) 0.2 Neut # (Auto) 5.5 Lymph # (Auto) 0.7 L Evans # (Auto) 0.6 Eos # (Auto) 0.1 Baso # (Auto) 0.0 WBC Differential . Differential Comment Auto diff final Sodium 132 L Potassium 3.0 L Chloride 95 L Carbon Dioxide 28.2 Anion Gap 9 BUN 7 Creatinine 0.39 L Estimated GFR Greater than 89 POC Glucose 113 H Random Glucose 118 H Calcium 8.4 L 11/02/17 11/02/17 11/02/17 07:28 11:52 16:59 WBC RBC Hgb Hct MCV MCH MCHC RDW Plt Count MPV Neut % (Auto) Lymph % (Auto) Evans % (Auto) Eos % (Auto) Baso % (Auto) Neut # (Auto) Lymph # (Auto) Evans # (Auto) Eos # (Auto) Baso # (Auto) WBC Differential Differential Comment Sodium Potassium Chloride Carbon Dioxide Anion Gap BUN Creatinine Estimated GFR POC Glucose 119 H 120 H 118 H Random Glucose Calcium 11/02/17 20:23 WBC RBC Hgb Hct MCV MCH MCHC RDW Plt Count MPV Neut % (Auto) Lymph % (Auto) Evans % (Auto) Eos % (Auto) Baso % (Auto) Neut # (Auto) Lymph # (Auto) Evans # (Auto) Eos # (Auto) Baso # (Auto) WBC Differential Differential Comment Sodium Potassium Chloride Carbon Dioxide Anion Gap BUN Creatinine Estimated GFR POC Glucose 139 H Random Glucose Calcium Impressions Foot MRI 10/27/17 00:00 CONCLUSION: 1. Osteomyelitis of the second toe, predominantly involving the proximal and middle phalanx. Surrounding cellulitis.
[2017-11-02] MEDS ORDERED: Pharmacy Ordered Lab Info OTHER ONE (21:45)
[2017-11-02] MEDS: Vancomycin Inj 1,000 MG in Sodium Chlor 0.9% Inj 250 ML IV.SIG SCH (23:46)
[2017-11-03] MEDS: Aztreonam Inj 2 GM in Sodium Chloride 0.9% Inj 100 ML IV.SIG SCH ×3 (01:39→16:38)
[2017-11-03] MEDS: Insulin NovoLOG Aspart Correctional Sugar Inj SQ SCH ×5 (03:58→20:28)
[2017-11-03] MEDS: Senna/Docusate Sodium 8.6/50 MG Tablet PO SCH ×2 (08:35→20:29)
[2017-11-03] MEDS: amLODIPine 10 MG Tablet PO SCH (08:36)
[2017-11-03] MEDS: Acetaminophen 325 MG Tablet PO PRN (08:38)
[2017-11-03] MEDS: Sodium Chloride 1 GM Tablet PO SCH ×2 (08:38→20:29)
[2017-11-03] MEDS: Ascorbic Acid 500 MG Tablet PO SCH (08:39)
[2017-11-03] MEDS: Sodium Chloride 0.9% 2 ML Flush BID IV.FLUSH SCH ×2 (08:42→20:28)
[2017-11-03] MEDS ORDERED: Pharmacy Ordered Lab Info OTHER ONE (09:00)
[2017-11-03] MEDS: Sod Chloride 0.9% Inj 1,000 ML IV.CONT SCH (10:13)
--- NOTE | 2017-11-03 10:13 | P.PNFP ---
Subjective Interval history: Seen this am complains of all over generalized pain Nurse to give Tylenol BP elevated Denies CP, SOB Dsg to left foot C/D/I Results - Labs Result diagrams: 11/02/17 07:05 11/02/17 07:05 Abnormal lab results 11/02/17 11/02/17 11/02/17 Range/Units 11:52 16:59 20:23 POC Glucose 120 H 118 H 139 H (68-110) mg/dl Physical Exam Vital signs: Vital Signs 11/02/17 12:00 11/02/17 16:00 11/02/17 20:00 Temperature 97.8 F 97.9 F 98.3 F Pulse Rate 73 90 91 H Respiratory Rate 18 18 24 Blood Pressure 176/92 H 208/95 H 187/88 H Pulse Oximetry 95 92 L 96 11/02/17 23:58 11/03/17 00:00 11/03/17 04:00 Temperature 98.2 F 97.8 F Pulse Rate 70 76 58 L Respiratory Rate 22 20 Blood Pressure 160/78 H 178/89 H Pulse Oximetry 95 97 11/03/17 04:03 Temperature Pulse Rate 83 Respiratory Rate Blood Pressure Pulse Oximetry Intake & Output 11/02/17 11/03/17 11/03/17 18:59 06:59 18:59 Intake Total 1420 / 1420 1790 / 1790 100 / 100 Output Total 400 / 400 Balance 1420 / 1420 1390 / 1390 100 / 100 Weight 56.1 kg Intake: IV 1300 / 1300 1550 / 1550 100 / 100 NS Inj 1,000 ML @ 75 mls/hr IV. 1000 / 1000 1000 / 1000 CONT .[id number] [facility] Rx#:[id number] Azactam Inj 2 GM In NS Inj 100 200 / 200 100 / 100 100 / 100 ML @ 200 mls/hr IV.SIG Q8H [facility] Rx#:[id number] Vancomycin Inj 1,000 MG In NS 250 / 250 Inj 250 ML @ 250 mls/hr IV.SIG Q24H [facility] Rx#:[id number] Flagyl 500 MG Inj 100 ML @ 100 100 / 100 200 / 200 mls/hr IV.SIG Q8H [facility] Rx#: [id number] Oral 120 / 120 240 / 240 Output: Urine 400 / 400 Other: # Voids 1 # Bowel Movements 1 - Routine HEENT Exam Head: Present: normocephalic Eye: Present: EOMI ENT: Present: mucous membranes moist - Routine Respiratory Exam Present: CTA bilaterally - Routine Cardiovascular Exam Present: S1, S2 - Routine Abdominal Exam Present: soft, normoactive bowel sounds - Routine Skin Exam Present: dry, warm - Routine Neurological Exam Present: alert Assessment and Plan - Assessment (1) Type 2 diabetes mellitus Code(s): E11.9 - Type 2 diabetes mellitus without complications Status: Chronic Plan: Cont home regimen and monitor closely and adjust therapy as needed. (2) Hypertension associated with diabetes Code(s): E11.59 - Type 2 diabetes mellitus with other circulatory complications ; I10 - Essential (primary) hypertension Status: Chronic Plan: Cont home meds and monitor. Adjust therapy as needed to maintain control. (3) Hypothyroid Code(s): E03.9 - Hypothyroidism, unspecified Status: Acute Plan: Cont home meds and F/U. - Assessment and Plan Osteo left foot sent to hospital per POD instructions. 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 10/30/17- Patient voices that they have decided to go with 6 weeks of antibiotics , as wound is responding per podiatry notes. Will plan for DC once Antibiotics arranges. 10/31/17- Uneventful night reported, VSS afebrile. BS <150 last 24h. Will need 6 wks of antibiotics, currently on Levaquin, Flagyl and vanco. Will consult ID for further recommendations. She resides in [facility], may need snf placement for IV antibiotics. Will await for ID rec's. Discussed with Case art and RN 11/01/17- See by ID recommends vascular consult, VSS afebrile. Bs well controlled.Levaquin DC, cont vanco start azactam. will cont to follow rec's PT activity ordered. 11/02/17- Seen this am she is alert, labs show Potassium 3.0, will replace. Vss afebrile. Seen by vascular, he does not recommends conservative management , with only emergent surgical intervention related to functional decline. Family to decide between amputation or iv antibiotics. Will likely beed snf placement for deconditioning. 11/03/17- call placed to daughter SHANTI shahid to determine how to proceed. Will either need amputation or jail antibiotics in snf. BP has been elevated in 180-190 yesterday amlodipine added 10 mg qd, b/p in 160- 170, will cont to monitor. K+ replaced yesterday, bmp pending this am. Cont to monitor (1) Type 2 diabetes mellitus Qualifiers: Diabetes mellitus complication status: with skin complications Diabetes mellitus complication detail: with foot ulcer
[2017-11-03 10:30] LABS: Anion Gap 11 meq/L (5-15); Blood Urea Nitrogen 10 mg/dL (7-18); Calcium 7.9 mg/dL (8.5-10.1); Carbon Dioxide 23.5 meq/L (21.0-32.0); Chloride 99 meq/L (98-107); Glomerular Filtration Rate Greater Than 89 mL/min (>89); Glucose,Random 137 mg/dL (74-106); Potassium 3.4 meq/L (3.5-5.1)
[2017-11-03 10:45] LABS: Sodium 133 meq/L (136-145)
[2017-11-03] MEDS: Vancomycin Inj 1,000 MG in Sodium Chlor 0.9% Inj 250 ML IV.SIG SCH (18:37)
--- NOTE | 2017-11-03 19:05 | P.PNID ---
Subjective Remarks: Pt was seen by Dr Singh ([facility]) who recommended against vascular w/u and surgeries [place] daughter's christina on toe amputation conscent afebrile, no new problems Antibiotics: vanco azactam flagyl Allergies/Adverse Reactions: Allergies ipratropium Allergy (Severe, Verified 10/27/17 17:39) MOUTH SWELLIN; ALLERGIC TO ALL NUTS latex Allergy (Severe, Verified 10/27/17 17:39) CAN'T REMEMBER/SEVERE REACTION PER DOCTOR shellfish derived Allergy (Severe, Verified 10/27/17 17:39) Anaphylaxis lactose Allergy (Mild, Verified 10/27/17 17:39) DIGESTION PROBLEMS penicillin G Allergy (Mild, Verified 10/27/17 17:39) RASH iodine Allergy (Unknown, Verified 10/27/17 17:39) Anaphylaxis Objective Vital Signs 11/02/17 20:00 11/02/17 23:58 11/03/17 00:00 Temperature 98.3 F 98.2 F Pulse Rate 91 H 70 76 Respiratory Rate 24 22 Blood Pressure 187/88 H 160/78 H Pulse Oximetry 96 95 11/03/17 04:00 11/03/17 04:03 11/03/17 08:00 Temperature 97.8 F 97.7 F Pulse Rate 58 L 83 79 Respiratory Rate 20 18 Blood Pressure 178/89 H 154/76 H Pulse Oximetry 97 95 11/03/17 12:00 11/03/17 16:00 Temperature 97.6 F 97.5 F L Pulse Rate 76 87 Respiratory Rate 18 18 Blood Pressure 150/73 H 147/76 H Pulse Oximetry 96 95 Intake & Output 11/02/17 11/03/17 11/03/17 18:59 06:59 18:59 Intake Total 1420 / 1420 1790 / 1790 1500 / 1500 Output Total 400 / 400 425 / 425 Balance 1420 / 1420 1390 / 1390 1075 / 1075 Weight 56.1 kg Intake: IV 1300 / 1300 1550 / 1550 1380 / 1380 NS Inj 1,000 ML @ 75 mls/hr IV. 1000 / 1000 1000 / 1000 980 / 980 CONT .[id number] [facility] Rx#:[id number] Azactam Inj 2 GM In NS Inj 100 200 / 200 100 / 100 200 / 200 ML @ 200 mls/hr IV.SIG Q8H [facility] Rx#:[id number] Vancomycin Inj 1,000 MG In NS 250 / 250 Inj 250 ML @ 250 mls/hr IV.SIG Q24H [facility] Rx#:[id number] Flagyl 500 MG Inj 100 ML @ 100 100 / 100 200 / 200 200 / 200 mls/hr IV.SIG Q8H [facility] Rx#: [id number] Oral 120 / 120 240 / 240 120 / 120 Output: Urine 400 / 400 425 / 425 Other: # Voids 1 Date of Last Bowel Movement 10/28/17 # Bowel Movements 1 1 10/27/17 17:30 Blood - Peripheral Aerobic Blood Culture - Final No growth in 5 days 10/27/17 17:30 Blood - Peripheral Anaerobic Blood Culture - Final No growth in 5 days 10/27/17 17:35 Blood - Peripheral Aerobic Blood Culture - Final No growth in 5 days 10/27/17 17:35 Blood - Peripheral Anaerobic Blood Culture - Final No growth in 5 days Lab - Hematology Results 11/02/17 07:05 WBC 6.9 RBC 5.38 H Hgb 14.2 Hct 42.6 MCV 79.2 L MCH 26.5 L MCHC 33.4 RDW 14.7 Plt Count 208 MPV 7.2 Neut % (Auto) 80.2 H Lymph % (Auto) 10.3 Will % (Auto) 8.3 H Eos % (Auto) 1.0 Baso % (Auto) 0.2 Neut # (Auto) 5.5 Lymph # (Auto) 0.7 L Will # (Auto) 0.6 Eos # (Auto) 0.1 Baso # (Auto) 0.0 WBC Differential . Differential Comment Auto diff final Lab - Chemistry Results 11/01/17 11/02/17 11/02/17 20:10 04:42 07:05 Sodium 132 L Potassium 3.0 L Chloride 95 L Carbon Dioxide 28.2 Anion Gap 9 BUN 7 Creatinine 0.39 L Estimated GFR Greater than 89 POC Glucose 140 H 113 H Random Glucose 118 H Calcium 8.4 L 11/02/17 11/02/17 11/02/17 07:28 11:52 16:59 Sodium Potassium Chloride Carbon Dioxide Anion Gap BUN Creatinine Estimated GFR POC Glucose 119 H 120 H 118 H Random Glucose Calcium 11/02/17 11/03/17 11/03/17 20:23 09:37 12:02 Sodium 133 L Potassium 3.4 L Chloride 99 Carbon Dioxide 23.5 Anion Gap 11 BUN 10 Creatinine 0.43 L Estimated GFR Greater than 89 POC Glucose 139 H 139 H Random Glucose 137 H Calcium 7.9 L 11/03/17 17:10 Sodium Potassium Chloride Carbon Dioxide Anion Gap BUN Creatinine Estimated GFR POC Glucose 110 Random Glucose Calcium Imaging: ITS Impressions Extremity Arterial Study 10/27/17 00:00 CONCLUSION: 1. Significant vascular disease TBI 0.4 on the right and 0.3 and the left. 2. RED 0.8 on the right and 0.8 on the left. Foot MRI 10/27/17 17:28 CONCLUSION: 1. Osteomyelitis of the second toe, predominantly involving the proximal and middle phalanx. Surrounding cellulitis. Chest X-Ray 10/27/17 17:30 CONCLUSION: Minimal basilar atelectasis or scarring. No effusion or pneumothorax. Physical Exam: GENERAL: NAD SKIN: Warm and dry. NO rash CARDIOVASCULAR: Regular rate and rhythm. RESPIRATORY: No accessory muscle use. Clear to auscultation. Breath sounds equal bilaterally. GASTROINTESTINAL: Abdomen soft, non-tender, nondistended. Hepatic and splenic margins not palpable. MUSCULOSKELETAL: Extremities without clubbing, cyanosis, or edema. No obvious deformities. L foot with dressing in place NEUROLOGICAL: awake, confused. speech non coherent PSYCHIATRIC: unable to assess Assessment and Plan - Plan DFI, osteomyelitis 2nd L toe Underlying PVD cont vancomycin cont azactam, flagyl With uncorrected vascyular status both abx treatmetn and toe amputation might not work will follow with podiatry on final decision dalia HAND
[2017-11-03] MEDS: Metoprolol Tartrate 25 MG Tablet PO SCH (20:28)
[2017-11-04] MEDS: Aztreonam Inj 2 GM in Sodium Chloride 0.9% Inj 100 ML IV.SIG SCH ×3 (00:04→17:34)
[2017-11-04] MEDS: Sod Chloride 0.9% Inj 1,000 ML IV.CONT SCH ×4 (00:05→20:38)
[2017-11-04] MEDS: Insulin NovoLOG Aspart Correctional Sugar Inj SQ SCH ×5 (02:44→20:39)
[2017-11-04] MEDS: Acetaminophen 325 MG Tablet PO PRN ×2 (03:00→15:31)
[2017-11-04] MEDS: Ascorbic Acid 500 MG Tablet PO SCH (09:30)
[2017-11-04] MEDS: Senna/Docusate Sodium 8.6/50 MG Tablet PO SCH ×2 (09:30→20:34)
[2017-11-04] MEDS: Sodium Chloride 1 GM Tablet PO SCH ×2 (09:30→20:33)
[2017-11-04] MEDS: amLODIPine 10 MG Tablet PO SCH (09:30)
[2017-11-04] MEDS: Sodium Chloride 0.9% 2 ML Flush BID IV.FLUSH SCH ×2 (10:07→20:34)
--- NOTE | 2017-11-04 10:35 | P.PNFP ---
Subjective Interval history: Patient resting comfortably and remains pleasantly confused and without complaints Results - Labs Result diagrams: 11/02/17 07:05 11/03/17 09:37 Abnormal lab results 11/03/17 11/03/17 Range/Units 09:37 12:02 Sodium 133 L (136-145) meq/L Potassium 3.4 L (3.5-5.1) meq/L Creatinine 0.43 L (0.50-1.00) mg/dL POC Glucose 139 H (68-110) mg/dl Random Glucose 137 H (74-106) mg/dL Calcium 7.9 L (8.5-10.1) mg/dL BMP 11/03/17 09:37 Sodium 133 L Potassium 3.4 L Chloride 99 Carbon Dioxide 23.5 BUN 10 Creatinine 0.43 L Calcium 7.9 L Physical Exam Vital signs: Vital Signs 11/03/17 12:00 11/03/17 16:00 11/03/17 20:00 Temperature 97.6 F 97.5 F L 97.9 F Pulse Rate 76 85 85 Respiratory Rate 18 18 17 Blood Pressure 150/73 H 147/76 H 138/76 Pulse Oximetry 96 95 96 11/03/17 20:07 11/03/17 23:58 11/04/17 00:00 Temperature 97.8 F Pulse Rate 98 H 83 81 Respiratory Rate 17 Blood Pressure 132/74 Pulse Oximetry 97 11/04/17 04:00 11/04/17 08:00 Temperature 98.5 F 97.9 F Pulse Rate 78 84 Respiratory Rate 17 15 Blood Pressure 163/86 H 164/89 H Pulse Oximetry 95 96 Intake & Output 11/03/17 11/04/17 11/04/17 18:59 06:59 18:59 Intake Total 1500 / 1500 1208 / 1208 100 / 100 Output Total 425 / 425 750 / 750 Balance 1075 / 1075 458 / 458 100 / 100 Weight 56.2 kg Intake: IV 1380 / 1380 1208 / 1208 100 / 100 NS Inj 1,000 ML @ 75 mls/hr IV. 980 / 980 758 / 758 CONT .[id number] [facility] Rx#:[id number] Azactam Inj 2 GM In NS Inj 100 200 / 200 100 / 100 100 / 100 ML @ 200 mls/hr IV.SIG Q8H [facility] Rx#:[id number] Vancomycin Inj 1,000 MG In NS 250 / 250 Inj 250 ML @ 250 mls/hr IV.SIG Q18H [facility] Rx#:[id number] Flagyl 500 MG Inj 100 ML @ 100 200 / 200 100 / 100 mls/hr IV.SIG Q8H [facility] Rx#: [id number] Oral 120 / 120 Output: Urine 425 / 425 750 / 750 Other: Date of Last Bowel Movement 10/28/17 # Bowel Movements 1 - Constitutional no acute distress - Routine HEENT Exam Head: Present: normocephalic Eye: Present: PERRL ENT: Present: mucous membranes moist - Routine Neck Exam Present: supple, full ROM - Routine Respiratory Exam Present: CTA bilaterally - Routine Cardiovascular Exam Present: RRR - Routine Abdominal Exam Present: soft, normoactive bowel sounds - Routine Extremities Exam Present: full ROM Comments: Dressing intact left foot second digit. - Routine Skin Exam Present: intact - Routine Neurological Exam Present: alert - Detailed Neurological Exam: Coma Scale Eye Opening: Spontaneous Verbal Response: Confused Motor Response: Obey commands [place] Coma Scale Total: 14 - Routine Psychiatric Exam Comments: Pleasantly confused Assessment and Plan - Assessment (1) Type 2 diabetes mellitus Code(s): E11.9 - Type 2 diabetes mellitus without complications Status: Chronic Plan: Cont home regimen and monitor closely and adjust therapy as needed. Glucose 110- 139 over the past 24 hours. Osteo of second digit and decision regarding amputation pending daughter decision (2) Hypertension associated with diabetes Code(s): E11.59 - Type 2 diabetes mellitus with other circulatory complications ; I10 - Essential (primary) hypertension Status: Chronic Plan: Cont home meds and monitor. Adjust therapy as needed to maintain control. (3) Hypothyroid Code(s): E03.9 - Hypothyroidism, unspecified Status: Acute Plan: Cont home meds and F/U. (4) Hypokalemia Code(s): E87.6 - Hypokalemia Status: Acute Plan: Supplement with PO KCL and recheck next week. - Assessment and Plan Osteo left foot sent to hospital per POD instructions. On antibiotics and POD suggeests decision per family/patient regarding amputation of digit vs jail antibiotics. 10/30/17- Patient voices that they have decided to go with 6 weeks of antibiotics , as wound is responding per podiatry notes. Will plan for DC once Antibiotics arranges. 10/31/17- Uneventful night reported, VSS afebrile. BS <150 last 24h. Will need 6 wks of antibiotics, currently on Levaquin, Flagyl and vanco. Will consult ID for further recommendations. She resides in [place], may need snf placement for IV antibiotics. Will await for ID rec's. Discussed with Case art and RN 11/01/17- See by ID recommends vascular consult, VSS afebrile. Bs well controlled.Levaquin DC, cont vanco start azactam. will cont to follow rec's PT activity ordered. 11/02/17- Seen this am she is alert, labs show Potassium 3.0, will replace. Vss afebrile. Seen by vascular, he does not recommends conservative management , with only emergent surgical intervention related to functional decline. Family to decide between amputation or iv antibiotics. Will likely beed snf placement for deconditioning. 11/03/17- call placed to daughter SHANTI left to determine how to proceed. Will either need amputation or jail antibiotics in snf. BP has been elevated in 180-190 yesterday amlodipine added 10 mg qd, b/p in 160- 170, will cont to monitor. K+ replaced yesterday, bmp pending this am. Cont to monitor 11/04/17 - Daughter still deciding about vermin exterminator antibiotics vs amputation of the second digit on her foot. ID and Vascular Surgery following. SBP still in the 160s, if sustained elevated will make further changes in HTN regimen. DM well controlled. (1) Type 2 diabetes mellitus Qualifiers: Diabetes mellitus complication status: with skin complications Diabetes mellitus complication detail: with foot ulcer
[2017-11-04] MEDS: Vancomycin Inj 1,000 MG in Sodium Chlor 0.9% Inj 250 ML IV.SIG SCH (12:29)
[2017-11-04] MEDS: Metoprolol Tartrate 25 MG Tablet PO SCH (20:33)
[2017-11-05] MEDS: Insulin NovoLOG Aspart Correctional Sugar Inj SQ SCH ×3 (02:06→12:10)
[2017-11-05] MEDS: Sod Chloride 0.9% Inj 1,000 ML IV.CONT SCH ×3 (03:55→15:42)
[2017-11-05] MEDS ORDERED: Pharmacy Ordered Lab Info OTHER ONE (05:45)
[2017-11-05] MEDS: Vancomycin Inj 1,000 MG in Sodium Chlor 0.9% Inj 250 ML IV.SIG SCH ×2 (06:10→18:10)
[2017-11-05 07:00] LABS: Glomerular Filtration Rate Greater Than 89 mL/min (>89); Vancomycin,Trough 9.3 mcg/mL (5.0-10.0)
[2017-11-05] MEDS: amLODIPine 10 MG Tablet PO SCH (08:57)
[2017-11-05] MEDS: Sodium Chloride 0.9% 2 ML Flush BID IV.FLUSH SCH ×2 (08:57→22:30)
[2017-11-05] MEDS: Senna/Docusate Sodium 8.6/50 MG Tablet PO SCH ×2 (08:57→22:29)
[2017-11-05] MEDS: Sodium Chloride 1 GM Tablet PO SCH ×2 (08:57→22:29)
[2017-11-05] MEDS: Aztreonam Inj 2 GM in Sodium Chloride 0.9% Inj 100 ML IV.SIG SCH ×4 (08:57→16:40)
[2017-11-05] MEDS: Ascorbic Acid 500 MG Tablet PO SCH (08:58)
--- NOTE | 2017-11-05 10:28 | P.PNFP ---
Subjective Interval history: She is awake and conversive this AM but remains confused. No family at bedside again today and decision from daughter about amputation vs longterm antibiotics is pending. Results - Labs Result diagrams: 11/02/17 07:05 11/05/17 06:05 Abnormal lab results 11/04/17 11/05/17 11/05/17 Range/Units 12:26 06:05 07:23 Creatinine 0.34 L (0.50-1.00) mg/dL POC Glucose 118 H 131 H (68-110) mg/dl BMP 11/05/17 06:05 Creatinine 0.34 L Physical Exam Vital signs: Vital Signs 11/04/17 12:00 11/04/17 16:00 11/04/17 20:00 Temperature 97.5 F L 97.9 F 98.2 F Pulse Rate 122 H 98 H 115 H Respiratory Rate 16 16 15 Blood Pressure 167/80 H 139/87 164/98 H Pulse Oximetry 96 96 96 11/04/17 23:49 11/05/17 00:00 11/05/17 04:00 Temperature 98 F 98.4 F Pulse Rate 69 93 H 97 H Respiratory Rate 19 19 Blood Pressure 158/82 H 160/92 H Pulse Oximetry 98 94 L 11/05/17 08:00 Temperature 97.8 F Pulse Rate 91 H Respiratory Rate 16 Blood Pressure 172/101 H Pulse Oximetry 97 Intake & Output 11/04/17 11/05/17 11/05/17 18:59 06:59 18:59 Intake Total 1910 / 1910 540 / 540 1350 / 1350 Output Total 250 / 250 1250 / 1250 Balance 1660 / 1660 -710 / -710 1350 / 1350 Weight 58.2 kg Intake: IV 1550 / 1550 300 / 300 1350 / 1350 NS Inj 1,000 ML @ 75 mls/hr IV. 1000 / 1000 1000 / 1000 CONT .[id number] [facility] Rx#:[id number] Azactam Inj 2 GM In NS Inj 100 200 / 200 100 / 100 100 / 100 ML @ 200 mls/hr IV.SIG Q8H [facility] Rx#:[id number] Vancomycin Inj 1,000 MG In NS 250 / 250 250 / 250 Inj 250 ML @ 250 mls/hr IV.SIG Q18H [facility] Rx#:[id number] Flagyl 500 MG Inj 100 ML @ 100 100 / 100 200 / 200 mls/hr IV.SIG Q8H [facility] Rx#: [id number] Oral 360 / 360 240 / 240 Output: Urine 250 / 250 1250 / 1250 Other: # Incontinent Voids 1 3 Date of Last Bowel Movement 10/28/17 # Bowel Movements 0 - Constitutional chronically ill appearing - Routine HEENT Exam Head: Present: normocephalic Eye: Present: PERRL ENT: Present: mucous membranes dry Comments: Due to breathing from mouth. - Routine Neck Exam Present: supple - Routine Respiratory Exam Present: CTA bilaterally - Routine Cardiovascular Exam Present: RRR, S1, S2 - Routine Abdominal Exam Present: soft, normoactive bowel sounds - Routine Extremities Exam Comments: Dressing intact on right foot. - Routine Skin Exam Present: intact - Routine Neurological Exam Present: alert - Detailed Neurological Exam: Coma Scale Eye Opening: Spontaneous Verbal Response: Confused Motor Response: Obey commands [place] Coma Scale Total: 14 - Routine Psychiatric Exam Present: normal affect Assessment and Plan - Assessment (1) Type 2 diabetes mellitus Code(s): E11.9 - Type 2 diabetes mellitus without complications Status: Chronic Plan: Cont home regimen and monitor closely and adjust therapy as needed. Glucose well controlled over the past 24 hours. Osteo of second digit and decision regarding amputation pending daughter decision (2) Hypertension associated with diabetes Code(s): E11.59 - Type 2 diabetes mellitus with other circulatory complications ; I10 - Essential (primary) hypertension Status: Chronic Plan: Continued home meds but poorly controlled HTN noted requiring frequent enalapril IV so I have added PO Vasotec to her regimen and will cont to monitor.and monitor. Adjust therapy as needed to maintain control. (3) Hypothyroid Code(s): E03.9 - Hypothyroidism, unspecified Status: Acute Plan: Cont home meds and F/U. (4) Hypokalemia Code(s): E87.6 - Hypokalemia Status: Acute Plan: Supplement with PO KCL and recheck next week. - Assessment and Plan Osteo left foot sent to hospital per POD instructions. On antibiotics and POD suggeests decision per family/patient regarding amputation of digit vs intermediate teacher antibiotics. 10/30/17- Patient voices that they have decided to go with 6 weeks of antibiotics , as wound is responding per podiatry notes. Will plan for DC once Antibiotics arranges. 10/31/17- Uneventful night reported, VSS afebrile. BS <150 last 24h. Will need 6 wks of antibiotics, currently on Levaquin, Flagyl and vanco. Will consult ID for further recommendations. She resides in senior [facility], may need snf placement for IV antibiotics. Will await for ID rec's. Discussed with Case art and RN 11/01/17- See by ID recommends vascular consult, VSS afebrile. Bs well controlled.Levaquin DC, cont vanco start azactam. will cont to follow rec's PT activity ordered. 11/02/17- Seen this am she is alert, labs show Potassium 3.0, will replace. Vss afebrile. Seen by vascular, he does not recommends conservative management , with only emergent surgical intervention related to functional decline. Family to decide between amputation or iv antibiotics. Will likely beed snf placement for deconditioning. 11/03/17- call placed to daughter VM left to determine how to proceed. Will either need amputation or longterm antibiotics in snf. BP has been elevated in 180-190 yesterday amlodipine added 10 mg qd, b/p in 160- 170, will cont to monitor. K+ replaced yesterday, bmp pending this am. Cont to monitor 11/04/17 - Daughter still deciding about longterm antibiotics vs amputation of the second digit on her foot. ID and Vascular Surgery following. SBP still in the 160s, if sustained elevated will make further changes in HTN regimen. DM well controlled. 11/05/17 - Beginning to look like case management will need to help pin down her daughter regarding consent for amp of second toe or she will be D/Flo back to SNF and consigned to longterm antibiotics. ID and POD following and also waiting for her decision. (1) Type 2 diabetes mellitus Qualifiers: Diabetes mellitus complication status: with skin complications Diabetes mellitus complication detail: with foot ulcer
[2017-11-05] MEDS: Metoprolol Tartrate 25 MG Tablet PO SCH (22:30)
[2017-11-06] MEDS: Aztreonam Inj 2 GM in Sodium Chloride 0.9% Inj 100 ML IV.SIG SCH ×3 (00:18→16:01)
[2017-11-06] MEDS: Sod Chloride 0.9% Inj 1,000 ML IV.CONT SCH ×4 (00:19→18:54)
[2017-11-06 05:03] LABS: Baso % (Auto) 0.4 % (0.0-2.0); Eos # (Auto) 0.1 th/mm3 (0.0-0.4); Eos % (Auto) 0.7 % (0.0-4.0); Hematocrit 41.3 % (35.0-46.0); Hemoglobin 13.6 gm/dL (11.6-15.3); Lymph % (Auto) 13.4 % (9.0-44.0); Mean Corpuscular HGB Conc 32.9 % (32.0-36.0); Mean Corpuscular Hemoglobin 26.4 pg (27.0-34.0); Mean Corpuscular Volume 80.4 fL (80.0-100.0); Mean Platelet Volume 7.2 fL (7.0-11.0); Mono # (Auto) 0.6 th/mm3 (0.0-0.9); Neut % (Auto) 77.5 % (16.0-70.0); Platelet Count 206 th/mm3 (150-450); Red Blood Count 5.14 mil/mm3 (4.00-5.30); Red Cell Distribution Width 14.9 % (11.6-17.2); White Blood Count 7.7 th/mm3 (4.0-11.0)
[2017-11-06 05:32] LABS: Alanine Aminotransferase 14 U/L (10-53); Albumin 2.4 g/dL (3.4-5.0); Alkaline Phosphatase 82 U/L (45-117); Anion Gap 7 meq/L (5-15); Aspartate Aminotransferase 28 U/L (15-37); Blood Urea Nitrogen 13 mg/dL (7-18); Calcium 7.9 mg/dL (8.5-10.1); Carbon Dioxide 29.8 meq/L (21.0-32.0); Chloride 102 meq/L (98-107); Glomerular Filtration Rate Greater Than 89 mL/min (>89); Glucose,Random 130 mg/dL (74-106); Sodium 139 meq/L (136-145); Total Protein 6.2 g/dL (6.4-8.2)
[2017-11-06 05:36] LABS: Potassium 2.9 meq/L (3.5-5.1)
[2017-11-06] MEDS: Vancomycin Inj 1,000 MG in Sodium Chlor 0.9% Inj 250 ML IV.SIG SCH ×2 (05:38→18:45)
[2017-11-06] MEDS ORDERED: Potassium Chlor 40 mEq Premix 40 MEQ/100 ML PIGGYBACK IV.SIG ONE (07:00)
[2017-11-06] MEDS: Ascorbic Acid 500 MG Tablet PO SCH (08:44)
[2017-11-06] MEDS: Sodium Chloride 1 GM Tablet PO SCH ×2 (08:44→21:05)
[2017-11-06] MEDS: Senna/Docusate Sodium 8.6/50 MG Tablet PO SCH ×2 (08:44→21:05)
[2017-11-06] MEDS: amLODIPine 10 MG Tablet PO SCH (08:45)
[2017-11-06] MEDS: Potassium Chlor 20 mEq Premix 20 MEQ/100 ML PIGGYBACK IV.SIG SCH ×2 (08:46→10:50)
[2017-11-06] MEDS: Sodium Chloride 0.9% 2 ML Flush BID IV.FLUSH SCH ×2 (08:59→21:05)
--- NOTE | 2017-11-06 09:29 | P.PNFP ---
Subjective Interval history: Awake, denies any complaints this am Nurse starting new IV for low potassium Denies Cp, SOB Results - Labs Result diagrams: 11/06/17 04:25 11/06/17 04:25 Abnormal lab results 11/06/17 11/06/17 Range/Units 04:25 04:25 MCH 26.4 L (27.0-34.0) pg Neut % (Auto) 77.5 H (16.0-70.0) % Potassium 2.9 L* (3.5-5.1) meq/L Creatinine 0.40 L (0.50-1.00) mg/dL Random Glucose 130 H (74-106) mg/dL Calcium 7.9 L (8.5-10.1) mg/dL Total Protein 6.2 L (6.4-8.2) g/dL Albumin 2.4 L (3.4-5.0) g/dL Short CBC 11/06/17 Range/Units 04:25 WBC 7.7 (4.0-11.0) th/mm3 Hgb 13.6 (11.6-15.3) gm/dL Hct 41.3 (35.0-46.0) % Plt Count 206 (150-450) th/mm3 BMP 11/06/17 04:25 Sodium 139 Potassium 2.9 L* Chloride 102 Carbon Dioxide 29.8 BUN 13 Creatinine 0.40 L Calcium 7.9 L Liver Function 11/06/17 Range/Units 04:25 Total Bilirubin 0.4 (0.2-1.0) mg/dL AST 28 (15-37) U/L ALT 14 (10-53) U/L Alkaline Phosphatase 82 (45-117) U/L Albumin 2.4 L (3.4-5.0) g/dL Physical Exam Vital signs: Vital Signs 11/05/17 12:00 11/05/17 16:00 11/05/17 20:00 Temperature 98.1 F 98.1 F 98.9 F Pulse Rate 81 107 H 107 H Respiratory Rate 16 16 15 Blood Pressure 126/87 134/98 H 166/95 H Pulse Oximetry 97 95 94 L 11/06/17 00:00 11/06/17 04:00 11/06/17 08:00 Temperature 97.4 F L 98 F 97.9 F Pulse Rate 85 92 H 113 H Respiratory Rate 19 17 20 Blood Pressure 168/86 H 168/92 H 183/89 H Pulse Oximetry 95 95 93 L Intake & Output 11/05/17 11/06/17 11/06/17 18:59 06:59 18:59 Intake Total 2009 1700 / 1700 Output Total 500 / 500 1400 / 1400 Balance 1510 / 1510 300 / 300 Weight 60.9 kg Intake: IV 1650 / 1650 1700 / 1700 NS Inj 1,000 ML @ 75 mls/hr IV. 1000 / 1000 1000 / 1000 CONT .[id number] [facility] Rx#:[id number] Azactam Inj 2 GM In NS Inj 100 200 / 200 100 / 100 ML @ 200 mls/hr IV.SIG Q8H [facility] Rx#:[id number] Vancomycin Inj 1,000 MG In NS 250 / 250 500 / 500 Inj 250 ML @ 250 mls/hr IV.SIG Q12H [facility] Rx#:[id number] Flagyl 500 MG Inj 100 ML @ 100 200 / 200 100 / 100 mls/hr IV.SIG Q8H [facility] Rx#: [id number] Oral 360 / 360 Output: Urine 500 / 500 1400 / 1400 Other: # Incontinent Voids 2 Date of Last Bowel Movement 11/05/17 # Bowel Movements 0 # Incontinent Bowel Movements 1 - Routine HEENT Exam Head: Present: normocephalic Eye: Present: PERRL ENT: Present: mucous membranes moist - Routine Neck Exam Present: supple - Routine Respiratory Exam Present: CTA bilaterally - Routine Cardiovascular Exam Present: S1, S2 - Routine Abdominal Exam Present: soft, normoactive bowel sounds - Routine Extremities Exam Present: edema - Routine Skin Exam Present: dry, warm - Routine Neurological Exam Present: alert, oriented X3 - Routine Psychiatric Exam Present: cooperative Assessment and Plan - Assessment (1) Type 2 diabetes mellitus Code(s): E11.9 - Status: Chronic Plan: Cont home regimen and monitor closely and adjust therapy as needed. Glucose well controlled over the past 24 hours. (2) Hypertension associated with diabetes Code(s): E11.59 - ; I10 - Status: Chronic Plan: Continued home meds but poorly controlled HTN noted requiring frequent enalapril IV so I have added PO Vasotec to her regimen and will cont to monitor.and monitor. Adjust therapy as needed to maintain control. (3) Hypothyroid Code(s): E03.9 - Status: Acute Plan: Cont home meds and F/U. (4) Hypokalemia Code(s): E87.6 - Status: Acute Plan: Supplement with K with 40 meq iv, repeat in am - Assessment and Plan Osteo left foot sent to hospital per POD instructions. On antibiotics and POD suggeests decision per family/patient regarding amputation of digit vs intermodal dispatcher antibiotics. 10/30/17- Patient voices that they have decided to go with 6 weeks of antibiotics , as wound is responding per podiatry notes. Will plan for DC once Antibiotics arranges. 10/31/17- Uneventful night reported, VSS afebrile. BS <150 last 24h. Will need 6 wks of antibiotics, currently on Levaquin, Flagyl and vanco. Will consult ID for further recommendations. She resides in [place], may need snf placement for IV antibiotics. Will await for ID rec's. Discussed with Case art and RN 11/01/17- See by ID recommends vascular consult, VSS afebrile. Bs well controlled.Levaquin DC, cont vanco start azactam. will cont to follow rec's PT activity ordered. 11/02/17- Seen this am she is alert, labs show Potassium 3.0, will replace. Vss afebrile. Seen by vascular, he does not recommends conservative management , with only emergent surgical intervention related to functional decline. Family to decide between amputation or iv antibiotics. Will likely beed snf placement for deconditioning. 11/03/17- call placed to daughter VM left to determine how to proceed. Will either need amputation or intermodal dispatcher antibiotics in snf. BP has been elevated in 180-190 yesterday amlodipine added 10 mg qd, b/p in 160- 170, will cont to monitor. K+ replaced yesterday, bmp pending this am. Cont to monitor 11/04/17 - Daughter still deciding about intermodal dispatcher antibiotics vs amputation of the second digit on her foot. ID and Vascular Surgery following. SBP still in the 160s, if sustained elevated will make further changes in HTN regimen. DM well controlled. 11/05/17 - Beginning to look like case management will need to help pin down her daughter regarding consent for amp of second toe or she will be D/Flo back to SNF and consigned to care home antibiotics. ID and POD following and also waiting for her decision. 11/06/17- Potassium 2.9 this am, 40 MEQ iv given will repeat after. Attempt made to tt daughter, about future plan. Per nursing note family wished to proceed with the amputation. Well reconsult podiatry. (1) Type 2 diabetes mellitus Qualifiers: Diabetes mellitus complication status: with skin complications Diabetes mellitus complication detail: with foot ulcer
[2017-11-06] MEDS: Metoprolol Tartrate 25 MG Tablet PO SCH (21:04)
[2017-11-07] MEDS: Aztreonam Inj 2 GM in Sodium Chloride 0.9% Inj 100 ML IV.SIG SCH ×3 (02:14→18:15)
[2017-11-07] MEDS: Vancomycin Inj 1,000 MG in Sodium Chlor 0.9% Inj 250 ML IV.SIG SCH ×2 (05:33→18:27)
[2017-11-07 05:44] LABS: Baso % (Auto) 0.3 % (0.0-2.0); Eos # (Auto) 0.1 th/mm3 (0.0-0.4); Eos % (Auto) 1.3 % (0.0-4.0); Hematocrit 39.7 % (35.0-46.0); Hemoglobin 13.4 gm/dL (11.6-15.3); Lymph # (Auto) 1.2 th/mm3 (1.0-4.8); Lymph % (Auto) 15.9 % (9.0-44.0); Mean Corpuscular HGB Conc 33.7 % (32.0-36.0); Mean Corpuscular Hemoglobin 26.7 pg (27.0-34.0); Mean Corpuscular Volume 79.2 fL (80.0-100.0); Mean Platelet Volume 7.7 fL (7.0-11.0); Mono # (Auto) 0.7 th/mm3 (0.0-0.9); Mono % (Auto) 9.2 % (0.0-8.0); Neut # (Auto) 5.3 th/mm3 (1.8-7.7); Neut % (Auto) 73.3 % (16.0-70.0); Platelet Count 215 th/mm3 (150-450); Red Blood Count 5.01 mil/mm3 (4.00-5.30); White Blood Count 7.3 th/mm3 (4.0-11.0)
[2017-11-07] MEDS ORDERED: Pharmacy Ordered Lab Info OTHER ONE (05:45)
[2017-11-07 06:15] LABS: Glomerular Filtration Rate Greater Than 89 mL/min (>89)
[2017-11-07 08:43] LABS: Anion Gap 10 meq/L (5-15); Blood Urea Nitrogen 12 mg/dL (7-18); Calcium 7.5 mg/dL (8.5-10.1); Carbon Dioxide 29.3 meq/L (21.0-32.0); Chloride 104 meq/L (98-107); Glomerular Filtration Rate Greater Than 89 mL/min (>89); Glucose,Random 123 mg/dL (74-106); Sodium 143 meq/L (136-145)
[2017-11-07] MEDS: Senna/Docusate Sodium 8.6/50 MG Tablet PO SCH (09:03)
[2017-11-07] MEDS: Sodium Chloride 1 GM Tablet PO SCH ×2 (09:04→21:19)
[2017-11-07] MEDS: Sodium Chloride 0.9% 2 ML Flush BID IV.FLUSH SCH (09:06)
[2017-11-07] MEDS: amLODIPine 10 MG Tablet PO SCH (09:06)
[2017-11-07] MEDS: Ascorbic Acid 500 MG Tablet PO SCH (09:06)
[2017-11-07] MEDS: Sod Chloride 0.9% Inj 1,000 ML IV.CONT SCH ×2 (09:07→21:20)
--- NOTE | 2017-11-07 12:11 | P.PNFP ---
Subjective Interval history: no reported complaints NPO for amputation of left toe Results - Labs Result diagrams: 11/07/17 03:53 11/07/17 07:17 Abnormal lab results 11/06/17 11/07/17 11/07/17 Range/Units 20:13 03:53 03:53 MCV 79.2 L (80.0-100.0) fL MCH 26.7 L (27.0-34.0) pg Neut % (Auto) 73.3 H (16.0-70.0) % [place] % (Auto) 9.2 H (0.0-8.0) % Potassium (3.5-5.1) meq/L Creatinine 0.39 L (0.50-1.00) mg/dL POC Glucose 123 H (68-110) mg/dl Random Glucose (74-106) mg/dL Calcium (8.5-10.1) mg/dL Vancomycin Trough (5.0-10.0) mcg/mL 11/07/17 11/07/17 Range/Units 05:30 07:17 MCV (80.0-100.0) fL MCH (27.0-34.0) pg Neut % (Auto) (16.0-70.0) % [place] % (Auto) (0.0-8.0) % Potassium 3.0 L (3.5-5.1) meq/L Creatinine 0.37 L (0.50-1.00) mg/dL POC Glucose (68-110) mg/dl Random Glucose 123 H (74-106) mg/dL Calcium 7.5 L (8.5-10.1) mg/dL Vancomycin Trough 16.2 H (5.0-10.0) mcg/mL Short CBC 11/07/17 Range/Units 03:53 WBC 7.3 (4.0-11.0) th/mm3 Hgb 13.4 (11.6-15.3) gm/dL Hct 39.7 (35.0-46.0) % Plt Count 215 (150-450) th/mm3 BMP 11/07/17 11/07/17 03:53 07:17 Sodium 143 Potassium 3.0 L Chloride 104 Carbon Dioxide 29.3 BUN 12 Creatinine 0.39 L 0.37 L Calcium 7.5 L Physical Exam Vital signs: Vital Signs 11/06/17 16:00 11/06/17 19:52 11/06/17 20:00 Temperature 98.9 F 98.5 F Pulse Rate 102 H 104 H 69 Respiratory Rate 21 20 Blood Pressure 155/90 H 155/86 H Pulse Oximetry 93 L 94 L 11/07/17 00:00 11/07/17 04:00 11/07/17 08:00 Temperature 98.1 F 98.1 F 98.0 F Pulse Rate 71 115 H 106 H Respiratory Rate 17 22 Blood Pressure 158/80 H 168/88 H 157/83 H Pulse Oximetry 94 L 95 96 Intake & Output 11/06/17 11/07/17 11/07/17 18:59 06:59 18:59 Intake Total 1840 / 1840 700 / 700 Output Total 300 / 300 900 / 900 Balance 1540 / 1540 -200 / -200 Intake: IV 1600 / 1600 700 / 700 NS Inj 1,000 ML @ 75 mls/hr IV. 1000 / 1000 CONT .[id number] [facility] Rx#:[id number] Azactam Inj 2 GM In NS Inj 100 200 / 200 100 / 100 ML @ 200 mls/hr IV.SIG Q8H [facility] Rx#:[id number] KCl 20 mEq Premix Inj 20 meq In 200 / 200 100 ml @ 50 mls/hr IV.SIG Q2H [facility] Rx#:[id number] Vancomycin Inj 1,000 MG In NS 500 / 500 Inj 250 ML @ 250 mls/hr IV.SIG Q12H [facility] Rx#:[id number] Flagyl 500 MG Inj 100 ML @ 100 200 / 200 100 / 100 mls/hr IV.SIG Q8H [facility] Rx#: [id number] Oral 240 / 240 Output: Urine 300 / 300 900 / 900 Other: Date of Last Bowel Movement 11/06/17 11/06/17 # Bowel Movements 0 - Constitutional no acute distress - Routine HEENT Exam Eye: Present: PERRL ENT: Present: mucous membranes moist - Routine Neck Exam Present: supple - Routine Respiratory Exam Present: CTA bilaterally - Routine Cardiovascular Exam Present: S1, S2 - Routine Abdominal Exam Present: soft - Routine Skin Exam Present: dry, warm - Routine Neurological Exam Present: alert - Routine Psychiatric Exam Present: cooperative Assessment and Plan - Assessment (1) Type 2 diabetes mellitus Code(s): E11.9 - Type 2 diabetes mellitus without complications Status: Chronic Plan: Cont home regimen and monitor closely and adjust therapy as needed. Glucose well controlled over the past 24 hours. (2) Hypertension associated with diabetes Code(s): E11.59 - Type 2 diabetes mellitus with other circulatory complications ; I10 - Essential (primary) hypertension Status: Chronic Plan: Continued home meds but poorly controlled HTN noted requiring frequent enalapril IV so I have added PO Vasotec to her regimen and will cont to monitor.and monitor. Adjust therapy as needed to maintain control. (3) Hypothyroid Code(s): E03.9 - Hypothyroidism, unspecified Status: Acute Plan: Cont home meds and F/U. (4) Hypokalemia Code(s): E87.6 - Hypokalemia Status: Acute Plan: cont to monitor replace as needed - Assessment and Plan Osteo left foot sent to hospital per POD instructions. On antibiotics and POD suggeests decision per family/patient regarding amputation of digit vs terminal worker antibiotics. 10/30/17- Patient voices that they have decided to go with 6 weeks of antibiotics , as wound is responding per podiatry notes. Will plan for DC once Antibiotics arranges. 10/31/17- Uneventful night reported, VSS afebrile. BS <150 last 24h. Will need 6 wks of antibiotics, currently on Levaquin, Flagyl and vanco. Will consult ID for further recommendations. She resides in care home, may need snf placement for IV antibiotics. Will await for ID rec's. Discussed with Case art and RN 11/01/17- See by ID recommends vascular consult, VSS afebrile. Bs well controlled.Levaquin DC, cont vanco start azactam. will cont to follow rec's PT activity ordered. 11/02/17- Seen this am she is alert, labs show Potassium 3.0, will replace. Vss afebrile. Seen by vascular, he does not recommends conservative management , with only emergent surgical intervention related to functional decline. Family to decide between amputation or iv antibiotics. Will likely beed snf placement for deconditioning. 11/03/17- call placed to daughter SHANTI left to determine how to proceed. Will either need amputation or terminal worker antibiotics in snf. BP has been elevated in 180-190 yesterday amlodipine added 10 mg qd, b/p in 160- 170, will cont to monitor. K+ replaced yesterday, bmp pending this am. Cont to monitor 11/04/17 - Daughter still deciding about terminal worker antibiotics vs amputation of the second digit on her foot. ID and Vascular Surgery following. SBP still in the 160s, if sustained elevated will make further changes in HTN regimen. DM well controlled. 11/05/17 - Beginning to look like case management will need to help pin down her daughter regarding consent for amp of second toe or she will be D/Flo back to SNF and consigned to terminal worker antibiotics. ID and POD following and also waiting for her decision. 11/06/17- Potassium 2.9 this am, 40 MEQ iv given will repeat after. Attempt made to tt daughter, about future plan. Per nursing note family wished to proceed with the amputation. Well reconsult podiatry. 11/07/17- Scheduled for amputation of left foot diget secondary to osteomyelitis and PVD, not surgical canidate for any vascular intervention. Potassium 3.0 this am, will replace. VSS afebrile. (1) Type 2 diabetes mellitus Qualifiers: Diabetes mellitus complication status: with skin complications Diabetes mellitus complication detail: with foot ulcer
[2017-11-07] MEDS ORDERED: Chlorhexidine Gluconate 2% 1 Pack (2 Cloths) TOPICAL ONE (14:35)
[2017-11-07] MEDS ORDERED: Metoprolol Tartrate 25 MG Tablet PO ONE (14:35)
[2017-11-07] MEDS ORDERED: Sodium Chlor 0.9% Inj 500 ML IV.SIG SCH (15:00)
[2017-11-07] MEDS ORDERED: Lidocaine PF 1% Inj 5 ML Syringe OTHER ONE (15:30)
[2017-11-07] MEDS ORDERED: Phenylephrine/NS 1000 MCG/10ML Syringe IV.PUSH ONE (15:30)
--- NOTE | 2017-11-07 16:22 | P.BOP ---
- Preoperative Diagnosis (1) Osteomyelitis of toe of left foot (2) Type 2 diabetes mellitus - Postoperative Diagnosis (1) Osteomyelitis of toe of left foot (2) Type 2 diabetes mellitus Date of procedure: 11/07/17 Procedure: left 2nd digit amputation. Anesthesia: MAC Surgeon: Mer Waterman DPM Estimated blood loss (mL): 0 Tourniquet time (min): 15 (Left ankle) Pathology: none sent Condition: stable Disposition: PACU
[2017-11-07] MEDS ORDERED: Naloxone Inj 0.4 MG/ML Vial IV.PUSH PRN (16:23)
[2017-11-07] MEDS ORDERED: Misc Info for Pharmacy OTHER STA (16:23)
[2017-11-07] MEDS ORDERED: fentaNYL Citrate Inj 100 MCG/2 ML Ampul ONE (16:43)
--- NOTE | 2017-11-07 17:21 | XR ---
EXAM DATE: 11/07/2017 12:00 AM EDT AGE/SEX: 87 years / Female INDICATIONS: Post op left foot after amputation for osteomyelitis. CLINICAL DATA: This is the patient's initial encounter. Patient reports that signs and symptoms have been present for 1 day and indicates a pain score of Nonresponsive. MEDICAL/SURGICAL HISTORY: . Carcinoma, colon. Hypertension. Diabetes mellitus type II. . Co ronary artery stent. Knee sx, Wrist sx. [place] [facility] [place]/O [place]. . FINDINGS: AP, lateral and oblique views of the left foot were obtained and demonstrate the patient is status po st amputation of the second digit down to level of the metatarsal head. There is diffuse osteopenia a nd moderate degenerative joint changes with sclerosis and spurring. There is a small area of gas rell cent to the second metatarsal head as well as soft tissue swelling. Mild vascular calcifications are present. CONCLUSION: Status post amputation of the second digit down to level of the metatarsal head with postsurgical elvia nges. Osteopenia and moderate osteoarthritic change. Electronically signed by: Johnathan Shaw MD 11/07/2017 5:20 PM EDT
[2017-11-07] MEDS ORDERED: Senna/Docusate Sodium 8.6/50 MG Tablet PO SCH (21:00)
[2017-11-07] MEDS: Metoprolol Tartrate 25 MG Tablet PO SCH (21:18)
--- NOTE | 2017-11-07 23:28 | MP ---
cc: Mer Waterman DPM DATE OF OPERATION: 11/07/2017 PREOPERATIVE DIAGNOSIS: Left second digit osteomyelitis. POSTOPERATIVE DIAGNOSIS: Left second digit osteomyelitis. PROCEDURE PERFORMED: Left second digit amputation. ANESTHESIOLOGIST: Dr. Niño. ANESTHESIA: General. HEMOSTASIS: Left ankle tourniquet, 250 mmHg for 15 minutes. ESTIMATED BLOOD LOSS: Zero. MATERIALS: 2-0 Vicryl, 3-0 nylon. BRIEF HISTORY: The patient is an 87-year-old female who has had chronic left second digit ulcer. She has a history of dementia and her daughter is her point of care. The patient as well as daughter, we discussed previously of the IV antibiotics for her osteomyelitis, but after careful consideration between the patient, her daughter and physicians including vascular, they elected to go ahead with the amputation of the left second digit. Vascular surgery has recommended to go ahead with surgical intervention at this point in time. Risks, benefits, pros and cons ____ the patient fully consented to surgical intervention. No guarantees were given or implied. PROCEDURE IN DETAIL: The patient was brought into the OR and placed on the operating table in supine position. After MAC, LMA was carried out, appropriate timeout was carried out and identifiers were carried out. Attention was then directed to the left foot, was prepped, scrubbed and draped in usual sterile aseptic manner. Left ankle tourniquet was applied. Attention was then directed to the left second digit with disarticulation amputation was carried out. There is no purulent drainage proximally. Tissues looked healthy. Second metatarsal head intact. The incision was copiously irrigated with normal sterile saline impregnated with 2 ____ of gentamicin. The incision was then closed in layers using 2-0 Vicryl deep and 3-0 nylon in a simple suture pattern. Culture of the open wound was carried out as well as a bone biopsy of the head of the proximal phalanx of the 2nd digit was sent for both aerobic, anaerobic, Gram stain, culture and sensitivity. The patient tolerated the procedure and the patient should be transferred back here for brief period of postop monitoring, after which she will be discharged and followed appropriately while in-house. Mer Waterman DPM SR/shola/antoni , 08:30 PM , 08:37 PM
[2017-11-08 00:51] VITALS: TEMP 98
[2017-11-08 01:58] VITALS: RESP 16
--- NOTE | 2017-11-08 01:58 | P.PNADD ---
Addendum to Inpatient Note Reason for Addendum: Additional Documentation Additional information: Residents were called at 0117 to respond to a Halicat Patient was found to be unresponsive and in respiratory distress and was being bagged at the time of arrival. O2 saturation was in the low 90. Subjective: Per nursing report: Patient has no history of pulmonary disease and had been doing well post op from amputation of the toe earlier today. O2 sat had been in the mid 90's for the majority of the day without shortness of breath. Patient was saturating in the mid 80's around midnight, she was placed on NC 4L via the mouth and her sats went up to 90. At 0100 this morning she was found to be breathing agonally with O2 sat of 71. Bedside nurse reports she called karen at this point. She was suctioned by respiratory and her sats improved to 82%. She continued to breath agonally, they began to deliver air via bad/mask with improvement of sats to the mid 90's. The patient's official code status in her medical record was full code, however per nursing report she had wanted to be a DNR/DNI. He daughter Milana was documented as the health care surrogate and was on the phone with nursing at the time of our arrival. Dr. Hilario discussed the current situation and the code status at length with Milana who insisted that the correct code status was DNR/DNI , however she wished treatment up until that point. Milana was informed of the severity of the current situation and stated that she was coming to the hospital at this moment. Nursing staff spoke to Dr. Turcios who agreed with her change in code status. Physical exam: General: Prashant Coma Scale 3 -Eye: no eye opening -Verbal: no verbal response -Motor: No motor response HEENT: pupils 2mm and fixed bilaterally Pulmonary: agonal respirations with retractions, coarse breath sounds with poor air movement throughout Cardiac: regular rate and rhythm Extremities: cool, weak distil pulses CXR showed small right pleural effusion and airspace disease in the left lung base ABG showed pH of 6.95, pCO2 of 159, pO2 111, and HCO3 of 33 via 15L on ambu mask A&P: Patient is a 87 year old female post op from toe amputation who developed respiratory distress and desaturation to the 70's. She has no documented history of pulmonary disease in her H&P or most recent progress note. -This may be secondary to an acute process such as PE, aspiration pneumonia or neurologic process such as CVA causing impaired respirations. -Code status was updated to DNR/DNI at the request of health care surrogate and patient's daughter (Milana) -Due to code status, the decision was made to stop bag/mask ventilation and let the patient breath spontaneously on non-rebreather. Agonal respirations continued with sat's in the high 80's and low 90's.
[2017-11-08 01:59] LABS: ABG Base Excess 1.3 mmol/L (-2-2)
[2017-11-08 02:00] VITALS: PULSE 86
[2017-11-08 02:00] LABS: ABG PCO2 159 mmHg (38-42); ABG PO2 111 mmHg (61-120)
[2017-11-08 02:01] VITALS: BP 183/90; O2SAT 95
--- NOTE | 2017-11-08 02:06 | XR ---
EXAM DATE: 11/08/2017 1:37 AM EDT AGE/SEX: 87 years / Female INDICATIONS: Shortness of breath. CLINICAL DATA: This is the patient's initial encounter. Patient reports that signs and symptoms have been present for 1 day and indicates a pain score of Nonresponsive. MEDICAL/SURGICAL HISTORY: Hypertension. Diabetes mellitus type II. None. COMPARISON: [facility] – [place], CHEST 1V SINGLE AP, 10/27/2017. . FINDINGS: Hazy opacity in the mid to lower lung zone on the right. Airspace disease at the left lung base. The cardiomediastinal contours are unremarkable. Osseous structures are intact. CONCLUSION: 1. Small right pleural effusion and airspace disease in the right lower lung zones. 2. Mild airspace disease at the left lung base. Electronically signed by: Jose Rosario MD 11/08/2017 2:04 AM EDT
[2017-11-08] MEDS: Aztreonam Inj 2 GM in Sodium Chloride 0.9% Inj 100 ML IV.SIG SCH (02:21)
== END 2017-11-08 05:20 | disposition expired ==
LOC: NEPE 16:42 → NEDA 18:24 → N04 19:50
PROVIDERS: ADMIT Family Medicine; ATTEND Family Medicine